=== PATIENT | male | born 1955 | race Caucasian/White ===

== ENCOUNTER 2018-11-07 10:08 | Inpatient (IN) ==
[2018-11-07 10:35] LABS: BLOOD TYPE ARTERIAL; SAMPLE BLOOD
[2018-11-07 10:36] LABS: ALLEN TEST YES; BE 4.4 mmoll (-3.0-3.0); HCO3-(ACT) 28.1 mmoll (20.0-26.0); MODALITY ROOM AIR; O2(CT) 18.8 mL/dL (15.0-23.0); PCO2(98.6) 43 mmHg (35-45); PO2(98.6) 62 mmHg (60-100); SAO2 94.6 % (95.0-100.0); pH(98.6) 7.44 (7.35-7.45)
[2018-11-07] MEDS ORDERED: ALBUTEROL NEB INH ONE (11:02)
--- NOTE | 2018-11-07 11:02 | Diag Imaging Result Doc PS360 ---
EXAM: CHEST-2 VIEWS HISTORY: sob TECHNIQUE: Chest two views COMPARISON: 09/17/2018 FINDINGS: The lungs are well expanded. The heart is not enlarged. The vessels are not distended. There are no infiltrates. No pleural effusions. IMPRESSION: No acute abnormality. Electronically signed by Braydon Pierre 11/07/2018 10:59 AM
[2018-11-07] MEDS ORDERED: SOLU-MEDROL IV ONE (11:03)
--- NOTE | 2018-11-07 11:06 | EKG Report ---
Test Performed on : 11/07/2018 10:23:47 AM Test Reason : SOB Blood Pressure : / mmHG Vent. Rate : 103 BPM Atrial Rate : 103 BPM P-R Int : 132 ms QRS Dur : 124 ms QT Int : 380 ms P-R-T Axes : 072 -05 032 degrees QTc Int : 497 ms Sinus tachycardia. Right bundle branch block Abnormal ECG When compared with ECG of 17-SEP-2018 09:21, No significant change was found Unconfirmed Result
[2018-11-07 11:32] LABS: BASO# 0.04 X1000 (0.0-0.2); BASO% 0.6 % (0.0-0.8); EOS% 4.6 % (0.0-10.0); HEMATOCRIT 43.5 % (42.0-52.0); HEMOGLOBIN 14.6 g/dL (14.0-18.0); LYMPH# 0.79 X1000 (1.2-3.4); MCHC 33.6 g/dL (33-37); MCV 95.4 FL (81-99); MONO# 0.55 X1000 (0.11-0.59); MONO% 8.4 % (1.7-9.3); NEUT# 4.88 X1000 (1.4-6.5); NEUT% 74.4 % (42.2-75.2); PLT 226 X1000 (130-400); RBC 4.56 XMIL (4.7-6.1); RDW 13.5 % (11.5-14.5); WBC 6.56 X1000 (4.8-10.8)
[2018-11-07 11:38] LABS: INR 0.89; PROTIME 12.8 Seconds (11.0-16.0); PTT 23.7 Seconds (22.3-41.8)
[2018-11-07 11:52] LABS: AGAP 10; CHLORIDE 96 mmol/L (98-107); GLUCOSE 116 mg/dL (70-104); SODIUM 137 mmol/L (136-145); TCO2 31 mmol/L (25-35)
[2018-11-07 11:53] LABS: ALB/GLOB RATIO 0.9; ALBUMIN 3.3 g/dL (3.5-5.0); ALKALINE PHOSPHATASE 90 U/L (32-122); BUN 4 mg/dL (8-22); CALCIUM 9.5 mg/dL (8.8-10.2); CK PROFILE 46 U/L (24-204); COSMO 272; CREATININE 0.6 mg/dL (0.7-1.2); ESTIMATED GFR > 60; GOT 48 U/L (10-34); GPT 33 U/L (10-44); TOTAL BILIRUBIN 0.68 mg/dL (0.20-1.00); TOTAL PROTEIN 6.8 g/dL (6.3-8.3)
[2018-11-07] MEDS ORDERED: DUONEB (A & A) INH ONE (12:50)
--- NOTE | 2018-11-07 12:51 | PROVIDER DOCUMENTATION ---
This chart was entered by Alexia Sahu Scribe, acting as scribe for Vivi Arrington MD. HPI-Respiratory General - General Chief Complaint: SEPSIS ALERT - D Stated Complaint: SOB Time Seen by Provider: 11/07/18 10:36 Source: patient Allergies/Adverse Reactions: Patient Allergies Allergy/AdvReac Type Severity Reaction Status Date / Time No Known Allergies Allergy Verified 09/17/18 09:36 Home Medications: Home Medication List Medication Instructions Recorded Confirmed Last Taken Type Albuterol Sulfate [Proair Hfa] 2 puff INHALATION Q4-6H PRN PRN #1 09/17/18 Unknown Rx hfa.aer.ad Cyclobenzaprine [Flexeril] 10 mg PO TID PRN #15 tab 09/17/18 Unknown Rx Lisinopril 10 mg PO DAILY #30 tab 09/17/18 Unknown Rx Naproxen [EC-Naprosyn] 500 mg PO BID PRN #30 tablet.dr 09/17/18 Unknown Rx Prednisone 20 mg PO BID #10 tab 09/17/18 Unknown Rx Albuterol Sulfate 2.5 mg INHALATION Q4H PRN PRN #30 11/07/18 Unknown Rx vial.neb Albuterol Sulfate [Albuterol 8.5 gm INHALATION Q4-6H PRN PRN #1 11/07/18 Unknown Rx Sulfate Hfa] hfa.aer.ad Azithromycin [Zithromax Z-Glenn] 250 mg PO DIRECTED #1 pkg 11/07/18 Unknown Rx Oxycodone HCl/Acetaminophen 1 ea PO Q4-6H PRN PRN 5 Days #20 11/07/18 Unknown Rx [Percocet 10-325 mg Tablet] tab Prednisone 20 mg PO DAILY 7 Days #7 tab 11/07/18 Unknown Rx - History of Present Illness-Resp Nature of Presenting Problem: Patient is a 63 year old male who presents to the ED via EMS with shortness of breath. States history of COPD. Reports he can not afford his medications. Denies recently taking steroids. He also states he has chronic low back pain which is worse today. Quality of Pain: reports: tightness Severity in ED: reports: mild Onset/Duration: reports: gradual Timing: reports: still present, getting worse Modifying Factors: worse with: exertion Associated Symptoms: reports: shortness of breath Similar Symptoms Previously?: Yes Recently seen or treated by another doctor?: No Review of Systems - Adult - REVIEW OF SYSTEMS - ADULT Constitutional: reports: no symptoms reported. denies: chills, fever, fatique Eyes: reports: no symptoms reported Ears, Nose, Mouth & Throat: reports: no symptoms reported Cardiovascular: reports: no symptoms reported Respiratory: reports: see HPI, shortness of breath. denies: cough, wheezing Gastrointestinal: reports: no symptoms reported Genitourinary: reports: no symptoms reported Musculoskeletal: reports: back pain. denies: muscle aches, neck pain Integumentary: reports: no symptoms reported Neurological: reports: no symptoms reported Psychiatric: reports: no symptoms reported Endocrine: reports: no symptoms reported Hematologic/Lymphatic: reports: no symptoms reported Allergic/Immunologic: reports: no symptoms reported All Other Systems: Reviewed and Negative Past History - Adult - PAST MEDICAL HISTORY-ADULT Review of Records: reports: Old Records Reviewed, Nursing Assessment Review, Medications Reviewed, Social history reviewed & non-contributory. Major Childhood Illnesses: reports: denies history Cardiovascular: reports: HTN Respiratory: reports: COPD Gastrointestinal: reports: GERD Obstetrical/Gynecological: reports: denies history Genitourinary: reports: denies history Musculoskeletal: reports: arthritis, chronic pain Neurological: reports: other (chronic lower back pain and neuropathy of LE's) Psychiatric: reports: denies history Endocrine/Immune: reports: Diabetes Other Conditions: reports: denies history - PRIOR SURGERIES/PROCEDURES Surgical/Procedure History: reports: reviewed, not pertinent, orthopedic (extremity) (fasciotomy to the right arm after a snake bite) - PRIOR HOSPITALIZATIONS Prior Hospitalizations: reports: none - IMMUNIZATION STATUS Childhood Immunizations: See Nurse Assessment Flu Vaccine: See Nurse Assessment - FAMILY HISTORY Family History: reviewed, not pertinent - SOCIAL HISTORY Smoking: cigarettes, chew, less than 1 pack/day Provider spent 3-5 mins advising pt. on dangers of tobacco.: Discussed manners to quit use, and f/u contacts for add'l counseling. Substance Use: alcohol Alcohol Use Frequency: every day Number of drinks per typical drinking period:: 5-10 drinks Physical Exam-General - PHYSICAL EXAM-ADULT Initial Vital Signs Reviewed: Yes - CONSTITUTIONAL General Appearance: alert, no apparent distress, obese. negative: lethargic, slow to respond - HEAD, EARS, NOSE, MOUTH & THROAT HENMT: normocephalic/atraumatic, moist mucous membranes. negative: angioedema, hearing deficit - RESPIRATORY Respiratory: chest non-tender, wheezing (expiratory bilaterally.). negative: crackles, stridor - CARDIOVASCULAR Cardiovascular: normal peripheral pulses, regular rate, rhythm. negative: tachycardia, systolic murmur - GASTROINTESTINAL (ABDOMEN) Abdominal Exam: normal bowel sounds, non tender, soft. negative: guarding, rebound - SKIN Integumentary: normal color, normal turgor, warm/dry. negative: cyanosis, ecchymosis, jaundice, rash - NEUROLOGIC Neurologic: grossly normal. negative: aphasia, facial droop - PSYCHIATRIC Psych/Mental Status: normal mood/affect, oriented x 3. negative: anxious Progress - PLAN OF CARE/RESULTS Progress/Plan/Lab Results: Vital Signs - 8 hr 11/07/18 10:14 11/07/18 10:32 11/07/18 10:50 Temperature 97.6 F Pulse Rate 112 H 106 H 105 H Respiratory Rate 25 H 20 17 Blood Pressure 127/81 149/85 163/83 O2 Sat by Pulse Oximetry 89 L 97 91 L 11/07/18 11:00 11/07/18 11:13 11/07/18 11:59 Temperature Pulse Rate 101 H 108 H 95 H Respiratory Rate 22 64 H Blood Pressure 140/70 O2 Sat by Pulse Oximetry 95 94 L 11/07/18 12:00 11/07/18 12:02 11/07/18 12:32 Temperature Pulse Rate 97 H 98 H 103 H Respiratory Rate 11 L 18 15 Blood Pressure 126/67 150/97 O2 Sat by Pulse Oximetry 93 L 95 93 L 11/07/18 13:00 11/07/18 13:02 11/07/18 13:32 Temperature Pulse Rate 102 H 103 H 94 H Respiratory Rate 17 18 17 Blood Pressure 158/86 151/102 O2 Sat by Pulse Oximetry 94 L 94 L 93 L 11/07/18 14:00 11/07/18 14:02 11/07/18 14:33 Temperature Pulse Rate 103 H 98 H 99 H Respiratory Rate 28 H Blood Pressure 138/78 141/92 O2 Sat by Pulse Oximetry 92 L 91 L 93 L 11/07/18 15:00 11/07/18 15:03 11/07/18 15:05 Temperature Pulse Rate 101 H 92 H Respiratory Rate 14 15 Blood Pressure 138/57 O2 Sat by Pulse Oximetry 83 L 90 L 92 L 11/07/18 15:39 Temperature Pulse Rate Respiratory Rate Blood Pressure O2 Sat by Pulse Oximetry 83 L Laboratory Results - last 24 hr 11/07/18 11/07/18 11/07/18 10:26 11:07 11:07 WBC 6.56 RBC 4.56 L Hgb 14.6 Hct 43.5 MCV 95.4 MCH 32.0 H MCHC 33.6 RDW Std Deviation 13.5 Plt Count 226 MPV 9.0 Immature Gran % (Auto) 0.0 Neut % (Auto) 74.4 Lymph % (Auto) 12.0 L Hinds % (Auto) 8.4 Eos % (Auto) 4.6 Baso % (Auto) 0.6 Immature Gran # (Auto) 0.00 Neut # (Auto) 4.88 Lymph # (Auto) 0.79 L Hinds # (Auto) 0.55 Eos # (Auto) 0.30 Baso # (Auto) 0.04 PT INR PTT (Actin FS) Specimen Type ARTERIAL Sample Site R RADIAL pH 7.44 pCO2 43 pO2 62 HCO3 28.1 H Base Excess 4.4 H Oxyhemoglobin 89.0 L* ABG O2 Sat (Calculated) 18.8 ABG O2 Saturation 94.6 L ABG Carboxyhemoglobin 4.80 H ABG Methemoglobin 1.0 Ervin Test YES A-a O2 Difference 34.0 Total Hemoglobin 15.0 Lactate 2.60 H Blood Gas Modality ROOM AIR FiO2 % 21.0 Sodium 137 Potassium 4.0 Chloride 96 L Carbon Dioxide 31 Anion Gap 10 BUN 4 L Creatinine 0.6 L Estimated GFR/1.73 m2 > 60 BUN/Creatinine Ratio 7 Glucose 116 H Calculated Osmolality 272 Calcium 9.5 Total Bilirubin 0.68 AST 48 H ALT 33 Alkaline Phosphatase 90 Creatine Kinase 46 Troponin T Fvo-Y-Mmlknleweww Pept Total Protein 6.8 Albumin 3.3 L Globulin 3.5 Albumin/Globulin Ratio 0.9 Plasma Lactate Urine Source Urine Color Urine Turbidity Urine pH Ur Specific [place] Urine Protein Ur Glucose (Stick) Ur Ketones (Stick) Urine Blood Urine Nitrite Urine Bilirubin Urobilinogen Dipstick Urine Leukocytes Urine WBC (Auto) Urine RBC (Auto) U Epithel Cells (Auto) Urine Bacteria (Auto) 11/07/18 11/07/18 11/07/18 11:07 11:07 11:07 WBC RBC Hgb Hct MCV MCH MCHC RDW Std Deviation Plt Count MPV Immature Gran % (Auto) Neut % (Auto) Lymph % (Auto) Hind[place] % (Auto) Eos % (Auto) Baso % (Auto) Immature Gran # (Auto) Neut # (Auto) Lymph # (Auto) Hinds # (Auto) Eos # (Auto) Baso # (Auto) PT 12.8 INR 0.89 PTT (Actin FS) 23.7 Specimen Type Sample Site pH pCO2 pO2 HCO3 Base Excess Oxyhemoglobin ABG O2 Sat (Calculated) ABG O2 Saturation ABG Carboxyhemoglobin ABG Methemoglobin Ervin Test A-a O2 Difference Total Hemoglobin Lactate Blood Gas Modality FiO2 % Sodium Potassium Chloride Carbon Dioxide Anion Gap BUN Creatinine Estimated GFR/1.73 m2 BUN/Creatinine Ratio Glucose Calculated Osmolality Calcium Total Bilirubin AST ALT Alkaline Phosphatase Creatine Kinase Troponin T < 0.010 Hhn-N-Pykglvbihny Pept 226 H Total Protein Albumin Globulin Albumin/Globulin Ratio Plasma Lactate Urine Source Urine Color Urine Turbidity Urine pH Ur Specific [place] Urine Protein Ur Glucose (Stick) Ur Ketones (Stick) Urine Blood Urine Nitrite Urine Bilirubin Urobilinogen Dipstick Urine Leukocytes Urine WBC (Auto) Urine RBC (Auto) U Epithel Cells (Auto) Urine Bacteria (Auto) 11/07/18 11/07/18 11/07/18 11:07 12:52 14:06 WBC RBC Hgb Hct MCV MCH MCHC RDW Std Deviation Plt Count MPV Immature Gran % (Auto) Neut % (Auto) Lymph % (Auto) Hind[place] % (Auto) Eos % (Auto) Baso % (Auto) Immature Gran # (Auto) Neut # (Auto) Lymph # (Auto) [place] # (Auto) Eos # (Auto) Baso # (Auto) PT INR PTT (Actin FS) Specimen Type Sample Site pH pCO2 pO2 HCO3 Base Excess Oxyhemoglobin ABG O2 Sat (Calculated) ABG O2 Saturation ABG Carboxyhemoglobin ABG Methemoglobin Ervin Test A-a O2 Difference Total Hemoglobin Lactate Blood Gas Modality FiO2 % Sodium Potassium Chloride Carbon Dioxide Anion Gap BUN Creatinine Estimated GFR/1.73 m2 BUN/Creatinine Ratio Glucose Calculated Osmolality Calcium Total Bilirubin AST ALT Alkaline Phosphatase Creatine Kinase Troponin T Xft-S-Cswmrzodzea Pept Total Protein Albumin Globulin Albumin/Globulin Ratio Plasma Lactate 2.1 1.4 Urine Source CLEAN CATCH Urine Color YELLOW Urine Turbidity CLEAR Urine pH 6.0 Ur Specific [place] 1.013 Urine Protein TRACE A Ur Glucose (Stick) NEGATIVE Ur Ketones (Stick) NEGATIVE Urine Blood NEGATIVE Urine Nitrite NEGATIVE Urine Bilirubin NEGATIVE Urobilinogen Dipstick NORMAL Urine Leukocytes NEGATIVE Urine WBC (Auto) <10 Urine RBC (Auto) <10 U Epithel Cells (Auto) <10 Urine Bacteria (Auto) NEGATIVE Orders Category Date Time Status Cardiac Monitoring DIRECTED Care 11/07/18 10:23 Active IV Insertion ORDERED Care 11/07/18 10:45 Completed Notify MD of + Sepsis Screen NOW Care 11/07/18 10:45 Active Notify Physician As Ordered Care 11/07/18 10:45 Active Oxygen Therapy- ED Nursing DIRECTED Care 11/07/18 10:23 Active Saline Loc NOW Care 11/07/18 10:23 Active CHEST-2 VIEWS [RAD] Stat Exams 11/07/18 10:23 Completed ABG [RESP] Routine Lab 11/07/18 10:26 Completed ABG [RESP] Routine Lab 11/07/18 15:18 Ordered BLOOD CULTURE [BLDCUL] Stat Lab 11/07/18 11:36 Results CBC WITH ELECTRONIC DIFF [HEME] Stat Lab 11/07/18 11:07 Completed CK PROFILE [SP CHEM] Stat Lab 11/07/18 11:07 Completed COMPREHENSIVE METABOLIC PANEL [CHEM] Stat Lab 11/07/18 11:07 Completed LACTATE, PLASMA [CHEM] Lab 11/07/18 14:06 Completed LACTATE, PLASMA [CHEM] Lab 11/07/18 16:45 Uncollected LACTATE, PLASMA [CHEM] Q3H Lab 11/07/18 11:07 Completed PRO B-NATRIURETIC PEPTIDE Stat Lab 11/07/18 11:07 Completed PROTIME WITH INR [COAG] Stat Lab 11/07/18 11:07 Completed PTT [COAG] Stat Lab 11/07/18 11:07 Completed TROPONIN T Stat Lab 11/07/18 11:07 Completed URINALYSIS W/POSS RFLX CULT [URINALYSIS] Stat Lab 11/07/18 12:52 Completed Albuterol 2.5MG/Ipratrop 0.5MG [Duoneb (A & A)] Med 11/07/18 12:50 Discontinued 3 ml INH NOW ONE Albuterol Sulfate Inhaler [Ventolin Hfa] Med 11/07/18 14:23 Discontinued 2 puff INH NOW ONE Albuterol [Albuterol Neb] Med 11/07/18 11:02 Discontinued 2.5 mg INH NOW ONE Azithromycin [Zithromax] Med 11/07/18 14:29 Discontinued 500 mg PO NOW ONE Hydromorphone [Dilaudid] Med 11/07/18 14:25 Discontinued 1 mg IV NOW ONE Methylprednisolone Sod Succ [Solu-Medrol] Med 11/07/18 11:03 Discontinued 125 mg IV NOW ONE Ondansetron [Zofran] Med 11/07/18 14:25 Discontinued 4 mg IV NOW ONE Aerosol Treatments Routine Oth 11/07/18 11:03 Completed Aerosol Treatments Routine Oth 11/07/18 12:51 Completed Aerosol Treatments Stat Oth 11/07/18 11:03 Completed Aerosol Treatments Stat Oth 11/07/18 12:51 Completed CP/SOB/Palp >45 yrs of Age Stat Oth 11/07/18 10:22 Ordered MDI Treatments Stat Oth 11/07/18 14:24 Active Oxygen Device Stat Oth 11/07/18 10:45 Completed EKG [EKG] Stat Ther 11/07/18 10:14 Draft Result Diagrams: 11/07/18 11:07 11/07/18 11:07 - EKG 1 Time of EKG reading by physician:: 10:23 EKG Read and Signed by:: Vivi Arrington EKG Interpretation (*Must complete 3 of following elements*): Abnormal Rate: 103 Rhythm: sinus tachycardia [place]: normal QRS: RBB OR Interval: normal Comments: abnormal ECG - XRAY 1 XRAY Study: Chest Impression: See EMR Report ( EXAM: CHEST-2 VIEWS HISTORY: sob TECHNIQUE: Chest two views COMPARISON: 09/17/2018 FINDINGS: The lungs are well expanded. The heart is not enlarged. The vessels are not distended. There are no infiltrates. No pleural effusions. IMPRESSION: No acute abnormality. Electronically signed by Braydon Pierre 11/07/2018 10:59 AM 11/07/18 1059 Interpreting Physician: Braydon Pierre MD Dictated Date/Time: 11/07/18 1059 cc: Vivi Arrington MD; None,PCP) - CONSULTS/PCP/HOSPITALIST Notification #1 *Consult/PCP/Hospitalist*: MARYANN Graves for Hospitalist Time Discussed: 15:38 Reason/Comments: Dr. Arrington consulted with [place] about patient. Consult Disposition: Will see in ED, Admit Departure - Departure Date of Disposition Decision: 11/07/18 Time of Disposition Decision: 14:27 DIAGNOSIS: Hypoxemia, Bronchospasm, Bronchitis Disposition: ADMITTED INPATIENT 09 Certified Medical Emergency: Emergent Condition: Serious Prescriptions: Albuterol Sulfate 2.5 mg INHALATION Q4H PRN PRN #30 vial.neb PRN Reason: wheezing, short of breath Albuterol Sulfate [Albuterol Sulfate Hfa] 8.5 gm INHALATION Q4-6H PRN PRN #1 hfa.aer.ad PRN Reason: wheezing, short of breath Oxycodone HCl/Acetaminophen [Percocet 10-325 mg Tablet] 1 ea PO Q4-6H PRN PRN 5 Days #20 tab PRN Reason: Pain Prednisone 20 mg PO DAILY 7 Days #7 tab Azithromycin [Zithromax Z-Glenn] 250 mg PO DIRECTED #1 pkg Referrals and Follow-Ups: None,PCP [Primary Care Provider] - - Critical Care Note This patient required my direct & personal management of CC.: Yes Total Time (mins): 60 Critical Care Statement: This patient required my direct personal management to treat or rule out processes, the absence of which, could potentiallly result in sudden, clinically significant life or limb threatening deterioration. Attestation - Physician/ LAURI Attestation The physician spent face to face time with patient:: Yes Advanced Practice Provider documentation review:: Supervising physician onsite and consulted in the evaluation and care of this patient. The physician did have a face to face encounter with the patient. This chart was documented by the indicated scribe, (Alexia Sahu Scribe) and accurately reflects the services I performed and decisions made by me, Vivi Arrington MD, as attested by the provider's signature.
[2018-11-07 13:01] LABS: URINE SOURCE CLEAN CATCH
[2018-11-07 13:07] LABS: BILIRUBIN URINE NEGATIVE (NEGATIVE); BLOOD URINE NEGATIVE (NEGATIVE); COLOR YELLOW; GLUCOSE URINE NEGATIVE (NEGATIVE); KETONE URINE NEGATIVE (NEGATIVE); LEUKOCYTES URINE NEGATIVE (NEGATIVE); NITRITE URINE NEGATIVE (NEGATIVE); PROTEIN URINE TRACE mg/dL (NEGATIVE); SP GRAVITY URINE 1.013; TURBIDITY URINE CLEAR (CLEAR); UROBILINOGEN URINE NORMAL (NORMAL)
[2018-11-07 13:08] LABS: UR EPITHELIAL CELLS <10 /HPF (<10); URINE BACTERIA NEGATIVE /HPF; URINE RBC <10 /HPF (<10); URINE WBC <10 /HPF (<10)
[2018-11-07] MEDS ORDERED: VENTOLIN HFA INH ONE (14:23)
[2018-11-07] MEDS ORDERED: ZOFRAN IV ONE (14:25)
[2018-11-07] MEDS ORDERED: DILAUDID IV ONE (14:25)
[2018-11-07] MEDS ORDERED: ZITHROMAX PO ONE (14:29)
[2018-11-07 15:45] LABS: ALLEN TEST YES; BE 5.8 mmoll (-3.0-3.0); BLOOD TYPE ARTERIAL; HCO3-(ACT) 28.8 mmoll (20.0-26.0); METHB 0.9 % (0.0-1.5); O2(CT) 17.1 mL/dL (15.0-23.0); SAMPLE BLOOD; SAO2 82.2 % (95.0-100.0); THB 15.6 g/dL (11.5-17.4); pH(98.6) 7.34 (7.35-7.45)
[2018-11-07 15:54] LABS: O2HB 78.2 % (95.0-99.0); PCO2(98.6) 63 mmHg (35-45); PO2(98.6) 47 mmHg (60-100)
[2018-11-07 15:55] LABS: MODALITY ROOM AIR
--- NOTE | 2018-11-07 17:00 | HISTORY AND PHYSICAL ---
HISTORY OF PRESENT ILLNESS: Mr. Bland noticed increased trouble breathing. It has been coming on for several days. He has known history of COPD. He also drinks about 8 beers a day. He has chronic low back pain. History of hypertension, diabetes mellitus type 2, osteoarthritis, gastroesophageal reflux disease. He has no primary care physician. Surgical history he had a fasciotomy on the right arm after snake bite. He has been bit by snakes total 5 times. 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 He does not report fever, chills, just increased work of breathing and difficulty with dyspnea at rest and with any exertion. Cannot really get around very well. He came to the emergency room at [facility] and was put on some supplemental O2, feels better. He also reports that he has some apnea or obstructive sleep apnea, so we will try and set up the CPAP for him at night. We are going to admit him for COPD exacerbation. ALLERGIES: Unknown. No known drug allergies. FAMILY HISTORY: Did not elicit a family history. Looking back at the records, I do not see any record of significant family history. REVIEW OF SYSTEMS: Constitutional: He does not report any fever or chills, or change in weight. GI: And. : Does not report any change in his bowels or urination. No gross hematuria or dysuria. Respiratory: As above. Increased dyspnea, increased wheezing, increased orthopnea as well. Cardiovascular: No chest pain or tachy palpitations complained of. Endocrine/hematologic: No significant history. Musculoskeletal/Neurologic: No focal changes or complaints. PHYSICAL EXAMINATION: VITAL SIGNS: Temperature 98 degrees, pulse 90, respirations 16, blood pressure 176/105, O2 saturation was 93% on 5 L nasal cannula. Weight is 240 pounds, height 5 feet and 8 inches. HEENT: Pupils are equal and round. NECK: Difficult to look at his neck veins. He has a very thick neck, but appears he has elevated CVP. He has chris complexion. I did not appreciate any cervical or supraclavicular adenopathy. Neck was supple. No sign of thyromegaly. LUNGS: Have expiratory wheezing throughout all of his lung shin. I do hear air flow in all shin anterolateral. He has expiratory phase which is about 1.5 to his inspiratory phase, 1.5 to 1 ratio. CARDIOVASCULAR: Regular rhythm and rate without murmur or S3. PMI is nondisplaced. Carotid, radial, femoral pulses 2+ and symmetrical. ABDOMEN: Nontender. Positive bowel sounds. EXTREMITIES: He has 1+ edema from ankles to mid bedoya. He also has chronic venous stasis dermatosis and discoloration. LABORATORY DATA: White count 6560, hematocrit 43 with an MCV of 95, platelet count 226,000. Sodium 137, potassium 4.0, chloride 96, BUN 4, creatinine 0.6, blood sugar 116, AST is 48, ALT is 33, alkaline phosphatase is 90. Troponin is less than 0.01. ProBNP is 226. Albumin 3.3. ProTime is 12.8, INR 0.89, PTT is 23. Urinalysis unremarkable. Blood gases on arrival revealed pH is 7.34, pCO2 63, pO2 is 47, and O2 saturation is 82%. This is on room air. Chest x-ray: No acute abnormality. Lungs well expanded. Heart was not enlarged. Vessels not distended. ASSESSMENT AND PLAN: 1. Chronic obstructive pulmonary disease exacerbation with component of bronchospasm. We will put him on some Solu-Medrol 80 mg IV q.8 h. We will give him a steroid inhaler, use Symbicort 80 mg 2 puffs twice a day. We will put him on DuoNeb q.4 h. while awake and every 2 hours p.r.n. Supplementary O2 nasal cannula and respiratory follow-up per protocol. We will see if we can get CPAP at nighttime for him. I am going to go ahead and put him on some Rocephin or ceftriaxone 1 g now and then q.24 h. to cover for bronchitic organisms and treat him for acute bronchitis as well. I do not see any evidence of pneumonia. 2. Chronic low back pain. Aware. 3. Hypertension. Watch blood pressure. 4. Diabetes mellitus, type 2. Put on sliding scale and put on I think low sliding scale and do pattern sugars. 5. He does drink significant amount of alcohol. I am going to go ahead and try and order an alcoholic beverage with every meal in attempts to avoid withdrawal. He has no plans on stopping alcohol any time soon and we will have him on Ativan p.r.n. for withdrawal symptoms. 6. History of gastroesophageal reflux disease. We will make sure he is on a proton pump inhibitor for GI prophylaxis. He can take that p.o. 7. Osteoarthritis. 8. Peripheral neuropathy, probably related to diabetes. 9. Obesity. Not sure what the status of his hepatic function is. We have no reason to investigate that at this time. His albumin looks good and his pro time is 12.8, so those are normal, so his hepatic function looks good. We will check a chest x-ray in the morning, portable. We will check again his electrolytes, basic metabolic profile and a magnesium level. We will check his T4, TSH, B12, folate, and I think we will get an a.m. cortisol on him as well. cc: Ervin Doyle MD
[2018-11-07] MEDS ORDERED: ZOFRAN IV PRN (17:58)
[2018-11-07] MEDS ORDERED: TYLENOL PO PRN (17:58)
[2018-11-07 18:40] LABS: FREE T4 1.31 ng/dL (0.93-1.70); TSH 3.61 uIUmL (0.27-4.20)
[2018-11-07] MEDS: ROCEPHIN 1 GM in NS 50 ML IV SCH (19:19)
[2018-11-07] MEDS: LOVENOX SUBQ SCH (19:19)
[2018-11-07] MEDS: DUONEB (A & A) INH PRN (19:20)
[2018-11-07] MEDS: BEER PO SCH (19:30)
[2018-11-07] MEDS: SOLU-MEDROL IV SCH (20:33)
[2018-11-08] MEDS: SYMBICORT 80/4.5 MICROGM INHALER INH SCH ×3 (01:51→19:20)
[2018-11-08] MEDS: SOLU-MEDROL IV SCH ×3 (04:15→21:11)
[2018-11-08 06:27] LABS: HEMATOCRIT 42.9 % (42.0-52.0); LYMPH% 5.7 % (20.5-51.1); MCH 31.5 PG (27-31); MCHC 32.6 g/dL (33-37); MCV 96.6 FL (81-99); MONO% 3.1 % (1.7-9.3); MPV 9.2 FL (7.4-10.4); NEUT% 90.9 % (42.2-75.2); PLT 237 X1000 (130-400); RBC 4.44 XMIL (4.7-6.1); RDW 13.3 % (11.5-14.5); WBC 9.77 X1000 (4.8-10.8)
[2018-11-08 06:28] LABS: BASO# 0.01 X1000 (0.0-0.2); BASO% 0.1 % (0.0-0.8); IMM GRAN# 0.02 X1000 (0.0-0.04); IMM GRAN% 0.2 % (0.0-0.5); LYMPH# 0.56 X1000 (1.2-3.4); NEUT# 8.88 X1000 (1.4-6.5)
--- NOTE | 2018-11-08 06:29 | Diag Imaging Result Doc PS360 ---
CHEST-PORTABLE - 11/08/2018 INDICATION: Acute COPD exac. COMPARISON: 11/07/2018 FINDINGS: There is cardiomegaly and pulmonary vascular congestion. No infiltrates or edema. IMPRESSION: Cardiomegaly and pulmonary vascular congestion. Electronically signed by Marc Dodson 11/08/2018 6:27 AM
[2018-11-08 06:55] LABS: AGAP 13; BUN 7 mg/dL (8-22); CALCIUM 9.2 mg/dL (8.8-10.2); CHLORIDE 95 mmol/L (98-107); COSMO 277; CREATININE 0.5 mg/dL (0.7-1.2); ESTIMATED GFR > 60; GLUCOSE 157 mg/dL (70-104); POTASSIUM 3.9 mmol/L (3.5-5.1); SODIUM 138 mmol/L (136-145); TCO2 30 mmol/L (25-35)
[2018-11-08] MEDS: DUONEB (A & A) INH PRN ×3 (08:03→19:20)
[2018-11-08] MEDS: BEER PO SCH ×3 (08:25→17:05)
[2018-11-08] MEDS ORDERED: SOLU-MEDROL IV SCH (11:43)
[2018-11-08] MEDS ORDERED: MILK OF MAGNESIA PO PRN (11:44)
[2018-11-08] MEDS ORDERED: DULCOLAX PR PRN (11:44)
[2018-11-08] MEDS: ULTRAM PO PRN ×2 (11:59→17:35)
--- NOTE | 2018-11-08 12:02 | PROGRESS NOTE ---
DATE: 11/08/2018 SUBJECTIVE: Mr. Bland is still having wheezing, but he is breathing better, feels a little better than yesterday. OBJECTIVE: Vital Signs: Temperature 98.5 degrees, pulse 100, respirations 20, blood pressure 133/72. HEENT: Pupils are equal and round. Lungs: Clear anterior lateral. He does have end expiratory wheezing still but not as prolonged expiratory phase. Abdomen: Soft. Skin: Warm and dry. Extremities: He has 1+ pitting edema but less edema than yesterday in his ankles and lower extremities. LABORATORY DATA: Blood sugar 172, 196. Chest x-ray from this morning: Cardiomegaly, pulmonary vascular congestion. ASSESSMENT AND PLAN: 1. Chronic obstructive pulmonary disease exacerbation, component of bronchospasm. We have him on Solu-Medrol 80 mg IV q.8 and steroid inhaler, Symbicort, as well as duo nebs. I am going to diurese him some as he has some pulmonary venous hypertension. 2. Chronic back pain. Aware. Give him something a little stronger for pain, use tramadol. 3. Hypertension. Blood pressures appear to be well controlled. 4. History of significant alcohol. He is getting some alcohol with every meal. No sign of withdrawals. 5. History of gastroesophageal reflux. He is on a proton pump inhibitor. 6. Osteoarthritis, lower back pain, chronic. 7. Peripheral neuropathy, aware, probably secondary to diabetes. 8. Obesity. Encourage weight reduction. See if we can make sure he has got something for his bowels and I will decrease the methylprednisone down to 40 mg q.8. I am going to give him a dose of Lasix today and try him on some tramadol p.r.n. pain. cc: Ervin Doyle MD
[2018-11-08] MEDS: LOVENOX SUBQ SCH (17:31)
[2018-11-08] MEDS: ROCEPHIN 1 GM in NS 50 ML IV SCH (21:11)
[2018-11-08] MEDS: ATIVAN IV PRN (21:14)
[2018-11-09] MEDS: DUONEB (A & A) INH PRN ×6 (01:48→23:25)
[2018-11-09] MEDS: SOLU-MEDROL IV SCH (03:32)
[2018-11-09] MEDS: ATIVAN IV PRN ×3 (03:38→20:05)
[2018-11-09] MEDS: SYMBICORT 80/4.5 MICROGM INHALER INH SCH ×2 (07:45→19:25)
[2018-11-09] MEDS ORDERED: LASIX IV ONE (10:39)
[2018-11-09] MEDS ORDERED: SOLU-MEDROL IV PRN (10:41)
--- NOTE | 2018-11-09 11:14 | PROGRESS NOTE ---
DATE: 11/09/2018 SUBJECTIVE: He is breathing better. Still does not feel like he can get a deep breath, but no wheezing. He remains afebrile. He is not coughing up any thick sputum. OBJECTIVE: Vital signs: Temperature 97.7 degrees, pulse 93, respirations 16, blood pressure 123/80. HEENT: Pupils are equal. Neck: No distended neck veins. CVP less than 6 cm estimated from right atrium. Lungs: Clear anterior, lateral and posterior and inspiratory to expiratory phase equal. Cardiovascular: Regular rhythm and rate without murmur or S3. Abdomen: Soft. Skin: Warm and dry. IMAGING: Chest x-ray from yesterday, cardiomegaly, pulmonary vascular congestion. ASSESSMENT AND PLAN: 1. Chronic obstructive pulmonary disease with exacerbation, element of bronchospasm and some pulmonary venous hypertension, so on Solu-Medrol which I tapered down yesterday. I will taper down a little more on the Symbicort steroid inhaler and DuoNeb. 2. Chronic back pain. Aware. 3. Hypertension. 4. History of significant alcohol intake. He has a drink of alcohol with every meal. 5. History of gastroesophageal reflux disease, on proton pump inhibitor. 6. Osteoarthritis. 7. Peripheral neuropathy, probably secondary to diabetes. 8. Obesity aware. 9. I will am going to cut down his methylprednisone to 40 mg IV q.12. We will give him 1 dose of Lasix today and check his electrolytes and another chest x-ray in the morning. cc: Ervin Doyle MD
[2018-11-09] MEDS: BEER PO SCH ×3 (11:30→16:37)
[2018-11-09] MEDS: LOVENOX SUBQ SCH ×2 (16:37→19:23)
[2018-11-09] MEDS: ROCEPHIN 1 GM in NS 50 ML IV SCH (20:05)
[2018-11-10] MEDS: ULTRAM PO PRN ×2 (03:00→15:32)
[2018-11-10] MEDS: DUONEB (A & A) INH PRN ×4 (07:46→23:10)
[2018-11-10] MEDS: SYMBICORT 80/4.5 MICROGM INHALER INH SCH ×2 (07:46→19:15)
[2018-11-10] MEDS: BEER PO SCH ×3 (07:58→17:15)
[2018-11-10] MEDS ORDERED: LASIX IV ONE (15:03)
[2018-11-10] MEDS ORDERED: SOLU-MEDROL IV PRN (15:05)
--- NOTE | 2018-11-10 15:18 | PROGRESS NOTE ---
DATE: 11/10/2018 SUBJECTIVE: He is breathing better, doing better. He is eating. His bowels have moved. He feels like he is getting deeper breath. OBJECTIVE: Vital Signs: Temp 98.6 degrees, pulse 107, respirations 20, blood pressure 154/82. HEENT: Pupils are equal and round. Lungs: Clear in all lung shin. Cardiovascular: Regular rhythm and rate without murmur or S3. Urine output 3200 mL. ASSESSMENT AND PLAN: 1. Chronic obstructive pulmonary disease with exacerbation and bronchospasm. He had some pulmonary venous hypertension. He has improved. Giving him Solu-Medrol. We have diuresed him some. 2. Chronic lower back pain. I am going to get some films of his back and his neck at his request. 3. Hypertension. 4. Significant alcohol intake, and so he is getting alcohol with meals. 5. History of gastroesophageal reflux disease, on proton pump inhibitor. 6. Osteoarthritis. 7. Peripheral vascular disease, probably secondary to diabetes. 8. Obesity. 9. He is on methylprednisone 40 mg intravenously every 12 hours, and I will reduce that down to 20 mg every 12 hours, give him another dose of Lasix today. We will check and see if we can wean him off oxygen, and whether he needs home oxygen. Possibility of going home tomorrow. cc: Ervin Doyle MD
[2018-11-10] MEDS: LOVENOX SUBQ SCH (17:15)
[2018-11-10] MEDS: ATIVAN IV PRN (22:10)
[2018-11-10] MEDS: ROCEPHIN 1 GM in NS 50 ML IV SCH (22:15)
[2018-11-11] MEDS: DUONEB (A & A) INH PRN ×2 (07:38→15:15)
[2018-11-11] MEDS: SYMBICORT 80/4.5 MICROGM INHALER INH SCH (07:38)
[2018-11-11] MEDS: BEER PO SCH ×3 (08:54→17:21)
--- NOTE | 2018-11-11 14:05 | Diag Imaging Result Doc PS360 ---
EXAM: CERVICAL SPINE 2-VIEWS 11/11/2018 HISTORY: neck pain TECHNIQUE: AP and lateral cervical spine COMMENT: There is disc space narrowing and anterior osteophyte formation at C5-6 and C6-7. There is no evidence of fracture subluxation or prevertebral soft tissue swelling. IMPRESSION: Degenerative disc disease. Electronically signed by Wolfgang Carlisle 11/11/2018 2:03 PM
--- NOTE | 2018-11-11 14:06 | Diag Imaging Result Doc PS360 ---
EXAM: LUMBAR SPINE 2-VIEWS 11/11/2018 HISTORY: lower back pain TECHNIQUE: Lumbosacral spine AP and lateral COMMENT: The pedicles are intact. There is degenerative disc disease with osteophyte formation at L1-2, L2-3, L3-4, and posterior osteophyte formation at the L4-5 and L5-S1 levels. There is no evidence of fracture or subluxation. Compared to 03/09/2016 the appearance of the lumbar spine has not changed significantly. IMPRESSION: Degenerative disc disease. Electronically signed by Wolfgang Carlisle 11/11/2018 2:04 PM
--- NOTE | 2018-11-11 14:10 | PROGRESS NOTE ---
DATE: 11/11/2018 SUBJECTIVE: He does feel better and is breathing better. He is eligible for oxygen. We will set him up for 4 L per nasal cannula. I do want to get x-rays of his neck and back since he still has neck and back pain. OBJECTIVE: Vital Signs: Temperature 98.5 degrees, pulse 110, respirations 24, and blood pressure 137/85. HEENT: Pupils are equal and round. Lungs: Clear in all lung shin. Cardiovascular: Regular rhythm and rate without murmur or S3. Urine output good. Hope to get him home this afternoon. ASSESSMENT AND PLAN: 1. Chronic obstructive pulmonary disease with exacerbation. It looks like he has chronic hypoxemia. Will require O2. We have tapered down his Solu-Medrol. We will continue steroid inhaler and probably will benefit from Spiriva too. 2. Chronic lower back pain and neck pain. We will get some radiograph x-rays on his neck and lower back. 3. Hypertension. 4. Alcohol intake. He is getting alcohol with meals. 5. History of gastroesophageal reflux. Continue proton pump inhibitor. 6. Osteoarthritis. 7. Peripheral vascular disease, probably secondary to diabetes. 8. Obesity. cc: Ervin Doyle MD
[2018-11-11 16:08] VITALS: BP 158/78
--- NOTE | 2018-11-11 17:14 | DISCHARGE SUMMARY ---
ADMISSION DATE: 11/07/2018 DISCHARGE DATE: 11/11/2018 He has no primary care physician. He showed up with increased trouble breathing that had been coming on for several days. Has a history of COPD. He drinks about 8 beers a day. Had chronic lower back pain, history of hypertension, diabetes mellitus type 2, osteoarthritis, gastroesophageal reflux. Had no primary care physician. Surgical history, had a fasciotomy in his right arm from a snake bite several years ago. He has had a total of 5 different snake bites. 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 His main concern was increased work of breathing and dyspnea and was not getting around very well. Came to [facility] ER. No known drug allergies. ASSESSMENT AND PLAN: 1. On evaluation, appeared to have chronic obstructive pulmonary disease exacerbation and component of bronchospasm and hypoxemia. He was put on Solu-Medrol, a steroid inhaler, and Symbicort, and he did show steady improvement. He did wear a CPAP at night in the hospital. We had him empirically on ceftriaxone, although never saw any true pneumonia. 2. Chronic lower back pain. 3. Hypertension. 4. Diabetes mellitus, type 2. Sugars were patterned. 5. Significant alcohol consumption every day, so we ordered some alcohol with meals to keep him from going through withdrawals. He had no desire to quit alcohol, but we did have discussions about the importance of cessation. 6. History of gastroesophageal reflux disease. 7. Osteoarthritis. 8. Peripheral neuropathy, probably related to diabetes. 9. Obesity. I did get some x-rays cervical spine and lower back. He has degenerative disk disease in the cervical spine as well as the lower lumbar spine. He has posterior osteophyte formation at L4-5 and L5-S1, and he had degenerative disk disease with osteophyte formation in L1-2, L2-3, and L3-4. The patient felt better. He was eligible for oxygen. We set this up for 4 L at home. We discussed the importance of losing weight and quitting alcohol. Encouraged him to find a primary care physician. DISCHARGE MEDICATIONS: Symbicort 80 mcg/4.5 mcg 2 puffs b.i.d. Put him on a Medrol Dosepak. I gave him some tramadol for pain 50 mg q.6 h., and I gave him #40 of those. Then, he will be on his oxygen. cc: Ervin Doyle MD
== END 2018-11-11 18:04 | disposition home or self-care (01) | DRG 191 ==
LOC: ED 10:08 → 4N 17:23
PROVIDERS: ATTEND Emergency Medicine
CPT/HCPCS: 71010; 71020; 71045; 71046; 72040; 72100; 80048; 80053; 81001; 82533; 82550; 82607; 82746; 82805; 82948; 83605; 83880; 84439; 84443; 84484; 85025; 85610; 85730; 87040; 93005; 94640; 94660; 94761; 94799; 96374; 96375; 97162; 97530; 99285; 99291; A9270; J0696; J1170; J1650; J1940; J2060; J2405; J2920; J2930; XXXXX

== ENCOUNTER 2019-06-03 08:58 | Inpatient (IN) ==
--- NOTE | 2019-06-03 09:25 | EKG Report ---
Test Performed on : 06/03/2019 09:09:38 AM Test Reason : sob Blood Pressure : / mmHG Vent. Rate : 095 BPM Atrial Rate : 095 BPM P-R Int : 138 ms QRS Dur : 138 ms QT Int : 396 ms P-R-T Axes : 071 006 009 degrees QTc Int : 497 ms Normal sinus rhythm. Possible Left atrial enlargement Right bundle branch block Abnormal ECG When compared with ECG of 07-NOV-2018 10:23, No significant change was found Unconfirmed Result
--- NOTE | 2019-06-03 09:34 | Diag Imaging Result Doc PS360 ---
EXAM: CHEST-1 VIEW HISTORY: positive sepsis screen TECHNIQUE: Single view COMPARISON: 11/08/2018 FINDINGS: The lungs are well expanded. The heart is not enlarged. The vessels are not distended. There is a small right pleural effusion versus pleural thickening. Mild increased interstitial markings in the right base. IMPRESSION: Small right pleural effusion with basilar atelectasis and possibly a small underlying infiltrate. Electronically signed by Braydon Pierre 06/03/2019 9:32 AM
[2019-06-03 09:48] LABS: BASO# 0.05 X1000 (0.0-0.2); BASO% 0.6 % (0.0-0.8); EOS# 0.14 X1000 (0.0-0.7); EOS% 1.6 % (0.0-10.0); HEMOGLOBIN 13.1 g/dL (14.0-18.0); IMM GRAN# 0.07 X1000 (0.0-0.04); IMM GRAN% 0.8 % (0.0-0.5); LYMPH# 0.86 X1000 (1.2-3.4); MCH 32.5 PG (27-31); MCHC 35.4 g/dL (33-37); MCV 91.8 FL (81-99); MONO# 0.77 X1000 (0.11-0.59); MPV 9.7 FL (7.4-10.4); NEUT# 6.71 X1000 (1.4-6.5); PLT 337 X1000 (130-400); RBC 4.03 XMIL (4.7-6.1); RDW 18.1 % (11.5-14.5)
[2019-06-03 10:09] LABS: INR 1.24; PROTIME 15.8 Seconds (11.0-16.0)
[2019-06-03 10:10] LABS: PTT 43.7 Seconds (22.3-41.8)
[2019-06-03 10:20] LABS: AGAP 14; ALB/GLOB RATIO 0.8; ALBUMIN 2.7 g/dL (3.5-5.0); ALKALINE PHOSPHATASE 283 U/L (32-122); BUN 6 mg/dL (8-22); CALCIUM 9.2 mg/dL (8.8-10.2); CHLORIDE 95 mmol/L (98-107); CK PROFILE 33 U/L (24-204); COSMO 261; CREATININE 0.6 mg/dL (0.7-1.2); ESTIMATED GFR > 60; GLUCOSE 106 mg/dL (70-104); GOT 133 U/L (10-34); GPT 43 U/L (10-44); POTASSIUM 3.9 mmol/L (3.5-5.1); SODIUM 131 mmol/L (136-145); TCO2 22 mmol/L (25-35); TOTAL PROTEIN 6.3 g/dL (6.3-8.3)
[2019-06-03] MEDS ORDERED: DILAUDID IV ONE (11:13)
[2019-06-03] MEDS ORDERED: ZOFRAN IV ONE (11:13)
--- NOTE | 2019-06-03 11:54 | Diag Imaging Result Doc PS360 ---
EXAM: CT ABD/PELVIS W/IV CONT ONLY 06/03/2019 HISTORY: abdo pain, distension TECHNIQUE: This exam was performed using automated exposure control, adjustment of mA or kV according to patient size, and/or use of iterative reconstruction technique. COMMENT: There are no previous studies available for comparison. There is atelectasis or fibrosis in the inferior right anterior middle lobe. There is ascites. The spleen is enlarged measuring almost 14.7 cm in AP dimension. The liver is also enlarged. The gallbladder is slightly distended but there are no apparent stones. The kidneys are without evidence of hydronephrosis masses or stones. The pancreas is unremarkable. There is some enlargement of the medial lobe of the left adrenal gland. This measures 15 mm in short axis. The aorta is partially calcified but not distended. The portal vein appears to be patent. There is no evidence of bowel obstruction. The appendix is normal in appearance. There is no evidence of significant adenopathy. Pelvis: There are scattered diverticula present in the sigmoid colon without evidence of diverticulitis. The urinary bladder is not distended. There are calcifications in the prostate gland. There is a fat-containing right inguinal hernia. There is some gas phenomenon in the sacroiliac joints and the L5-S1 disc space. There are osteophytes at multiple lower thoracic and lumbar levels. No acute bony abnormalities are present. IMPRESSION: Cirrhosis with splenomegaly, and ascites. Left adrenal enlargement possibly due to an adenoma. Electronically signed by Wolfgang Carlisle 06/03/2019 11:51 AM
[2019-06-03 12:00] LABS: URINE SOURCE CLEAN CATCH
[2019-06-03 12:08] LABS: BLOOD URINE NEGATIVE (NEGATIVE); COLOR YELLOW; GLUCOSE URINE NEGATIVE (NEGATIVE); KETONE URINE NEGATIVE (NEGATIVE); LEUKOCYTES URINE NEGATIVE (NEGATIVE); NITRITE URINE NEGATIVE (NEGATIVE); PROTEIN URINE TRACE mg/dL (NEGATIVE); SP GRAVITY URINE 1.031; TURBIDITY URINE HAZY (CLEAR); UROBILINOGEN URINE 2 mg/dL (NORMAL)
[2019-06-03 12:17] LABS: UR EPITHELIAL CELLS <10 /HPF (<10); URINE BACTERIA NEGATIVE /HPF; URINE RBC <10 /HPF (<10); URINE WBC <10 /HPF (<10)
--- NOTE | 2019-06-03 13:02 | PROVIDER DOCUMENTATION ---
This chart was entered by Sandhya Saucedo Scribe, acting as scribe for Jose Box MD. HPI-Abdominal Pain/GI Problem - General Chief Complaint: Abdominal Pain Stated Complaint: SOB,ABD PAIN,VOMITING Time Seen by Provider: 06/03/19 09:59 Source: patient Allergies/Adverse Reactions: Patient Allergies Allergy/AdvReac Type Severity Reaction Status Date / Time No Known Allergies Allergy Verified 06/03/19 11:58 Home Medications: Home Medication List Medication Instructions Recorded Confirmed Last Taken Type NK [No Home Medications] 06/03/19 06/03/19 Unknown History - History of Present Illness-ABD Nature of Presenting Problems: 64 yowm presents to the ed with c/o abd pain, nausea, vomiting and diarrhea. pt is jaundice in color and abdomen is distended. pt sts is a daily berr drinker for the last 20 years but has not had a drink in 5 days. pt does not appear to be going through detox. pt sx have been present for 4 days and have worsened Abdominal Pain Onset Location: reports: generalized abdomen Quality of Pain: reports: fullness, pressure Severity in ED: reports: moderate Onset/Duration: reports: 4 days ago Timing: reports: still present, constant, getting worse Activities at Onset: reports: light activity (with ETOH abuse) Exposure to sick contacts?: No Modifying Factors: worse with: eating, palpation Associated Symptoms: reports: diarrhea (x8), nausea, shortness of breath, vomiting (x8). denies: back/neck pain, chest pain, cough, syncope Last BM: this morning Dark Stools Present?: reports: none noticed Rectal Bleeding: reports: none # of Diarrhea Episodes: 8 (last 24 hrs) Rectal Pain: reports: none # of Vomiting Episodes: 8 (last 24 hrs) Emesis Description: reports: other (anything taken PO) Bruising or Bleeding Gums?: No Similar Symptoms Previously?: No Recently seen or treated by another doctor?: No Review of Systems - Adult - REVIEW OF SYSTEMS - ADULT Constitutional: denies: chills, fever Eyes: reports: no symptoms reported Ears, Nose, Mouth & Throat: reports: no symptoms reported Cardiovascular: denies: chest pain, palpitations Respiratory: reports: see HPI, shortness of breath, wheezing. denies: cough Gastrointestinal: reports: see HPI, abdominal pain, diarrhea, nausea, vomiting Genitourinary: reports: no symptoms reported Musculoskeletal: denies: back pain, neck pain Integumentary: reports: no symptoms reported Neurological: reports: no symptoms reported Psychiatric: reports: no symptoms reported Endocrine: reports: no symptoms reported Hematologic/Lymphatic: reports: no symptoms reported Allergic/Immunologic: reports: no symptoms reported All Other Systems: Reviewed and Negative Past History - Adult - PAST MEDICAL HISTORY-ADULT Review of Records: reports: Old Records Reviewed, Nursing Assessment Review, Medications Reviewed, Social history reviewed & non-contributory. Major Childhood Illnesses: reports: denies history Cardiovascular: reports: HTN Respiratory: reports: COPD Gastrointestinal: reports: GERD Genitourinary: reports: denies history Musculoskeletal: reports: arthritis, chronic pain Neurological: reports: other (chronic lower back pain and neuropathy of LE's) Psychiatric: reports: denies history Diabetes Type: Type 2 Diabetes controlled by:: Diet Other Conditions: reports: denies history - PRIOR SURGERIES/PROCEDURES Surgical/Procedure History: reports: reviewed, not pertinent, orthopedic (extremity) (fasciotomy to the right arm after a snake bite) - PRIOR HOSPITALIZATIONS Prior Hospitalizations: reports: none - IMMUNIZATION STATUS Childhood Immunizations: See Nurse Assessment Flu Vaccine: See Nurse Assessment - FAMILY HISTORY Family History: reviewed, not pertinent - SOCIAL HISTORY Smoking: cigarettes, less than 1 pack/day Provider spent 3-5 mins advising pt. on dangers of tobacco.: Discussed manners to quit use, and f/u contacts for add'l counseling. Substance Use: alcohol Alcohol Use Frequency: every day Number of drinks per typical drinking period:: 5-10 drinks Living Situation: family Physical Exam-General - PHYSICAL EXAM-ADULT Initial Vital Signs Reviewed: Yes - CONSTITUTIONAL General Appearance: alert, mild distress, obese - EYES Eyes: PERRL/EOMI, scleral icterus - HEAD, EARS, NOSE, MOUTH & THROAT HENMT: negative: moist mucous membranes (dry oral) - NECK Neck: non-tender, full range of motion, supple - RESPIRATORY Respiratory: chest non-tender, wheezing (bilateral), increased rate (25) - CARDIOVASCULAR Cardiovascular: normal peripheral pulses, regular rate, rhythm - CHEST (BREASTS) Chest/Breast: deferred - GASTROINTESTINAL (ABDOMEN) Abdominal Exam: distended, guarding, tenderness (generalized), hepatomegaly, other (c/o nausea) - GENITOURINARY Male Genitalia: deferred Rectal Exam: deferred Hemoccult Exam: deferred - MUSCULOSKELETAL Back Exam: no CVA tenderness, no vertebral tenderness Extremity: normal range of motion, normal capillary refill, pelvis stable - SKIN Integumentary: warm/dry, jaundice - NEUROLOGIC Neurologic: grossly normal - PSYCHIATRIC Psych/Mental Status: normal mood/affect, normal thought content, normal thought process, oriented x 3 Progress - PLAN OF CARE/RESULTS Progress/Plan/Lab Results: Vital Signs - 8 hr 06/03/19 09:05 Temperature 98.3 F Pulse Rate 96 H Respiratory Rate 25 H Blood Pressure 134/59 O2 Sat by Pulse Oximetry 95 Laboratory Results - last 24 hr 06/03/19 06/03/19 06/03/19 09:23 09:23 09:23 WBC 8.60 RBC 4.03 L Hgb 13.1 L Hct 37.0 L MCV 91.8 MCH 32.5 H MCHC 35.4 RDW Std Deviation 18.1 H Plt Count 337 MPV 9.7 Immature Gran % (Auto) 0.8 H Neut % (Auto) 78.0 H Lymph % (Auto) 10.0 L [place] % (Auto) 9.0 Eos % (Auto) 1.6 Baso % (Auto) 0.6 Immature Gran # (Auto) 0.07 H Neut # (Auto) 6.71 H Lymph # (Auto) 0.86 L [place] # (Auto) 0.77 H Eos # (Auto) 0.14 Baso # (Auto) 0.05 PT 15.8 INR 1.24 PTT (Actin FS) 43.7 H Sodium 131 L Potassium 3.9 Chloride 95 L Carbon Dioxide 22 L Anion Gap 14 BUN 6 L Creatinine 0.6 L Estimated GFR/1.73 m2 > 60 BUN/Creatinine Ratio 10 Glucose 106 H Calculated Osmolality 261 Calcium 9.2 Total Bilirubin 26.80 H AST 133 H ALT 43 Alkaline Phosphatase 283 H Creatine Kinase 33 Troponin T High Sens Total Protein 6.3 Albumin 2.7 L Globulin 3.6 Albumin/Globulin Ratio 0.8 Plasma Lactate 06/03/19 06/03/19 09:23 09:23 WBC RBC Hgb Hct MCV MCH MCHC RDW Std Deviation Plt Count MPV Immature Gran % (Auto) Neut % (Auto) Lymph % (Auto) [place] % (Auto) Eos % (Auto) Baso % (Auto) Immature Gran # (Auto) Neut # (Auto) Lymph # (Auto) [place] # (Auto) Eos # (Auto) Baso # (Auto) PT INR PTT (Actin FS) Sodium Potassium Chloride Carbon Dioxide Anion Gap BUN Creatinine Estimated GFR/1.73 m2 BUN/Creatinine Ratio Glucose Calculated Osmolality Calcium Total Bilirubin AST ALT Alkaline Phosphatase Creatine Kinase Troponin T High Sens 26 H Total Protein Albumin Globulin Albumin/Globulin Ratio Plasma Lactate 1.8 Orders Category Date Time Status Cardiac Monitoring DIRECTED Care 06/03/19 09:10 Active IV Insertion ORDERED Care 06/03/19 09:10 Active Notify MD of + Sepsis Screen NOW Care 06/03/19 09:10 Active Notify Physician As Ordered Care 06/03/19 09:10 Active CHEST-1 VIEW [RAD] Stat Exams 06/03/19 09:[address] ABD/PELVIS W/IV CONT ONLY [CT] Stat Exams 06/03/19 10:34 Ordered AMMONIA [CHEM] Stat Lab 06/03/19 10:34 Uncollected BLOOD CULTURE [BLDCUL] Stat Lab 06/03/19 09:10 Uncollected CBC WITH DIFF [HEME] Stat Lab 06/03/19 09:23 Completed CK PROFILE [SP CHEM] Stat Lab 06/03/19 09:23 Completed COMPREHENSIVE METABOLIC PANEL [CHEM] Stat Lab 06/03/19 09:23 Completed LACTATE, PLASMA [CHEM] Q3H Lab 06/03/19 09:23 Completed LACTATE, PLASMA [CHEM] Q3H Lab 06/03/19 12:15 Uncollected LACTATE, PLASMA [CHEM] Q3H Lab 06/03/19 15:15 Uncollected PROTIME WITH INR [COAG] Stat Lab 06/03/19 09:23 Completed PTT [COAG] Stat Lab 06/03/19 09:23 Completed TROPONIN T HIGH SENSITIVITY Stat Lab 06/03/19 09:23 Completed URINALYSIS W/POSS RFLX CULT [URINALYSIS] Stat Lab 06/03/19 09:10 Uncollected Oxygen Device Stat Oth 06/03/19 09:10 Active EKG [EKG] Stat Ther 06/03/19 09:11 Draft Result Diagrams: 06/03/19 09:23 06/03/19 09:23 - EKG 1 Time of EKG reading by physician:: 09:09 EKG Read and Signed by:: Jose Box EKG Interpretation (*Must complete 3 of following elements*): Abnormal Rate: 95 Rhythm: nsr [place]: normal QRS: RBB AL Interval: normal ST Wave: normal Comments: possible left atrial enlargment - XRAY 1 XRAY: Bilateral XRAY Study: Chest Impression: See EMR Report (EXAM: CHEST-1 VIEW HISTORY: positive sepsis screen TECHNIQUE: Single view COMPARISON: 11/08/2018 FINDINGS: The lungs are well expanded. The heart is not enlarged. The vessels are not distended. There is a small right pleural effusion versus pleural thickening. Mild increased interstitial markings in the right base. IMPRESSION: Small right pleural effusion with basilar atelectasis and possibly a small underlying infiltrate. Electronically signed by Braydon Pierre 06/03/2019 9:32 AM 06/03/19 09 Interpreting Physician: Braydon Pierre MD Dictated Date/Time: 06/03/19930 cc: Jose Box MD; None,PCP) - CT/MRI 1 CT Study: Abdomen, Pelvis Impression: See EMR Report (XAM: CT ABD/PELVIS W/IV CONT ONLY 06/03/2019 HISTORY: abdo pain, distension TECHNIQUE: This exam was performed using automated exposure control, adjustment of mA or kV according to patient size, and/or use of iterative reconstruction technique. COMMENT: There are no previous studies available for comparison. There is atelectasis or fibrosis in the inferior right anterior middle lobe. There is ascites. The spleen is enlarged measuring almost 14.7 cm in AP dimension. The liver is also enlarged. The gallbladder is slightly distended but there are no apparent stones. The kidneys are without evidence of hydronephrosis masses or stones. The pancreas is unremarkable. There is some enlargement of the medial lobe of the left adrenal gland. This measures 15 mm in short axis. The aorta is partially calcified but not distended. The portal vein appears to be patent. There is no evidence of bowel obstruction. The appendix is normal in appearance. There is no evidence of significant adenopathy. Pelvis: There are scattered diverticula present in th e sigmoid colon without evidence of diverticulitis. The urinary bladder is not distended. There are calcifications in the prostate gland. There is a fat- containing right inguinal hernia. There is some gas phenomenon in the sacroiliac joints and the L5-S1 disc space. There are osteophytes at multiple lower thoracic and lumbar levels. No acute bony abnormalities are present. IMPRESSION: Cirrhosis with splenomegaly, and ascites. Left adrenal enlargement possibly due to an adenoma. Electronically signed by Wolfgang Carlisle 06/03/2019 11:51 AM 06/03/19 1151 Interpreting Physician: Wolfgang Carlisle MD Dictated Date/Time: 06/03/19 1146 cc: Jose Box MD; None,PCP) - CONSULTS/PCP/HOSPITALIST Notification #1 *Consult/PCP/Hospitalist*: hospitalist Time Discussed: 13:05 (spoke with E[place]) Consult Disposition: Will see in ED, Admit #2 Consult: GI Time Discussed: 13:24 Reason/Comments: phone consult Departure - Departure Date of Disposition Decision: 06/03/19 Time of Disposition Decision: 13:06 DIAGNOSIS: Jaundice, Cirrhosis of liver with ascites, Splenomegaly, Hyponatremia Disposition: ADMITTED INPATIENT 09 Certified Medical Emergency: Emergent Condition: Fair - Critical Care Note This patient required my direct & personal management of CC.: Yes Total Time (mins): 36 Critical Care Statement: This patient required my direct personal management to treat or rule out processes, the absence of which, could potentiallly result in sudden, clinically significant life or limb threatening deterioration. Attestation - Physician/ LAURI Attestation Patient care was provided by Advanced Practice Provider:: No The physician spent face to face time with patient:: Yes Advanced Practice Provider documentation review:: Supervising physician onsite and consulted in the evaluation and care of this patient. The physician did have a face to face encounter with the patient. This chart was documented by the indicated scribe, (Sandhya Saucedo Scribe) and accurately reflects the services I performed and decisions made by me, Jose Box MD, as attested by the provider's signature.
[2019-06-03 13:07] LABS: URINE CASTS GRANULAR PRESENT; URINE CRYSTALS NONE SEEN
[2019-06-03 13:36] LABS: BILIRUBIN URINE LARGE (NEGATIVE)
[2019-06-03] MEDS ORDERED: TYLENOL PO ONE (13:48)
[2019-06-03] MEDS ORDERED: ZOFRAN IV PRN (14:31)
--- NOTE | 2019-06-03 16:17 | HISTORY AND PHYSICAL ---
PRIMARY CARE PHYSICIAN: None. CHIEF COMPLAINT: Of abdominal pain, nausea, vomiting, diarrhea and abdominal distention over the past couple of days that has progressively worsened. He does state that he drinks a 12-pack of beer daily, has not drank that in about 3 days, but did drink a beer last night. HISTORY OF PRESENTING ILLNESS: This is a 64-year-old male who presents to [facility] with complaints of abdominal pain, abdominal distention, nausea, vomiting, and diarrhea. States he has had this for the last several days. That he drinks a 12-pack of beer daily up until about 3 to 4 days ago when he stopped, but then last night did drink 1 beer and I suspect was to help with withdrawals. Workup in the emergency room showed a total bilirubin of 26.80. His ammonia level unable to obtain an accurate result due to specimen being severely icteric and would not register. He is noted to be jaundiced to his entire body. Sodium was 131. He has abdominal distention. Bowel sounds are present. His abdomen and pelvic CT showed cirrhosis with splenomegaly and ascites and a left adrenal enlargement, possibly due to an adenoma. So, he will be admitted for further evaluation and treatment. PAST MEDICAL HISTORY: Hypertension, COPD, GERD, chronic pain, diabetes type 2. PAST SURGICAL HISTORY: Of a fasciotomy to the right arm after a snake bite and a right shoulder surgery. FAMILY HISTORY: Reviewed and noncontributory. SOCIAL HISTORY: He currently lives alone. Smokes a pack of cigarettes a day and has done so for 30+ years. Drinks a 12-pack of beer daily; none in the last 3 to 4 days, except for 1 beer last night and uses marijuana daily. ALLERGIES: He has no known drug allergies. HOME MEDICATIONS: He does not take any medications on a routine basis. LABORATORY DATA: Showed a white blood cell count of 8.60, hemoglobin 13.1, hematocrit 37, platelets 337,000. PT and INR of 15.8 and 1.24. Sodium 131, potassium 3.9, chloride 95, CO2 of 22, BUN of 6, creatinine 0.6, glucose 106, total bilirubin of 26.80, AST 133, ALT 43, alkaline phosphatase 283. Plasma lactate of 1.8. Urinalysis was negative. CT of the abdomen and pelvis showed cirrhosis with splenomegaly and ascites and a left adrenal enlargement, possibly due to an adenoma. Chest x-ray showed small right pleural effusion with basilar atelectasis and possibly a small underlying infiltrate. EKG showed normal sinus rhythm at 95. REVIEW OF SYSTEMS: He denied any fever, chills, blurred vision, dizziness, chest pain, coughing, shortness of breath. He does have abdominal pain, nausea, vomiting, diarrhea, abdominal distention, jaundice. Denies any burning or hurting with urination. PHYSICAL EXAMINATION: VITAL SIGNS: On arrival he had a temperature of 98.3 degrees, pulse 96, respirations 25, blood pressure 134/59, saturating 95% on room air. GENERAL: This is a 64-year-old male who is lying in the bed, jaundice in color, does answer questions appropriately. HEENT: Normocephalic, atraumatic. Normal ENT inspection. Oropharynx and nares are clear. Eyes with icterus of sclerae. Extraocular movements are intact. NECK: Normal inspection, normal range of motion. LUNGS: With some expiratory wheezes throughout lung shin. Equal lung expansion and chest wall movement. HEART: Regular rate and rhythm. No murmurs, rubs, or gallops. ABDOMEN: Mildly firm, distended. Bowel sounds are present x4 quadrants. MUSCULOSKELETAL: He had 5/5 strength. NEUROLOGICAL: The cranial nerves 2-12 appear grossly intact. ASSESSMENT: 1. Rule out spontaneous bacterial peritonitis. 2. Cirrhosis with hyperbilirubinemia. 3. Hyponatremia. 4. Tobacco abuse. 5. ETOH use and abuse. 6. Marijuana abuse. PLAN: He will be admitted to the medical unit and placed on telemetry. Clear liquid diet. We are going to consult GI. Lactulose 30 mL p.o. b.i.d. Normal saline at 50 mL an hour. We will give him Ativan 1 mg IV q.2 hours p.r.n. for alcohol withdrawal. We are going to do a ultrasound of the abdomen paracentesis. Place on SCDs for DVT prophylaxis. We will recheck a CBC, BMP, and an ammonia level. We will give him Rocephin 2 g IV q.24, first dose now. Further orders after seen by attending and by bi consultant. Dictated by MARYANN Palmer for Celso Peña MD cc: MARYANN Palmer Patient with left sided abdominal pain, nausea, and vomiting. on imaging he appears to have cirrhosis and ascities which has probably been present for awhile but has not been previously diagnosed. patient pretty stable but will treat for possible SBP until proven otherwise. will try to get a tap primarily for diagnostic purposes. patient strongly advised on alcohol cessation. he endorses drink 6 high gravity tall boys per day(roughly 24 regular beers). last drink 4-5 days ago so low risk for withdrawal at this point. [facility]
[2019-06-03] MEDS: LACTULOSE PO SCH ×2 (16:29→22:12)
[2019-06-03] MEDS: NS 1,000 ML IV SCH (16:30)
[2019-06-03] MEDS: ROCEPHIN 2 GM in NS 50 ML IV SCH (16:30)
[2019-06-03] MEDS: ATIVAN IV PRN (22:12)
[2019-06-04 05:25] LABS: BASO# 0.05 X1000 (0.0-0.2); BASO% 0.5 % (0.0-0.8); EOS# 0.13 X1000 (0.0-0.7); EOS% 1.3 % (0.0-10.0); HEMATOCRIT 35.2 % (42.0-52.0); HEMOGLOBIN 12.1 g/dL (14.0-18.0); IMM GRAN# 0.13 X1000 (0.0-0.04); IMM GRAN% 1.3 % (0.0-0.5); LYMPH# 0.84 X1000 (1.2-3.4); LYMPH% 8.1 % (20.5-51.1); MCH 32.4 PG (27-31); MCHC 34.4 g/dL (33-37); MCV 94.4 FL (81-99); MONO% 10.6 % (1.7-9.3); MPV 9.4 FL (7.4-10.4); NEUT# 8.08 X1000 (1.4-6.5); NEUT% 78.2 % (42.2-75.2); PLT 312 X1000 (130-400); RBC 3.73 XMIL (4.7-6.1); RDW 18.5 % (11.5-14.5); WBC 10.33 X1000 (4.8-10.8)
[2019-06-04 05:42] LABS: AGAP 10; BUN 7 mg/dL (8-22); CALCIUM 8.6 mg/dL (8.8-10.2); CHLORIDE 96 mmol/L (98-107); COSMO 262; CREATININE 0.7 mg/dL (0.7-1.2); ESTIMATED GFR > 60; GLUCOSE 94 mg/dL (70-104); POTASSIUM 3.2 mmol/L (3.5-5.1); SODIUM 132 mmol/L (136-145); TCO2 26 mmol/L (25-35)
[2019-06-04] MEDS: ATIVAN IV PRN ×2 (05:46→14:20)
[2019-06-04 09:06] LABS: ALB/GLOB RATIO 0.7; ALBUMIN 2.5 g/dL (3.5-5.0); ALKALINE PHOSPHATASE 275 U/L (32-122); DIRECT BILIRUBIN > 10.00 mg/dL (0.00-0.20); GOT 119 U/L (10-34); GPT 40 U/L (10-44); TOTAL BILIRUBIN 24.75 mg/dL (0.20-1.00); TOTAL PROTEIN 5.9 g/dL (6.3-8.3)
[2019-06-04] MEDS: LACTULOSE PO SCH (09:32)
[2019-06-04] MEDS: POTASSIUM CHLORIDE 20 MEQ/SWI 20 MEQ/100 ML IVPB IV SCH ×2 (09:34→15:45)
[2019-06-04] MEDS: NICODERM PATCH TD SCH (10:25)
[2019-06-04] MEDS: ROCEPHIN 2 GM in NS 50 ML IV SCH (14:12)
--- NOTE | 2019-06-04 14:25 | GASTROENTEROLOGY CONSULTATION ---
DATE: 06/04/2019 REASON FOR CONSULTATION: Cirrhosis and alcohol abuse. HISTORY OF PRESENT ILLNESS: Mr. Bland is a 64-year-old male. He presented to the hospital yesterday with abdominal pain, nausea, vomiting, diarrhea, feeling lightheaded, and dizzy. He mentions that this has been going on for the last several days. He drinks almost 12 pack of beer daily, and for the last 3 to 4 days onwards he has not had any. He had gained about 26 pounds over the last 2 months. +jaundice. The patient has a history of COPD, hypertension, diabetes type 2, osteoarthritis, and GERD. The patient complained of abdominal pain. He rated it as 7/10 and felt sore all over the abdomen. The patient's hemoglobin on admission was 13.1, and hematocrit was 37.0. Today it was 12.1 and 35.2. The patient's chest x-ray on admission showed small right pleural effusion with bibasilar atelectasis and possibly a small underlying infiltrate. His abdomen and pelvis CT has shown he has cirrhosis with splenomegaly and ascites, left adrenal enlargement possibly due to an adenoma. The patient's liver enzymes today are total bilirubin 24.75, AST is 119, ALT is 40, alkaline phosphatase is 275, and albumin is 2.5. The patient's ammonia is 33. PAST MEDICAL HISTORY: Hypertension, COPD, GERD, chronic pain, and type 2 diabetes. PAST SURGICAL HISTORY: The patient had a fasciotomy to the right arm after a snake bite and right shoulder surgery. FAMILY HISTORY: No significant GI malignancies. ALLERGIES: No known drug allergies. HOME MEDICATIONS: Patient has denied taking medications. SOCIAL HISTORY: The patient lives alone. He smokes half to 1 pack of cigarettes a day, and drinks at least 12 pack of beer almost every day. The patient also mentioned that he has marijuana almost every day. REVIEW OF SYSTEMS: As per HPI. Otherwise, 12 point review of system is negative. PHYSICAL EXAMINATION: Vital Signs: Temperature 98 degrees, pulse 88, respirations 15, blood 112/55, and oxygen saturation 98%. He is on 2 L nasal cannula. The patient's weight is 299 pounds. BMI is 45.6 kg/m2. General: Patient is morbidly obese, alert, and oriented x3. Answering questions appropriately and in no acute distress. HEENT: Pale conjunctivae. Sclerae icterus. PERRL. Neck: Supple. Wheezing heard in the anterior lobes. Cardiovascular: Patient has regular rate and rhythm. Abdomen: Distended. Firm and tender all over. Hypoactive bowel sounds heard in all 4 quadrants. Extremities: No clubbing. No cyanosis. Generalized edema in the lower extremities bilaterally. Neurologic: Alert and oriented x3. Nonfocal. Cranial nerves 2-12 grossly intact. LABORATORY DATA: WBCs are 10.33, RBCs 3.73, hemoglobin is 12.1, hematocrit is 35.2, and platelet count is 312,000. PT 15.8, INR is 1.24. Sodium 132, potassium 3.2, chloride 96, carbon dioxide 26. Anion gap 10, BUN 7, creatinine is 0.7, and glucose 94, calcium 8.6. Total bilirubin 24.75, AST 119, ALT is 40, alkaline phosphatase is 275, and albumin is 2.5. Urinalysis showed trace of protein and large amount of bilirubin. Abdomen and pelvis CT has shown cirrhosis with splenomegaly and ascites. Left adrenal enlargement, possibly due to an adenoma. IMPRESSION AND PLAN: - Decompensated ETOH cirrhosis - Ascites - Melena - Blood loss anemia - Tobacco abuse - Alcohol abuse - Hyponatremia - N/V - Marijuana abuse PLAN: Mr. Bland is a 64-year-old male with a history of alcohol abuse, tobacco abuse, and marijuana abuse. GI has been consulted for cirrhosis and alcohol abuse. Patient had an u/s guided paracentesis done, there was trace fluid tracking around the liver. Awaiting the results of the fluid study. We plan to do an EGD tomorrow. We have discussed the risks, benefits, and alternatives of the procedure to the patient. The patient acknowledges understanding of the plan of care. Further plan of care will be based on the EGD findings. This plan was discussed with Dr. Lakhani. Thank you for your kind consult. Please call us for any further questions or concerns. Dictated by MARYANN Edmondson for Ervin Lakhani MD Physician Attestation I have seen and examined the patient. I have discussed and reviewed the note by Angelqiue WOLF and agree with findings and plan as documented. In brief, Mr. Anibal Bland is a 64M with history of COPD, obesity, tobacco abuse, alcohol abuse who presents with newly decompensated ETOH cirrhosis with ascites and jaundice. He reports having some black stools recently but none in the last several days. Will plan diagnostic/therapeutic paracentesis to rule out SBP, then EGD . Counseled patient on substance abuse cessation. hepatitis panel pending. MTDD
--- NOTE | 2019-06-04 15:02 | Diag Imaging Result Doc PS360 ---
US ABD PARACENTESIS W S/I - 06/04/2019 INDICATION: not a huge amount of ascites but concern for SBP COMPARISON: None FINDINGS: Prior to the planned paracentesis, sonographic images of the abdomen or obtained. Only a trace amount of fluid can be identified tracking around the liver. It was felt that the volume of fluid is too small to safely access at this time. As such, the procedure was deferred. IMPRESSION: Trace fluid tracking around the liver. Please see above discussion. Electronically signed by Raffi Fletcher 06/04/2019 3:00 PM
[2019-06-04] MEDS: NS 1,000 ML IV SCH (16:21)
--- NOTE | 2019-06-04 16:46 | PROGRESS NOTE ---
DATE: 06/04/2019 INTERVAL HISTORY: Patient's abdominal pain is largely resolved. No further vomiting. Still has some mild nausea. No tremulousness, hallucinations, or other sign of alcohol withdrawal. REVIEW OF SYSTEMS: Twelve point review of systems negative except as per interval history. LABORATORY DATA: WBC 10.3. Hemoglobin 12.1, hematocrit 35.2, platelets 312,000. Sodium 132, potassium 3.2, bicarb 26, BUN 7, creatinine 0.7, total bilirubin 24.75, AST 19, ALT 40, alkaline phosphatase 275, ammonia 33, total protein 5.9. VITALS: Temperature maximum 98.7 degrees, pulse 88, respirations 15, blood pressure 112/55, O2 saturation 98% on room air via nasal cannula. PHYSICAL EXAMINATION: General: No acute distress. Vitals: As above. HEENT: Normocephalic, atraumatic. Marked scleral icterus noted. Cardiovascular: Regular rate and rhythm. No murmurs noted. Pulmonary: Clear to auscultation bilaterally. No wheezing, rales, or rhonchi. Abdomen: Mildly distended. Minimal left-sided tenderness much improved from previous. Bowel sounds positive. Extremities: Peripheral pulses intact. No clubbing or cyanosis. Trace to 1+ pitting edema bilaterally. Neurologic: Cranial nerves grossly intact. No focal deficits identified. Psychiatric: Normal mood and affect. Awake, alert, oriented x3. Skin: Significantly jaundiced. ASSESSMENT AND PLAN: 1. Possible spontaneous bacterial peritonitis. The patient with nausea, vomiting and abdominal pain. Tender on admission, but much improved now after antibiotics overnight. Trying to arrange a paracentesis to send down for studies to confirm or deny spontaneous bacterial peritonitis. 2. New diagnosis of cirrhosis, jaundice. The patient with markedly elevated bilirubin on admission, slightly improved today. Likely alcoholic cirrhosis given patient's history of significant alcohol use. Gastroenterology on board and planning on esophagogastroduodenoscopy likely later today. 3. Tobacco, marijuana, and alcohol abuse. The patient has been counseled on cessation. Patient was found using smokeless tobacco this morning. The patient counseled that we could not allow tobacco. He was offered nicotine patch, which he accepted. The patient does state that he is planning on quitting alcohol. Last drink approximately six days ago, so unlikely to have trouble with withdrawal at this point. 4. Hypokalemia. Will replete and monitor. 5. Hyponatremia, likely related to cirrhosis, pretty mild at this point. Will monitor but no need for acute intervention.
[2019-06-04] MEDS ORDERED: SODIUM CHLORIDE 0.9% INJ SCH (19:30)
[2019-06-04] MEDS: PROTONIX IV SCH (20:24)
[2019-06-05 05:49] LABS: BASO# 0.02 X1000 (0.0-0.2); BASO% 0.2 % (0.0-0.8); EOS% 1.1 % (0.0-10.0); HEMATOCRIT 33.9 % (42.0-52.0); HEMOGLOBIN 11.6 g/dL (14.0-18.0); IMM GRAN# 0.09 X1000 (0.0-0.04); LYMPH# 0.71 X1000 (1.2-3.4); LYMPH% 7.9 % (20.5-51.1); MCH 32.4 PG (27-31); MCHC 34.2 g/dL (33-37); MCV 94.7 FL (81-99); MONO# 0.77 X1000 (0.11-0.59); MONO% 8.5 % (1.7-9.3); MPV 9.4 FL (7.4-10.4); NEUT# 7.34 X1000 (1.4-6.5); NEUT% 81.3 % (42.2-75.2); PLT 298 X1000 (130-400); RBC 3.58 XMIL (4.7-6.1); RDW 18.1 % (11.5-14.5); WBC 9.03 X1000 (4.8-10.8)
[2019-06-05 06:35] LABS: AGAP 12; ALB/GLOB RATIO 0.5; ALBUMIN 2.1 g/dL (3.5-5.0); ALKALINE PHOSPHATASE 219 U/L (32-122); BUN 9 mg/dL (8-22); CALCIUM 8.6 mg/dL (8.8-10.2); CHLORIDE 94 mmol/L (98-107); COSMO 259; CREATININE 0.7 mg/dL (0.7-1.2); ESTIMATED GFR > 60; GLUCOSE 88 mg/dL (70-104); GOT 97 U/L (10-34); GPT 37 U/L (10-44); SODIUM 130 mmol/L (136-145); TCO2 24 mmol/L (25-35); TOTAL BILIRUBIN 22.24 mg/dL (0.20-1.00)
[2019-06-05] MEDS ORDERED: DIPRIVAN 1% ONE ×2 (09:48→10:25)
[2019-06-05] MEDS ORDERED: XYLOCAINE-MPF 2% ONE ×2 (09:49→10:25)
[2019-06-05] MEDS: DUONEB (A & A) INH SCH ×4 (11:38→23:26)
[2019-06-05] MEDS: ALDACTONE PO SCH (12:20)
[2019-06-05] MEDS: POTASSIUM CHLORIDE 20 MEQ/SWI 20 MEQ/100 ML IVPB IV SCH ×2 (12:20→15:33)
[2019-06-05] MEDS: PROTONIX IV SCH ×2 (12:23→20:38)
[2019-06-05] MEDS: NICODERM PATCH TD SCH (12:23)
--- NOTE | 2019-06-05 14:21 | PROGRESS NOTE ---
DATE: 06/05/2019 INTERVAL HISTORY: Patient went for EGD this morning but anesthesia did not want to give him conscious sedation. Patient with no shortness of breath, but is wheezing minimally this morning. They attempted paracentesis yesterday, but were unable to find enough to tap. The patient's abdomen appears to be primarily just marked central obesity rather than significant ascites. The patient's abdominal pain essentially resolved at this point. No acute events overnight. REVIEW OF SYSTEMS: Twelve point review of systems negative except as per interval history. LABS: WBC 9.0, hemoglobin 11.6, hematocrit 33.9, platelets 298,000. Sodium 130, potassium 3, bicarb 24, BUN 9, creatinine 0.7, bilirubin 22.24. VITAL SIGNS: T-max 98.5 degrees, pulse 82, respirations 20, blood pressure 125/65, O2 saturation 98% on 2 L by nasal cannula. PHYSICAL EXAMINATION: General: No acute distress. Vital signs: As above. HEENT: Normocephalic, atraumatic. Scleral icterus unchanged. Cardiovascular: Regular rate and rhythm. No murmurs noted. Pulmonary: Faint expiratory wheeze noted but good air entry. No accessory muscle use or increased work of breathing. Abdomen: Obese, soft, nontender. Bowel sounds positive. Extremities: Peripheral pulses intact. No clubbing or cyanosis. Neurologic: Cranial nerves grossly intact. No focal deficits identified. Psychiatric: Normal mood and affect. Awake, alert, oriented x3. Skin: Still significantly jaundiced. Well-healed surgical scar on right anterior forearm. ASSESSMENT AND PLAN: 1. Possible spontaneous bacterial peritonitis. Attempted to get paracentesis for diagnostic purposes yesterday but they were unable to find a pocket big enough to tap. The patient's symptoms are resolved but will likely have to finish a course of treatment for presumed SBP. 2. New diagnosis of cirrhosis, likely alcoholic. Patient an equivalent of 24 beers a day drinker. Markedly elevated bilirubin, but that appears to be trending down. GI was planning for EGD today but canceled by anesthesia because of wheezing and obesity. We will place him on some nebs and we will go ahead and start some spironolactone to see if some gentle diuresis and nebulizer treatments will resolve the wheezing. Hopefully, they can do his EGD tomorrow. At this point, anticipate discharge when GI finished with their workup and satisfied with the improvement in his bilirubin. Exact timing uncertain. 3. Tobacco, marijuana, and alcohol abuse. Patient counseled on cessation. Approximately 7 days out from his last drink, so low chance for withdrawal symptoms at this point. 4. Hypokalemia. Will replete and monitor. 5. Anemia. Likely related to cirrhosis. Mild. Monitor. 6. Hyponatremia. Also likely related to cirrhosis. Monitor.
[2019-06-05] MEDS: ROCEPHIN 2 GM in NS 50 ML IV SCH (18:28)
[2019-06-05] MEDS ORDERED: TYLENOL PO PRN (18:33)
[2019-06-05] MEDS ORDERED: NORCO-5 PO PRN (18:33)
[2019-06-05] MEDS: ATIVAN IV PRN (20:39)
[2019-06-06] MEDS: DUONEB (A & A) INH SCH ×6 (02:59→23:16)
[2019-06-06 05:39] LABS: BASO# 0.03 X1000 (0.0-0.2); BASO% 0.4 % (0.0-0.8); EOS# 0.16 X1000 (0.0-0.7); HEMATOCRIT 32.3 % (42.0-52.0); HEMOGLOBIN 10.9 g/dL (14.0-18.0); IMM GRAN# 0.08 X1000 (0.0-0.04); LYMPH# 0.78 X1000 (1.2-3.4); LYMPH% 9.9 % (20.5-51.1); MCH 32.1 PG (27-31); MCHC 33.7 g/dL (33-37); MONO# 0.68 X1000 (0.11-0.59); MONO% 8.6 % (1.7-9.3); MPV 9.4 FL (7.4-10.4); NEUT# 6.15 X1000 (1.4-6.5); NEUT% 78.1 % (42.2-75.2); PLT 304 X1000 (130-400); RDW 18.1 % (11.5-14.5); WBC 7.88 X1000 (4.8-10.8)
[2019-06-06 06:30] LABS: AGAP 10; ALB/GLOB RATIO 0.5; ALBUMIN 2.2 g/dL (3.5-5.0); ALKALINE PHOSPHATASE 214 U/L (32-122); BUN 12 mg/dL (8-22); CALCIUM 8.5 mg/dL (8.8-10.2); CHLORIDE 94 mmol/L (98-107); COSMO 261; CREATININE 0.7 mg/dL (0.7-1.2); ESTIMATED GFR > 60; GLUCOSE 108 mg/dL (70-104); GOT 90 U/L (10-34); GPT 35 U/L (10-44); SODIUM 130 mmol/L (136-145); TCO2 26 mmol/L (25-35); TOTAL PROTEIN 6.3 g/dL (6.3-8.3)
[2019-06-06] MEDS ORDERED: DIPRIVAN 1% ONE (07:21)
[2019-06-06] MEDS ORDERED: FENTANYL ONE (08:24)
--- NOTE | 2019-06-06 08:40 | ENDOSCOPY OPERATIVE NOTE ---
[facility] ENDOSCOPY OPERATIVE NOTE , EGD PROCEDURE REPORT EXAM DATE: 06/06/2019 PATIENT NAME: Anibal Bland MR#: [id number] BIRTHDATE: 1955 ATTENDING: Ervin Lakhani MD STATUS: inpatient PLATE CUTTER: INDICATIONS: The patient is a 64 yr old male here for an EGD due to melena and decompensated cirrhos is r/o UGIB. PROCEDURE PERFORMED: EGD w/ biopsy MEDICATIONS: Per Anesthesia ESTIMATED BLOOD LOSS: None CONSENT: The patient understands the risks and benefits of the procedure and understands that these r isks include, but are not limited to: sedation, allergic reaction, infection, perforation and/or bleeding. Alternative means of evaluation and treatment include, among others: physical exam, x-rays, and/or surgical intervention. The patient elects to proceed with this endoscopic procedure. DESCRIPTION OF PROCEDURE: During pre-op preparation period all mechanical and medical equipment was c hecked for proper function. Hand hygiene and appropriate measures for infection prevention was taken. After the risks, benefits and alternatives of the procedure were thoroughly explained, Informed consent was verified, confirmed and timeout was successfully executed by the treatment team. The patient was anesthetized with topical anesthesia and the [id number] ([id number]) endoscope was introduced through the mouth and advanced to the second portion of the duoden um. Retroflexion was performed in the stomach and revealed a hiatal hernia. The gastroscope was then slowly withdrawn and removed. The patient's toleration of the procedure was good. ESOPHAGUS: The mucosa of the esophagus appeared normal. No esophageal varices. The z-line was noted at 45cm from the incisors. The z-line appeared normal. STOMACH: Mild gastritis (inflammation) was found in the gastric antrum. A biopsy was performed using cold forceps. Sample sent for histology. Mild portal hypertensive gastropathy was found. No gastric varices DUODENUM: The duodenum was normal. ADVERSE EVENTS: There were no complications. IMPRESSIONS: 1. The mucosa of the esophagus appeared normal 2. The z-line was noted at 45cm from the incisors 3. Gastritis (inflammation) was found in the gastric antrum; biopsy was performed 4. Portal hypertensive gastropathy was found 5. The duodenum was normal RECOMMENDATIONS: 1. Await biopsy results 2. Transition pantoprazole to PO once daily 3. Avoid NSAIDs 4. Recommend outpatient colonoscopy 5. Diabetic diet REPEAT EXAM: Return in 3 years for EGD. Ervin Lakhani MD eSigned: Ervin Lakhani MD 06/06/2019 8:40 AM CC: CPT CODES: [id number] Upper gastrointestinal endoscopy including esophagus, stomach, and either the du odenum and/or jejunum as appropriate; with biopsy, single or multiple ICD CODES: 578.1 Blood in stool 553.3 Diaphragmatic hernia without mention of obstruction or gangrene 535.50 Unspecified gastritis and gastroduodenitis (without hemorrhage) 537.89 Other specified disorders of stomach and duodenum 572.3 Portal hypertension The ICD and CPT codes recommended by this software are interpretations from the data that the [facility] staff has captured with the software. The verification of the translation of this report to the ICD and CPT co angi and modifiers is the sole responsibility of the health care institution and practicing physician where this report was generated. [employer] will not be held responsible for the validity of the ICD and CPT codes i ncluded on this report. A assumes no liability for data contained or not contained herein. CPT is a registered tra demark of the [employer]. PATIENT NAME: Anibal Bland MR#: [id number]
[2019-06-06] MEDS ORDERED: ALDACTONE PO SCH (09:00)
[2019-06-06] MEDS ORDERED: KLOR-CON POWDER PACKET PO ONE (09:48)
[2019-06-06] MEDS: NICODERM PATCH TD SCH (10:41)
[2019-06-06] MEDS: ALDACTONE PO SCH (10:41)
[2019-06-06] MEDS: PROTONIX PO SCH (10:41)
[2019-06-06] MEDS: ROCEPHIN 2 GM in NS 50 ML IV SCH (13:48)
--- NOTE | 2019-06-06 19:58 | PROGRESS NOTE ---
DATE: 06/06/2019 INTERVAL HISTORY: Patient with some chronic back pain, but abdominal pain resolved. No further nausea, vomiting or diarrhea. Status post EGD this morning showing gastritis and portal hypertensive gastropathy but no esophageal or gastric varices. There was no bleeding. Bilirubin remains markedly elevated but trending down slowly. No acute events. No new complaints. Previously noted wheezing improved. REVIEW OF SYSTEMS: Twelve-point review of systems negative except as per interval history. LABORATORY DATA: WBC 7.8, hemoglobin 10.9, hematocrit 32.3, platelets 304,000. Sodium 130, potassium 3, BUN 12, creatinine 0.7, bilirubin 19.3. VITALS: T-max 98.1 degrees, pulse 85, respirations 16, blood pressure 121/58, O2 saturation 94% on room air. PHYSICAL EXAMINATION: General: No acute distress. Vitals: As above. HEENT: Normocephalic, atraumatic. Moist mucous membranes. No cervical adenopathy. Scleral icterus stable. Cardiovascular: Regular rate and rhythm. No murmurs noted. Pulmonary: Still with mild to moderately decreased breath sounds throughout but no further wheezing. Abdomen: Obese, soft, nontender. Bowel sounds positive. Extremities: Peripheral pulses intact. No clubbing or cyanosis. Trace lower extremity edema bilaterally. Neurologic: Cranial nerves grossly intact. No focal deficits identified. Psychiatric: Normal mood and affect. Awake, alert and oriented x3. Skin: Significant jaundice stable. Well-healed surgical scar on right anterior forearm stable. ASSESSMENT AND PLAN: 1. Possible spontaneous bacterial peritonitis. The patient admitted with abdominal pain, nausea, vomiting, tachycardia in the setting of previous undiagnosed cirrhosis and some ascites. Attempted to get paracentesis for diagnostic purposes, but radiologist unable find a pocket of fluid big enough to tap. The patient's symptoms have now resolved so likely we will have to finish course of empiric antibiotics on Rocephin currently. Once cleared by GI may be able to go home on oral Omnicef. 2. Cirrhosis, likely alcoholic. This is a new diagnosis for the patient. Patient with an equivalent of 24 beers a day drinking habit. Markedly elevated bilirubin, but does appear to be trending down slowly. Has not had any hepatic encephalopathy. Status post EGD this morning showing gastritis but no esophageal varices. Awaiting final GI recommendations. 3. Tobacco, marijuana, and alcohol abuse. Patient counseled on cessation especially for alcohol. Approximately 8 days since his last drink, so likely outside the window for withdrawal at this point. 4. Hypokalemia, still low. Will further replete and monitor. 5. Anemia, likely related to cirrhosis, mild and stable. Monitor. 6. Hyponatremia also likely related to cirrhosis and stable. Monitor. 7. Likely chronic obstructive pulmonary disease. Patient with no previous formal diagnosis of chronic obstructive pulmonary disease but long smoking history and some wheezing yesterday. Seems to have improved with nebulizers and spironolactone. Possible that he has a previous diagnosis that he does not recall as he does have an albuterol inhaler at home. We will need new prescriptions for nebulizer solution and inhaler on discharge.
[2019-06-06] MEDS: ATIVAN IV PRN (20:31)
[2019-06-07] MEDS: DUONEB (A & A) INH SCH (02:38)
[2019-06-07 07:21] LABS: BASO# 0.03 X1000 (0.0-0.2); BASO% 0.4 % (0.0-0.8); EOS# 0.15 X1000 (0.0-0.7); EOS% 1.9 % (0.0-10.0); HEMATOCRIT 31.8 % (42.0-52.0); HEMOGLOBIN 10.5 g/dL (14.0-18.0); IMM GRAN# 0.08 X1000 (0.0-0.04); LYMPH# 0.84 X1000 (1.2-3.4); LYMPH% 10.6 % (20.5-51.1); MCH 31.8 PG (27-31); MCV 96.4 FL (81-99); MONO# 0.87 X1000 (0.11-0.59); MPV 9.6 FL (7.4-10.4); NEUT# 5.96 X1000 (1.4-6.5); NEUT% 75.1 % (42.2-75.2); PLT 282 X1000 (130-400); RDW 18.2 % (11.5-14.5); WBC 7.93 X1000 (4.8-10.8)
[2019-06-07 07:45] LABS: AGAP 11; ALB/GLOB RATIO 0.6; ALBUMIN 2.4 g/dL (3.5-5.0); ALKALINE PHOSPHATASE 212 U/L (32-122); BUN 10 mg/dL (8-22); CALCIUM 8.3 mg/dL (8.8-10.2); CHLORIDE 95 mmol/L (98-107); COSMO 267; CREATININE 0.7 mg/dL (0.7-1.2); ESTIMATED GFR > 60; GLUCOSE 126 mg/dL (70-104); GOT 113 U/L (10-34); GPT 37 U/L (10-44); POTASSIUM 3.4 mmol/L (3.5-5.1); SODIUM 133 mmol/L (136-145); TCO2 27 mmol/L (25-35); TOTAL BILIRUBIN 16.13 mg/dL (0.20-1.00); TOTAL PROTEIN 6.5 g/dL (6.3-8.3)
[2019-06-07 08:11] VITALS: BP 108/59
[2019-06-07] MEDS ORDERED: KLOR-CON PO SCH (08:30)
[2019-06-07] MEDS ORDERED: LASIX PO SCH (09:00)
[2019-06-07] MEDS ORDERED: DULCOLAX PR ONE (09:51)
[2019-06-07] MEDS ORDERED: MIRALAX PO SCH (10:00)
[2019-06-07] MEDS: NICODERM PATCH TD SCH (10:15)
[2019-06-07] MEDS: ALDACTONE PO SCH (10:15)
[2019-06-07] MEDS: PROTONIX PO SCH (10:15)
--- NOTE | 2019-06-07 21:20 | DISCHARGE SUMMARY ---
ADMISSION DATE: 06/03/2019 DISCHARGE DATE: 06/07/2019 DISCHARGE DISPOSITION: Home. DISCHARGE CONDITION: Hemodynamically stable. He is alert and oriented x3. He is tolerating diet well. He denies any nausea, vomiting. His abdominal pain has improved. He is getting stool softeners to help him have a bowel movement. He was advised about alcoholic liver cirrhosis, quitting tobacco, as well as alcohol, following up with GI doctor within 1 week, getting a repeat blood test done within 5 to 7 days. DISCHARGE DIAGNOSES: 1. Decompensated alcoholic cirrhosis, new diagnosis. 2. Suspected spontaneous bacterial peritonitis. 3. Hyponatremia, likely due to liver cirrhosis. 4. Hypokalemia. 5. Normocytic anemia. 6. Constipation. 7. Portal hypertensive gastropathy. 8. Hyperbilirubinemia due to cirrhosis. OTHER DIAGNOSES: 1. Active tobacco abuse. 2. Active alcohol abuse. 3. Chronic obstructive pulmonary disease (COPD). 4. Chronic gastroesophageal reflux disease (GERD). 5. Chronic back pain. 6. Essential hypertension. Comprehensive metabolic panel to be done within 5 days after discharge. DISCHARGE MEDICATIONS: 1. Spironolactone 25 mg daily. 2. Cefuroxime 500 mg every 12 hours for 12 doses. 3. Albuterol ipratropium nebulization every 4 hours as needed for shortness of breath. 4. Lasix 40 mg daily. 5. MiraLAX 17 g b.i.d. 6. Nicotine patch 21 mg daily for 14 patches. 7. Pantoprazole 40 mg daily. VITALS: At the time of discharge: Temperature 98.2 degrees, pulse 72, respiratory rate 20, blood pressure 108/59, saturating 95% on room air. PHYSICAL EXAMINATION: Not in any acute distress. Oral cavity is moist. Marked scleral icterus. Air entry bilaterally equal. No wheeze or rhonchi. Mild crackles in infrascapular region. S1, S2 normal, regular. No murmur or gallop. The abdomen is soft, distended, tympanic to percussion in the center of the abdomen and dullness over the flank region. Mild generalized tenderness. Active bowel sounds. Bilateral lower extremity edema extending up to knee. No asterixis. He is alert and oriented x3. LABORATORIES AT THE TIME OF DISCHARGE: Hemoglobin 10.5, WBC 7.9, platelets 282,000. INR 1.2, potassium 3.4, sodium 133, BUN 10, creatinine 0.7, bilirubin 16, iron phosphatase 212, AST 113, ALT 37. MICROBIOLOGY: Blood culture did not have any growth. SIGNIFICANT IMAGING DURING HOSPITAL ADMISSION: Chest x-ray on presentation had small right pleural effusion and basilar infiltrate. Abdomen and pelvis CT had cirrhosis with splenomegaly, ascites, left adrenal enlargement due to likely adenoma, however paracentesis attempted on June 04 could not be performed as there was only trace fluid tracking around the liver without any drainable pocket. PROCEDURES DURING HOSPITAL ADMISSION: The patient underwent endoscopy, upper EGD on 06/06/2019 which detected gastritis in the gastric antrum. The biopsy was performed, portal hypertensive gastropathy and he was recommended to be on pantoprazole daily. HOSPITAL COURSE SUMMARY: Mr. Bland is a 64-year-old man who initially presented on 06/03/2018 with chief complaints of nausea, vomiting, abdominal pain, abdominal distention, since 2 to 3 days of presentation which was progressively getting worse. He was an active alcohol drinker with about 12 pack of beer daily and daily smoking. In the emergency room, he was found to have elevated bilirubin with total bilirubin of 26 and direct bilirubin of more than 10. He also had marked icterus and CT scan of the abdomen and pelvis had detected cirrhosis with splenomegaly and ascites, so he was admitted for further management and treatment. There was a suspicion of spontaneous bacterial peritonitis considering his nausea, vomiting, abdominal pain, and ascites on finding, and he was started on intravenous antibiotics. Blood culture did not show any growth and he improved with intravenous antibiotics so it was deemed appropriate to discharge him on oral antibiotics. Paracentesis could not be performed as the ascitic fluid was less in amount. Regarding his new diagnosis of cirrhosis, it was thought to be related to his alcohol abuse and alcoholic cirrhosis leading to decompensation. He did undergo EGD which had portal hypertensive gastropathy without any esophageal varices or active bleeding. He was discharged on oral pantoprazole to have outpatient follow up with GI. At the time of discharge, he was provided a prescription of stool softeners and diuretics for his decompensated liver cirrhosis and advised to have a GI followup. More than 30 minutes of time was spent in discharging this patient. Plan of care was extensively discussed with him. He was counseled about smoking and alcohol cessation, his diagnosis of cirrhosis, need for outpatient blood tests, and all of his questions were satisfactorily answered. cc: Gato Garcia MD
== END 2019-06-07 12:59 | disposition home or self-care (01) | DRG 432 ==
LOC: ED 08:58 → SUATTDRO 13:58 → EDIPHOLD 13:58 → 1N 18:03
PROVIDERS: ATTEND Internal Medicine
PROC: MS.CXOR (2019-06-05 12:15)

== ENCOUNTER 2019-06-10 15:44 | Inpatient (IN) ==
[2019-06-10] MEDS ORDERED: TORADOL IV ONE (17:00)
[2019-06-10] MEDS ORDERED: NS 500 ML IV ONE (17:00)
--- NOTE | 2019-06-10 17:23 | PROVIDER DOCUMENTATION ---
HPI-Abdominal Pain/GI Problem - General Chief Complaint: Abdominal Pain Stated Complaint: NAUSEA/ STOMACH PAIN Time Seen by Provider: 06/10/19 16:06 Source: patient Allergies/Adverse Reactions: Patient Allergies Allergy/AdvReac Type Severity Reaction Status Date / Time No Known Allergies Allergy Verified 06/10/19 20:13 Home Medications: Home Medication List Medication Instructions Recorded Confirmed Last Taken Type Albuterol 2.5MG/Ipratrop 0.5MG 3 ml INH RTQ4H #30 neb 06/07/19 06/10/19 06/09/19 Rx [Duoneb (A & A)] Cefuroxime Axetil [Cefuroxime] 500 mg PO Q12H #12 tab 06/07/19 06/10/19 06/10/19 08:00 Rx Furosemide [Lasix] 40 mg PO DAILY #30 tab 06/07/19 06/10/19 06/10/19 08:00 Rx Pantoprazole [Protonix] 40 mg PO DAILY #30 tab 06/07/19 06/10/19 06/10/19 08:00 Rx Polyethylene Glycol 3350 [Miralax] 17 gm PO BID #10 powd.pack 06/07/19 06/10/19 06/10/19 08:00 Rx Spironolactone [Aldactone] 25 mg PO DAILY #30 tab 06/07/19 06/10/19 06/10/19 08:00 Rx - History of Present Illness-ABD Nature of Presenting Problems: 64 yr old M, with new hx of alcoholic cirrhosis, presents with about 48 hrs of nausea, abdominal soreness, decreased bowel movements; pt was recently admitted last week , and discharged, with dx of cirrhosis, concern for SBP. No tap done while he was inpatient; due to minimal amount of ascites; pt did receive IV antibiotics; pt was d/c'ed with medication, and for the past few days has had abdominal pain and swelling, nausea, and noted return of his jaundice. Abdominal Pain Onset Location: reports: RUQ, [facility] Quality of Pain: reports: aching Severity in ED: reports: moderate Onset/Duration: reports: 2 days ago Timing: reports: still present Activities at Onset: reports: none Exposure to sick contacts?: No Modifying Factors: improves with: nothing Associated Symptoms: reports: nausea Last BM: this morning Bruising or Bleeding Gums?: No Similar Symptoms Previously?: No Recently seen or treated by another doctor?: No Review of Systems - Adult - REVIEW OF SYSTEMS - ADULT Constitutional: reports: no symptoms reported Eyes: reports: no symptoms reported Ears, Nose, Mouth & Throat: reports: no symptoms reported Cardiovascular: reports: no symptoms reported Respiratory: reports: no symptoms reported Gastrointestinal: reports: see HPI Genitourinary: reports: no symptoms reported Musculoskeletal: reports: no symptoms reported Integumentary: reports: see HPI Neurological: reports: no symptoms reported Past History - Adult - PAST MEDICAL HISTORY-ADULT Review of Records: reports: Old Records Reviewed, Nursing Assessment Review Major Childhood Illnesses: reports: denies history Cardiovascular: reports: HTN Respiratory: reports: COPD Gastrointestinal: reports: GERD Obstetrical/Gynecological: reports: denies history Genitourinary: reports: denies history Musculoskeletal: reports: arthritis, chronic pain Neurological: reports: other (chronic lower back pain and neuropathy of LE's) Psychiatric: reports: denies history Endocrine/Immune: reports: Diabetes Other Conditions: reports: denies history - PRIOR SURGERIES/PROCEDURES Surgical/Procedure History: reports: reviewed, not pertinent, orthopedic (extremity) (fasciotomy to the right arm after a snake bite) - PRIOR HOSPITALIZATIONS Prior Hospitalizations: reports: none - IMMUNIZATION STATUS Childhood Immunizations: See Nurse Assessment Flu Vaccine: See Nurse Assessment - FAMILY HISTORY Family History: reviewed, not pertinent - SOCIAL HISTORY Substance Use: none presently/history of abuse Physical Exam-General - PHYSICAL EXAM-ADULT Initial Vital Signs Reviewed: Yes - CONSTITUTIONAL General Appearance: alert, no apparent distress - EYES Eyes: scleral icterus - HEAD, EARS, NOSE, MOUTH & THROAT HENMT: normocephalic/atraumatic, moist mucous membranes - RESPIRATORY Respiratory: chest non-tender, lungs clear, normal breath sounds - CARDIOVASCULAR Cardiovascular: regular rate, rhythm - GASTROINTESTINAL (ABDOMEN) Abdominal Exam: tenderness (bowel sounds hypoactive, generalized tenderness) - MUSCULOSKELETAL Extremity: no calf tenderness - SKIN Integumentary: jaundice (significant jaundice) - NEUROLOGIC Neurologic: no motor/sensory deficits - PSYCHIATRIC Psych/Mental Status: normal mood/affect, oriented x 3 Progress - PLAN OF CARE/RESULTS Progress/Plan/Lab Results: Vital Signs - 8 hr 06/10/19 16:30 Temperature 100 F H Pulse Rate 87 Respiratory Rate 23 Blood Pressure 151/70 O2 Sat by Pulse Oximetry 99 Orders Category Date Time Status CT ABDOMEN/PELVIS W/O CONTRAST [CT] Stat Exams 06/10/19 17:00 Ordered US ABDOMEN-COMPLETE [US] Stat Exams 06/10/19 17:01 Ordered AMMONIA [CHEM] Stat Lab 06/10/19 17:02 Uncollected CBC WITH ELECTRONIC DIFF [HEME] Stat Lab 06/10/19 17:00 Uncollected COMPREHENSIVE METABOLIC PANEL [CHEM] Stat Lab 06/10/19 17:00 Uncollected 0.9% Sodium Chloride Inj [Ns] 500 ml Med 06/10/19 17:00 Active IV 999 mls/hr Ketorolac [Toradol] Med 06/10/19 17:00 Discontinued 30 mg IV NOW ONE Pt presented with a mild temp - labs show elevated bilirubin, only trace ascites, but given the mild temp, I am concerned about SBP; I believe there was a suspicion for it during his most recent admission, and he received treatment, but given the level of jaundice and still abnormal LFTs, coupled with initial vitals, I feel the pt may need inaptient evaluation; spoke with the hospitalist who agrees to admit for management. Result Diagrams: 06/10/19 18:54 06/10/19 18:54 - CONSULTS/PCP/HOSPITALIST Notification #1 *Consult/PCP/Hospitalist*: Dr. Oconnor Time Discussed: 19:00 Consult Disposition: Admit Departure - Departure Date of Disposition Decision: 06/10/19 Time of Disposition Decision: 21:07 DIAGNOSIS: Jaundice Cirrhosis of liver with ascites Qualifiers: Hepatic cirrhosis type: alcoholic cirrhosis Qualified Code(s): K70.31 - Alcoholic cirrhosis of liver with ascites Disposition: ADMITTED INPATIENT 09 Certified Medical Emergency: Emergent Condition: Stable - Critical Care Note This patient required my direct & personal management of CC.: Yes Attestation - Physician/ LAURI Attestation Patient care was provided by Advanced Practice Provider:: No The physician spent face to face time with patient:: Yes Advanced Practice Provider documentation review:: Supervising physician onsite and consulted in the evaluation and care of this patient. The physician did have a face to face encounter with the patient.
--- NOTE | 2019-06-10 18:16 | Diag Imaging Result Doc PS360 ---
US ABDOMEN-COMPLETE - 06/10/2019 INDICATION: abdominal pain and swelling, concern for ascites COMPARISON: CT from earlier today FINDINGS: There is no significant ascites. The patient is very obese. The pancreas is obscured. There is splenomegaly. The spleen measures 16.7 x 16 x 8.7 cm. There is mild diffuse fatty change of the liver. No liver masses. No biliary dilation. Common bile duct measures 11 mm. The gallbladder and both kidneys are normal. Aorta, IVC, and main portal vein are patent. IMPRESSION: No ascites. Mild fatty liver. Splenomegaly. Electronically signed by Marc Dodson 06/10/2019 6:13 PM
--- NOTE | 2019-06-10 18:40 | Diag Imaging Result Doc PS360 ---
CT ABDOMEN/PELVIS W/O CONTRAST - 06/10/2019 INDICATION: abd pain, acute swelling COMPARISON: 06/03/2019 FINDINGS: The lung bases are clear and the heart size is normal. There is trace ascites. The patient is very obese. There is no change in the abdominal swelling. IMPRESSION: No change from prior. This exam was performed using automated exposure control, adjustment of mA or kV according to patient size, and/or use of iterative reconstruction technique Electronically signed by Marc Dodson 06/10/2019 6:38 PM
[2019-06-10 18:48] LABS: URINE SOURCE CLEAN CATCH
[2019-06-10 19:04] LABS: BILIRUBIN URINE LARGE (NEGATIVE); BLOOD URINE NEGATIVE (NEGATIVE); COLOR YELLOW; GLUCOSE URINE NEGATIVE (NEGATIVE); KETONE URINE NEGATIVE (NEGATIVE); LEUKOCYTES URINE NEGATIVE (NEGATIVE); NITRITE URINE NEGATIVE (NEGATIVE); PH URINE 6.5; PROTEIN URINE TRACE mg/dL (NEGATIVE); SP GRAVITY URINE 1.016; TURBIDITY URINE CLEAR (CLEAR); UROBILINOGEN URINE 8 mg/dL (NORMAL)
[2019-06-10 19:07] LABS: UR EPITHELIAL CELLS <10 /HPF (<10); URINE BACTERIA NEGATIVE /HPF; URINE RBC TNTC /HPF (<10); URINE WBC <10 /HPF (<10)
[2019-06-10 19:10] LABS: BASO# 0.03 X1000 (0.0-0.2); BASO% 0.3 % (0.0-0.8); EOS# 0.06 X1000 (0.0-0.7); EOS% 0.6 % (0.0-10.0); HEMATOCRIT 30.9 % (42.0-52.0); HEMOGLOBIN 10.4 g/dL (14.0-18.0); IMM GRAN# 0.12 X1000 (0.0-0.04); IMM GRAN% 1.2 % (0.0-0.5); LYMPH# 0.81 X1000 (1.2-3.4); LYMPH% 7.8 % (20.5-51.1); MCH 32.3 PG (27-31); MCHC 33.7 g/dL (33-37); MONO# 0.92 X1000 (0.11-0.59); MONO% 8.8 % (1.7-9.3); MPV 9.4 FL (7.4-10.4); NEUT# 8.47 X1000 (1.4-6.5); NEUT% 81.3 % (42.2-75.2); PLT 296 X1000 (130-400); RBC 3.22 XMIL (4.7-6.1); RDW 17.5 % (11.5-14.5); WBC 10.41 X1000 (4.8-10.8)
[2019-06-10 19:21] LABS: UR AMPHETAMINES QUAL NONE DETECTED (NONE DETECT); UR BARBITUATES QUAL NONE DETECTED (NONE DETECT); UR BENZODIAZEPIN QUAL NONE DETECTED (NONE DETECT); UR CANNABINOIDS QUAL PRESUMPTIVE POSITIVE (NONE DETECT); UR COCAINE QUAL NONE DETECTED (NONE DETECT); UR METHADONE QUAL NONE DETECTED (NONE DETECT); UR OPIATES QUAL NONE DETECTED (NONE DETECT); UR OXYCODONE QUAL NONE DETECTED (NONE DETECT); UR PCP QUAL NONE DETECTED (NONE DETECT)
[2019-06-10 19:33] LABS: AGAP 12; ALB/GLOB RATIO 0.6; ALBUMIN 2.5 g/dL (3.5-5.0); ALKALINE PHOSPHATASE 262 U/L (32-122); BUN 13 mg/dL (8-22); CALCIUM 8.6 mg/dL (8.8-10.2); CHLORIDE 90 mmol/L (98-107); COSMO 263; CREATININE 0.6 mg/dL (0.7-1.2); ESTIMATED GFR > 60; GLUCOSE 110 mg/dL (70-104); GOT 149 U/L (10-34); GPT 55 U/L (10-44); POTASSIUM 3.5 mmol/L (3.5-5.1); SODIUM 131 mmol/L (136-145); TCO2 29 mmol/L (25-35); TOTAL BILIRUBIN 14.48 mg/dL (0.20-1.00); TOTAL PROTEIN 6.5 g/dL (6.3-8.3)
[2019-06-10] MEDS ORDERED: FLOMAX PO ONE (22:28)
[2019-06-10] MEDS ORDERED: SALINE LOCK IV FLUID XX ONE (22:56)
[2019-06-10 23:18] LABS: INR 1.24; PROTIME 15.8 Seconds (11.0-16.0); PTT 41.9 Seconds (22.3-41.8)
[2019-06-10] MEDS: DUONEB (A & A) INH SCH (23:49)
[2019-06-11] MEDS: DUONEB (A & A) INH SCH ×6 (03:30→23:50)
[2019-06-11] MEDS ORDERED: NICODERM PATCH TD PRN (06:12)
[2019-06-11] MEDS ORDERED: ROCEPHIN 2 GM in NS 50 ML IV SCH (06:15)
[2019-06-11] MEDS: PRILOSEC PO SCH (06:24)
[2019-06-11] MEDS: ROCEPHIN 2 GM in NS 50 ML IV SCH (06:56)
[2019-06-11] MEDS: OXY IR PO PRN (06:56)
[2019-06-11] MEDS: HUMALOG SUBQ SCH ×4 (07:29→20:50)
--- NOTE | 2019-06-11 08:40 | HISTORY AND PHYSICAL ---
HISTORY OF PRESENT ILLNESS: Mr. Anibal Bland is a 64-year-old male who has alcoholic cirrhosis, COPD, borderline diabetes, obesity. The patient was recently discharged from the hospital on 06/07/2019. During his previous admission, he was managed for decompensated alcoholic cirrhosis, suspected spontaneous bacterial peritonitis, hyponatremia, hypokalemia, portal hypertensive gastropathy, as well as hyperbilirubinemia. The patient now presents to the hospital because of abdominal pain localized to the left side of the abdomen with abdominal distention. He describes nausea as well as constipation. No hematemesis or rectal bleed. The patient also describes worsening jaundice. No pruritus. The patient was seen and evaluated in the ER. Abdominal ultrasound showed no evidence of ascites. His liver function test showed AST of 149, ALT of 55, alkaline phosphatase of 262, with a total bilirubin of 14.48. The patient has now been admitted to the floor now for further management. PAST MEDICAL HISTORY: Hypertension, COPD, gastroesophageal reflux disease, chronic pain, type 2 diabetes mellitus, and also liver cirrhosis. SOCIAL HISTORY: The patient quit drinking alcohol about 2 weeks ago. Also quit smoking about 2 weeks ago and uses marijuana. ALLERGIES: No known drug allergies. FAMILY HISTORY: Positive for cancer. PAST SURGICAL HISTORY: He has had surgery on his right forearm following a snake bite. MEDICATIONS: Discharge medications from last hospital stay, spironolactone 25 mg p.o. daily, cephalexin 500 mg p.o. every 12 hours, albuterol ipratropium nebulizer every 4 hours, Lasix 40 mg daily, MiraLAX 17 g p.o. twice a day, a nicotine patch, as well as pantoprazole 40 mg p.o. daily. REVIEW OF SYSTEMS: Constitutional: No fever. REAMER HAND: No headaches. Eyes: No blurred vision. ENT: No sinus problems. Cardiovascular: No chest pain. Respiratory: No cough. : Has dysuria. Dermatology: No skin lesions. Musculoskeletal: No joint pains. Hematology: No bleeding problems. Endocrinology: Has diabetes. No thyroid disease. Psychiatric: No anxiety or depression. Allergy/Immunology: No symptoms suggestive of allergic rhinitis. PHYSICAL EXAMINATION: VITAL SIGNS: Temperature is 97.8 degrees, pulse is 78, respirations 20, blood pressure is 110/76, oxygen saturation is 99%. HEENT: Head atraumatic, normocephalic. The patient is icteric. Pupils are equal and poorly reactive to light. No oral lesions. NECK: No lymphadenopathy or thyromegaly. CARDIOVASCULAR SYSTEM: S1, S2. RESPIRATORY SYSTEM: Has evidence of good air entry bilaterally. ABDOMEN: Distended. Soft. No significant tenderness. May have some slight tenderness in the left side of the abdomen. EXTREMITIES: Has edema in both lower extremities. CENTRAL NERVOUS SYSTEM: No obvious focal deficits noted. LABORATORY DATA: WBC is 10.41, hematocrit is 30.9, platelet count is 296,000. Sodium is 131, potassium 3.5, chloride is 90, bicarb is 29, BUN is 13, creatinine 0.6. Total bilirubin is 14.48, AST is 149, ALT is 55, alkaline phosphatase 262, ammonia level is 52. Abdominal ultrasound shows no evidence of ascites. There is fatty liver and splenomegaly. CT of the abdomen and pelvis shows no change from prior. It showed trace ascites. ASSESSMENT AND PLAN: 1. Abdominal pains, query etiology. Suspect probable spontaneous bacterial peritonitis. We will optimize pain control and place the patient on empiric antibiotics. 2. Alcoholic liver cirrhosis. This is stable at this time. The patient is not encephalopathic and does not have any significant fluid retention. His coagulation profile is not grossly abnormal. Ammonia level is not elevated. We will continue the patient on spironolactone as well as Lasix. 3. Chronic obstructive pulmonary disease. Nebulized bronchodilators as needed. 4. Diabetes mellitus. Monitor blood sugar levels. Maintain patient on sliding scale insulin. Check hemoglobin A1c level. 5. Gastroesophageal reflux disease. Maintain patient on proton pump inhibitor. 6. Hypertension. Optimize blood pressure control. 7. Tobacco use history. Recommend nicotine patch. 8. History of alcoholism. The patient indicated that he quit drinking alcohol about 2 weeks ago. We will watch for delirium tremens. We will maintain patient on thiamine, folic acid, as well as a multivitamin. Check magnesium and phosphorus levels, and replace those if needed. 9. Deep vein thrombosis prophylaxis. Sequential compression devices. 10. Gastrointestinal prophylaxis. Proton pump inhibitor. cc: Tien Oconnor MD
[2019-06-11] MEDS: CENTRUM SILVER PO SCH (09:52)
[2019-06-11] MEDS: VITAMIN B-1 PO SCH (09:52)
[2019-06-11] MEDS: LASIX PO SCH (09:52)
[2019-06-11] MEDS: FOLIC ACID PO SCH (09:52)
[2019-06-11] MEDS: ALDACTONE PO SCH (09:52)
--- NOTE | 2019-06-11 11:49 | PROGRESS NOTE ---
DATE: 06/11/2019 SUBJECTIVE: Patient reports he does have mild abdominal pain. No nausea or vomiting. OBJECTIVE: Vital Signs: Temperature 97.7 degrees, heart rate 80, respiratory 16, blood pressure 116/56, O2 saturation 98% on 2 L nasal cannula General: This is a very obese 64-year-old male, lying in bed, in no acute distress. Cardiovascular: S1, S2 heard. No murmurs, gallops, or rubs. Regular rate and rhythm. Respiratory: Clear bilaterally to auscultation. No work of breathing or using accessory muscles. Abdomen: Distended, soft. No significant tenderness. Abdomen looks obese but does not look to have any ascites. Extremities: Mild edema in both lower extremities. 1+ peripheral pulses present. No organomegaly. Neurological: Patient is alert and oriented x3. Moves 4 extremities. LABORATORY DATA: Reviewed. ASSESSMENT AND PLAN: 1. Abdominal pain. This patient was admitted to the hospital for this condition. We were suspecting on admission spontaneous bacterial peritonitis but with the abdominal ultrasound did not show enough ascitic fluid, I do not think that is the reason why he is having this problem. He has been placed on empiric antibiotic. We will continue with those now. The AST and ALT are mildly elevated but total bilirubin is very high with 14.48. At this point, even though the alkaline phosphatase is not very elevated and the abdominal ultrasound does not show any signs of biliary dictation, will proceed with MRCP and we will see what it shows. We will consult GI and we will go from there. 2. Alcoholic liver cirrhosis, stable at this time. Patient is not encephalopathic. He does not seem to be in any significant stool retention. The ammonia level is normal. We will continue to monitor. 3. COPD not in exacerbation. We will provide breathing treatments as needed only. 4. Diabetes mellitus type 2. We will continue with Accu-Chek before meals and also at bedtime and sliding scale insulin as well. 5. Gastroesophageal disease. We will continue with PPI. 6. Hypertension. Blood pressure is under control. We will continue with same management. 7. History of alcoholism. He reported that he quit drinking alcohol 2 weeks ago. He is not showing any signs of alcohol withdrawal. We will continue to monitor. cc: Tristan Smith MD
[2019-06-11] MEDS: MIRALAX PO SCH ×2 (11:56→23:05)
--- NOTE | 2019-06-11 14:30 | Diag Imaging Result Doc PS360 ---
EXAM: MRI MRCP (ABD W/O CONTRAST) 06/11/2019 HISTORY: elevated bilirrubin TECHNIQUE: Axial T2, in and out of phase T1, 3-D and MIPS MRCP, radial T2 coronal T2, water 3-D and axial water 3-D. COMMENT: There is no evidence of dilatation the pancreatic duct. The gallbladder is somewhat distended. There is ascites. The common bile duct is distended measuring 13 mm in transverse dimension. There is some intrahepatic biliary dilatation. There is a cystic lesion in the head of the pancreas measuring almost 15 mm in superior-inferior dimension. This was also in retrospect visible on the CT of 06/10/2019. There is located near the uncinate process. There is fairly abrupt narrowing of the distal common bile duct. IMPRESSION: 1. Stricture of the distal common bile duct. The possibility of a neoplasm in the duct or ampulla cannot be excluded. 2. Small cystic lesion in the head of the pancreas uncinate process. Electronically signed by Wolfgang Carlisle 06/11/2019 2:28 PM
--- NOTE | 2019-06-11 17:43 | GASTROENTEROLOGY CONSULTATION ---
DATE: 06/11/2019 REASON FOR CONSULT: Abdominal pain. HISTORY OF PRESENT ILLNESS: Mr. Bland is a 64-year-old male who presented to the hospital yesterday for abdominal pain on the left side and in the lower quadrant. The patient has complained of having nausea, but has denied any vomiting. The patient also mentioned that he has noticed blood in his stools. He rated his abdominal pain as 5/10 and described it as shooting pain. The patient is an alcoholic and drinks almost a 12 pack of beer daily and he also does marijuana 3 joints every day. The patient was recently admitted to the hospital on 06/03 for a decompensated alcoholic cirrhosis and suspected spontaneous bacterial peritonitis, hyponatremia, hyperkalemia, portal hypertension, hypertensive gastropathy as well as hyperbilirubinemia. The patient also has a history of COPD, hypertension, diabetes type 2, osteoarthritis, and GERD. Patient's liver function tests are all elevated. His total bilirubin 14.48, AST 149, ALT is 55, alkaline phosphatase is 252. Patient had an EGD done on 06/06, he had gastritis and portal hypertensive gastropathy. Random stomach biopsy revealed chronic inactive gastritis, patchy fresh bleeding, edema, congestion and negative H-pylori. PAST MEDICAL HISTORY: Hypertension, COPD, GERD, chronic pain, type 2 diabetes, liver cirrhosis. ALLERGIES: No known drug allergies. PAST SURGICAL HISTORY: Fasciotomy on right arm after a snake bite and right shoulder surgery. FAMILY HISTORY: No significant GI malignancies. Positive for cancer. SOCIAL HISTORY: The patient is single. He drinks alcohol almost everyday. He has quit smoking 2 months back but smokes marijuana almost every day. HOME MEDICATIONS: Aldactone 25 mg p.o. daily, DuoNeb 3 mL inhaler every 4 hours, Lasix 40 mg p.o. daily, Protonix 40 mg p.o. daily. Cefuroxime 500 mg p.o. every 12 hours and MiraLAX 17 grams p.o. twice a day. REVIEW OF SYSTEMS: As per HPI. Otherwise, 12 point review of system is negative. PHYSICAL EXAMINATION: Vital Signs: Temperature 97.7 degrees, pulse 85, respirations 20, blood pressure 129/65, oxygen saturation 96% on room air. The patient's weight is 205 pounds. BMI is 31.3 kg/m2. General: The patient is morbidly obese, alert, oriented x3, and in no acute distress. HEENT: Pale conjunctivitis, sclera icterus. PERRL. Neck: Neck is supple. Lungs: Clear to auscultation. Cardiovascular: Regular. S1. S2. Abdomen: Obese, distended, firm, tender on the left and the lower quadrant. Hypoactive bowel sounds heard in all 4 quadrants. Extremities: No clubbing, cyanosis. Generalized edema in the lower extremities. Neurologic: Alert and oriented x3. Nonfocal. Cranial nerves 2 to 12 grossly intact. LABS: WBC 10.41, RBC 3.22. Hemoglobin 10.4, hematocrit 30.9. Platelet count 290,000. Sodium 131, potassium 3.5, chloride 90, carbon dioxide 29, anion gap 12, BUN 13, creatinine 0.6, glucose 110, calcium 8.6, total bilirubin 14.4, AST 149, ALT 55, alkaline phosphatase 262. Ammonia 52. Urinalysis showed trace of protein, large amount of bilirubin. Toxicology report has shown presumptive positive cannabinoids IMAGING: MRCP showed stricture of the distal common bile duct. Possibility of neoplasm in the duct or ampulla cannot be excluded. Small cystic lesions in the head of the pancreas. Abdominal ultrasound showed no ascites, mild fatty liver with splenomegaly. IMPRESSION AND PLAN: 1. Abdominal pain. 2. Nausea 3. Mild fatty liver. 4. Splenomegaly. 5. Stricture of distal common bile duct 6. Marijuana abuse. 7. Alcohol abuse. PLAN: Mr. Bland is a 64-year-old male with a history of cirrhosis and alcohol abuse. GI has been consulted for his abdominal pain. The patient has been complaining of abdominal pain on the left quadrant and his lower quadrant. MRCP has shown that he has got stricture of the distal common bile duct and small cystic lesions of the head of the pancreas. We plan to do an ERCP tomorrow with Dr. Wheatley. Further plan of care will be based on the ERCP findings. We will continue to monitor the patient and follow the plan of care per PCP. This plan was discussed with Dr. Lakhani. Thank you for your consult. Please call us for any further questions or concerns. Dictated by MARYANN Edmondson for Ervin Lakhani MD Physician Attestation I have seen and examined the patient. I have discussed and reviewed the note by Angelique WOLF and agree with findings and plan as documented. In brief, Mr. Anibal Bland is a 64M with history of COPD, obesity, tobacco abuse, alcohol abuse who presented recently with presumed newly decompensated ETOH cirrhosis with jaundice. He underwent EGD that showed portal hypertensive gastropathy and non-H pylori gastritis. There was no ascites on imaging. He was discharged with plans for outpatient colonoscopy. He returned with worsening obstructive jaundice with MRCP showing distal CBD stricture and small 15mm cystic lesion in the uncinate process. Findings discussed with Dr. Galicai. Will plan for diagnostic ERCP on with Dr. Galicia. Coags and platelets WNL. NPO after MN. MTDD
[2019-06-11] MEDS: COLACE PO SCH (23:05)
[2019-06-11] MEDS ORDERED: DUONEB (A & A) ONE (23:33)
[2019-06-12] MEDS: DUONEB (A & A) INH SCH ×7 (03:45→23:34)
[2019-06-12] MEDS: ROCEPHIN 2 GM in NS 50 ML IV SCH (05:50)
[2019-06-12] MEDS: PRILOSEC PO SCH (06:17)
[2019-06-12] MEDS: HUMALOG SUBQ SCH ×4 (06:37→21:42)
[2019-06-12 07:03] LABS: BASO# 0.03 X1000 (0.0-0.2); BASO% 0.4 % (0.0-0.8); EOS# 0.13 X1000 (0.0-0.7); EOS% 1.6 % (0.0-10.0); HEMATOCRIT 31.4 % (42.0-52.0); HEMOGLOBIN 10.4 g/dL (14.0-18.0); IMM GRAN# 0.09 X1000 (0.0-0.04); IMM GRAN% 1.1 % (0.0-0.5); LYMPH# 0.75 X1000 (1.2-3.4); MCH 32.7 PG (27-31); MCHC 33.1 g/dL (33-37); MCV 98.7 FL (81-99); MONO# 0.84 X1000 (0.11-0.59); MONO% 10.1 % (1.7-9.3); MPV 9.6 FL (7.4-10.4); NEUT# 6.45 X1000 (1.4-6.5); NEUT% 77.8 % (42.2-75.2); PLT 284 X1000 (130-400); RBC 3.18 XMIL (4.7-6.1); RDW 17.6 % (11.5-14.5); WBC 8.29 X1000 (4.8-10.8)
[2019-06-12 07:10] LABS: INR 1.26
[2019-06-12 08:01] LABS: ESTIMATED GFR > 60
[2019-06-12 08:07] LABS: HEMOGLOBIN A1C 4.2 % (4.8-6.0)
[2019-06-12 08:17] LABS: AGAP 6; ALB/GLOB RATIO 0.6; ALBUMIN 2.5 g/dL (3.5-5.0); ALKALINE PHOSPHATASE 302 U/L (32-122); BUN 11 mg/dL (8-22); CALCIUM 8.5 mg/dL (8.8-10.2); CHLORIDE 89 mmol/L (98-107); COSMO 262; CREATININE 0.6 mg/dL (0.7-1.2); GLUCOSE 89 mg/dL (70-104); GOT 168 U/L (10-34); GPT 54 U/L (10-44); POTASSIUM 3.3 mmol/L (3.5-5.1); SODIUM 131 mmol/L (136-145); TCO2 36 mmol/L (25-35); TOTAL BILIRUBIN 14.44 mg/dL (0.20-1.00); TOTAL PROTEIN 6.5 g/dL (6.3-8.3)
[2019-06-12 08:21] LABS: MAGNESIUM 2.1 mg/dL (1.5-2.7); PHOSPHORUS 3.3 mg/dL (2.7-4.5)
[2019-06-12] MEDS ORDERED: ZOFRAN IV PRN (08:52)
[2019-06-12] MEDS ORDERED: KLOR-CON PO ONE (09:18)
--- NOTE | 2019-06-12 10:39 | PROGRESS NOTE ---
DATE: 06/12/2019 SUBJECTIVE: The patient reports mild abdominal pain. He is definitely getting better. No nausea and vomiting reported. OBJECTIVE: Vital Signs: Temperature 98.3 degrees, heart rate 88, respiratory rate 18, blood pressure 112/59, O2 saturation 98% on room air. General: This is a 64-year-old, chronically ill- appearing, male lying in bed in no acute distress. Cardiovascular: S1, S2 heard. No murmurs, gallops, or rubs. Regular rate and rhythm. Respiratory: Clear bilaterally to auscultation. No work of breathing or using accessory muscles. Abdomen: Distended, soft. Nontender to palpation. Abdomen looks obese but does not look to have ascites. Extremities: Mild edema in both lower extremities. Peripheral pulses present in both legs. Neurological: Patient is alert and oriented x3. Moves 4 extremities. LABORATORY DATA: Showed CBC with hemoglobin of 10.4. Sodium 131, potassium 3.3, normal creatinine, total bilirubin 14.44 with AST 160 ALT 54, alkaline phosphatase 302. ASSESSMENT AND PLAN: 1. Abdominal pain. That is the reason why this patient was admitted to the hospital. Considering his very elevated bilirubin, we decided to do an magnetic resonance cholangiopancreatography, which basically show stricture of the distal common bile duct. That is highly suspicious for cholangiocarcinoma. Gastroenterology has been consulted. The patient is going to have endoscopic retrograde cholangiopancreatography done today by Dr. Wheatley. We will see what it shows. 2. Alcoholic liver cirrhosis. That condition is stable at this time. The patient does not have any ascites. He is not encephalopathic. Ammonia level was normal at admission. Will continue to monitor the patient closely. 3. Chronic obstructive pulmonary disease. The patient is not in any exacerbation. We will provide breathing treatments as needed only. 4. Diabetes mellitus type 2. We will continue with Accu-Cheks before meals and also at bedtime. 5. Gastroesophageal reflux disease. We will continue with Protonix. 6. Hypertension. Blood pressure is under control. We will continue with the same management. 7. History of alcoholism. The patient reported drinking alcohol 2 weeks ago. He is not having any withdrawal symptoms. We will continue to monitor. cc: Tristan Smith MD
[2019-06-12] MEDS ORDERED: DIPRIVAN 1% ONE ×2 (12:33→13:14)
[2019-06-12] MEDS ORDERED: XYLOCAINE-MPF 2% ONE (12:34)
[2019-06-12] MEDS ORDERED: VERSED ONE (13:00)
--- NOTE | 2019-06-12 13:37 | ENDOSCOPY OPERATIVE NOTE ---
[facility] ENDOSCOPY OPERATIVE NOTE , ERCP PROCEDURE REPORT EXAM DATE: 06/12/2019 PATIENT NAME: Anibal Bland MR #: [id number] BIRTHDATE: 1955 ATTENDING: Joe Wheatley MD STATUS: inpatient HEALTH AND SAFETY TECHNICIAN: Mary Reynoso, Keke Dye, and Azul Kwon INDICATIONS: The patient is a 64 yr old male here for an ERCP due to jaundice and Dilated CBD and ab normal MRCP. PROCEDURE PERFORMED: ERCP with sphincterotomy/papillotomy ERCP with stent placement ERCP with foreign body removal MEDICATIONS: Per Anesthesia CONSENT: The patient understands the risks and benefits of the procedure and understands that these r isks include, but are not limited to: sedation, allergic reaction, infection, perforation and/or bleeding. Alternative means of evaluation and treatment include, among others: physical exam, x-rays, and/or surgical intervention. The patient elects to proceed with this endoscopic procedure. HISTORY AND PHYSICAL: 06/12/2019 DESCRIPTION OF PROCEDURE: During intra-op preparation period all mechanical and medical equipment was checked for proper function. Hand hygiene and appropriate measures for infection prevention was taken. After the risks, benefits and alternatives of the procedure were thoroughly explained, Informed was verified, confirmed and timeout was successfully executed by the treatment team. With the patient in left semi-prone position, medications were admini stered intravenously.The [id number] ([id number]) was passed from the mouth into the esophagus and further advanc ed from the esophagus into the stomach. From stomach scope was directed to the second portion of the duodenum. M ajor papilla was aligned with the duodenoscope. The scope position was confirmed fluoroscopically. Rest of the finding s/therapeutics are given below. The scope was then completely withdrawn from the patient and the procedure completed. Th e pulse, BP, and O2 saturation were monitored and documented by the physician and the nursing staff throughout the ent mahsa procedure. The patient was cared for as planned according to standard protocol. The patient was then discharged to [facility] in stable condition and with appropriate post procedure care. ERCP: A tree scout film prior to endoscope insertion appeared normal. The Major Papilla was located in t he second portion of the duodenum. The major papilla appeared normal. Bile duct cannulation was attempted using the sphincterotome with guidewire. Cannulation of the bile duct was performed with ease. Deep cannulation was successf ully achieved. A cholangiogram revealed a single short smooth stricture was seen in the distal common bile duct. Slu dge and pus came out of the papilla. A stone extraction was attempted using a stone extraction balloon. The bile du ct was swept three times. Sludge was removed from the bile duct. Multiple stone fragments were removed from the bile d uct. Under endoscopic and fluoroscopic guidance, a 10Fr X 5cm plastic stent was placed in the bile duct. ADVERSE EVENT: There were no complications. IMPRESSIONS: 1. Common bile duct stricture 2. Common bile duct stone(s) 3. S/p sphincterotomy and extract. 4. Plastic stent placement RECOMMENDATIONS: 1. Consult Surgery for evaluation 2. Resume regular diet 3. Disposition 4. Return to floor when standard parameters are met REPEAT EXAM: Return in 6 weeks for ERCP. Joe Wheatley MD eSigned: Joe Wheatley MD 06/12/2019 1:36 PM cc: Ervin Lakhani MD PATIENT NAME: Anibal Bland MR#: [id number]
--- NOTE | 2019-06-12 13:44 | Diag Imaging Result Doc PS360 ---
EXAM: ERCP-BILIARY AND PANCREATIC HISTORY: DILATED BILE DUCT, JAUNDICE TECHNIQUE: Three views COMPARISON: None FINDINGS: Contrast fills a dilated common bile duct. The distal common bile duct does not fill with contrast. The last image shows a biliary stent. Electronically signed by Braydon Pierre 06/12/2019 1:42 PM
[2019-06-12] MEDS: COLACE PO SCH ×2 (15:01→21:41)
[2019-06-12] MEDS: MIRALAX PO SCH ×2 (15:01→21:41)
[2019-06-12] MEDS: ALDACTONE PO SCH (15:03)
[2019-06-12] MEDS: VITAMIN B-1 PO SCH (15:03)
[2019-06-12] MEDS: FOLIC ACID PO SCH (15:03)
[2019-06-12] MEDS: LASIX PO SCH (15:03)
[2019-06-12] MEDS: CENTRUM SILVER PO SCH (15:03)
[2019-06-12] MEDS: PERIDEX MT SCH (21:41)
[2019-06-13] MEDS: ATIVAN IV PRN ×2 (03:54→20:46)
[2019-06-13] MEDS: DUONEB (A & A) INH SCH ×6 (04:07→23:30)
[2019-06-13 07:21] LABS: BASO# 0.02 X1000 (0.0-0.2); BASO% 0.2 % (0.0-0.8); EOS# 0.06 X1000 (0.0-0.7); EOS% 0.6 % (0.0-10.0); HEMATOCRIT 32.1 % (42.0-52.0); HEMOGLOBIN 10.4 g/dL (14.0-18.0); IMM GRAN# 0.03 X1000 (0.0-0.04); IMM GRAN% 0.3 % (0.0-0.5); LYMPH% 9.4 % (20.5-51.1); MCHC 32.4 g/dL (33-37); MCV 98.8 FL (81-99); MONO# 0.85 X1000 (0.11-0.59); MONO% 8.9 % (1.7-9.3); MPV 9.8 FL (7.4-10.4); NEUT# 7.69 X1000 (1.4-6.5); NEUT% 80.6 % (42.2-75.2); PLT 285 X1000 (130-400); RBC 3.25 XMIL (4.7-6.1); RDW 17.6 % (11.5-14.5); WBC 9.55 X1000 (4.8-10.8)
[2019-06-13 07:25] LABS: INR 1.37; PROTIME 17.1 Seconds (11.0-16.0)
[2019-06-13] MEDS: PRILOSEC PO SCH (07:43)
[2019-06-13] MEDS: HUMALOG SUBQ SCH ×4 (07:57→22:30)
[2019-06-13] MEDS: ROCEPHIN 2 GM in NS 50 ML IV SCH (08:02)
[2019-06-13 08:10] LABS: AGAP 10; ALB/GLOB RATIO 0.6; ALBUMIN 2.7 g/dL (3.5-5.0); ALKALINE PHOSPHATASE 282 U/L (32-122); BUN 14 mg/dL (8-22); CHLORIDE 95 mmol/L (98-107); COSMO 271; CREATININE 0.6 mg/dL (0.7-1.2); ESTIMATED GFR > 60; GLUCOSE 105 mg/dL (70-104); GOT 136 U/L (10-34); GPT 61 U/L (10-44); POTASSIUM 3.7 mmol/L (3.5-5.1); SODIUM 135 mmol/L (136-145); TCO2 30 mmol/L (25-35); TOTAL BILIRUBIN 13.64 mg/dL (0.20-1.00)
[2019-06-13] MEDS: ZOSYN 3.375 GM in NS 50 ML IV SCH ×3 (10:41→21:49)
[2019-06-13] MEDS: MIRALAX PO SCH ×2 (11:34→20:45)
[2019-06-13] MEDS: ALDACTONE PO SCH (11:35)
[2019-06-13] MEDS: FOLIC ACID PO SCH (11:35)
[2019-06-13] MEDS: PERIDEX MT SCH ×2 (11:35→20:45)
[2019-06-13] MEDS: COLACE PO SCH ×2 (11:35→20:45)
[2019-06-13] MEDS: VITAMIN B-1 PO SCH (11:35)
[2019-06-13] MEDS: CENTRUM SILVER PO SCH (11:35)
[2019-06-13] MEDS: LASIX PO SCH (11:35)
--- NOTE | 2019-06-13 12:14 | PROGRESS NOTE ---
DATE: 06/13/2019 SUBJECTIVE: Patient reports no abdominal pain. He reports feeling better. No fever, nausea, vomiting. OBJECTIVE: Vital Signs: Temperature 98.0 degrees, heart rate 80, respiratory rate 18, blood pressure 152/50, O2 saturation 98% on room air. General: This is a 64-year-old male lying in bed, in no acute distress. HEENT: Head is normocephalic, atraumatic. Mucous membranes dry with very icteric sclerae and pale conjunctivae. Cardiovascular: S1, S2 heard. No murmurs, gallops, or rubs. Regular rate and rhythm. Respiratory: Clear bilaterally to auscultation. No work of breathing or using accessory muscles. Abdomen: Distended, obese, nontender to palpation. No ascites noted. Extremities: Mild edema in both lower extremities. Peripheral pulses present in both legs. Neurological exam: Patient alert and oriented x3. Moves 4 extremities. LABORATORY DATA: White cell count 9.55, hemoglobin 10.4, hematocrit 32.1, platelets 285,000. BMP reveals normal creatinine with total bilirubin 13.64 with ALT 136, AST 61. ASSESSMENT AND PLAN: 1. Common bile duct stricture. The patient was admitted to the hospital for very elevated bilirubin. MRCP reveals stricture of the common bile duct. An ERCP was done yesterday and they were able to place a stent there. The report describes pus coming out from there, so we are going to start this patient on Zosyn. The stricture could also be secondary to cholangiocarcinoma in any case. The stricture described suspicious for cholangiocarcinoma. At this point, we will continue to monitor this patient closely. 2. Alcohol liver cirrhosis. Condition is stable at this time. He is not encephalopathic. Ammonia level was normal on admission. Will continue to monitor. 3. Chronic obstructive pulmonary disease. Patient is not in exacerbation. We will continue to provide breathing treatments as needed only. 4. Diabetes mellitus type 2. We will continue with Accu-Chek before meals and also at bedtime. 5. Gastroesophageal reflux disease. We will continue with Protonix. 6. Hypertension. Blood pressure is under control. We will continue with the same management. 7. History of alcoholism. The patient reported drinking alcohol 2 to 3 weeks ago. He is not showing any signs of alcohol withdrawal. We will continue to monitor. 8. Disposition. We will continue to monitor this patient. cc: Tristan Smith MD
[2019-06-13] MEDS: OXY IR PO PRN ×2 (15:27→20:45)
--- NOTE | 2019-06-13 15:30 | GASTROENTEROLOGY PROGRESS NOTE ---
DATE: 06/13/2019 SUBJECTIVE: Mr. Bland is a 64-year-old male resting in bed. He has denied any nausea, vomiting, or abdominal pain. The patient wanted to eat some real food. We have advanced his diet to a regular diet. The patient has denied having any bowel movements today but mentioned having one yesterday. OBJECTIVE: Vital Signs: Temperature 98.3 degrees, pulse 87, respirations 17, blood pressure 121/60, oxygen saturation 99% on room air. His weight is 205 pounds. BMI is 31.3 kg/m2. General: Morbidly obese. Alert, oriented x3, and in no acute distress. HEENT: Pale conjunctivae. No icterus. Neck: Supple. Lungs: Clear to auscultation. Cardiovascular: Regular rate and rhythm. Abdomen: Obese, firm, distended, nontender. Hypoactive bowel sounds heard in all 4 quadrants. Extremities: No clubbing, no cyanosis, generalized edema in the lower extremities. Neurologic: Alert, oriented x3. LABORATORY DATA: WBCs are 9.55, RBC 3.25, hemoglobin 10.4, hematocrit is 32.1, platelet count is 285,000. Sodium 135, potassium 3.7, chloride 95, carbon dioxide 30, anion gap 10, BUN 14, creatinine is 0.6, glucose 105, calcium 9.0, total bilirubin is 13.64, AST 136, ALT 61, alkaline phos 282, albumin 2.7. IMAGING: An ERCP x-ray showed that the contrast fills a dilated common bile duct. The distal common bile duct does not fill with contrast. The last image shows a biliary stent. ERCP: It showed common bile duct stricture, common bile duct stones, status post sphincterectomy and extract, plastic stent placed. IMPRESSION AND PLAN: Choledocholithiasis Biliary stricture Obstructive jaundice Alcohol abuse Marijuana abuse PLAN: Mr. Bland is a 64-year-old male with a history of cirrhosis and alcohol abuse. GI is following him for his abdominal pain. An ERCP was done yesterday and a stent was placed. The patient is currently on a regular diet. We will follow him up in 6 weeks for the removal of the stent. Will continue patient with PPI 40 mg daily. The patient is on a bowel regimen, MiraLAX 17 g p.o. twice a day and Colace 100 g twice a day. The patient is on antiemetic Zofran 4 mg for his nausea and vomiting. We will continue to monitor the patient and follow the plan of care per PCP. This plan was discussed with Dr. Lakhani. Please call us for any further questions or concerns. Dictated by MARYANN Edmondson for Ervin Lakhani MD Physician Attestation I have seen and examined the patient. I have discussed and reviewed the note by Angelique WOLF and agree with findings and plan as documented. In brief, Mr. Anibal Bland is a 64M with history of COPD, obesity, tobacco abuse, alcohol abuse who presented recently with presumed decompensated ETOH cirrhosis with jaundice. He underwent EGD that showed portal hypertensive gastropathy and non-H pylori gastritis. There was no ascites on imaging. He was discharged with plans for outpatient colonoscopy. He returned with worsening obstructive jaundice with MRCP showing distal CBD stricture and small 15mm cystic lesion in the uncinate process. ERCP with sphincterotomy on 06/12 showed choledocholithiasis, purulent material, sludge, and smooth stricture. A 10Fr x 5cm stent was placed. Patient is doing well without complaints. Patient can be discharged once LFTs start to downtrend. He is on zosyn; however, VSS without leukocytosis or significant abdominal pain. Recommend transitioning antibiotics to oral ciprofloxacin 500mg q12 hours and flagyl 500mg TID and continuing for 5 days of treatment. He will need follow-up with Dr. Galicia to arrange removal of stent in 6 weeks. Patient will also need outpatient surgery consultation for evaluation for elective cholecystectomy. I am not sure if he actually has cirrhosis at this time. Will sign off. Please call with questions. MTDD
[2019-06-14] MEDS: DUONEB (A & A) INH SCH ×6 (03:30→23:17)
[2019-06-14] MEDS: ZOSYN 3.375 GM in NS 50 ML IV SCH ×3 (05:10→16:55)
[2019-06-14 07:36] LABS: BASO# 0.05 X1000 (0.0-0.2); BASO% 0.6 % (0.0-0.8); EOS# 0.14 X1000 (0.0-0.7); EOS% 1.6 % (0.0-10.0); HEMATOCRIT 31.9 % (42.0-52.0); HEMOGLOBIN 10.4 g/dL (14.0-18.0); IMM GRAN# 0.05 X1000 (0.0-0.04); IMM GRAN% 0.6 % (0.0-0.5); LYMPH# 1.28 X1000 (1.2-3.4); LYMPH% 14.8 % (20.5-51.1); MCH 32.5 PG (27-31); MCHC 32.6 g/dL (33-37); MCV 99.7 FL (81-99); MONO# 0.77 X1000 (0.11-0.59); MONO% 8.9 % (1.7-9.3); MPV 9.7 FL (7.4-10.4); NEUT# 6.33 X1000 (1.4-6.5); NEUT% 73.5 % (42.2-75.2); PLT 302 X1000 (130-400); RDW 17.3 % (11.5-14.5); WBC 8.62 X1000 (4.8-10.8)
[2019-06-14] MEDS: PRILOSEC PO SCH (07:37)
[2019-06-14 07:43] LABS: INR 1.17
[2019-06-14 08:11] LABS: AGAP 11; ALB/GLOB RATIO 0.6; ALBUMIN 2.6 g/dL (3.5-5.0); ALKALINE PHOSPHATASE 247 U/L (32-122); BUN 12 mg/dL (8-22); CALCIUM 9.1 mg/dL (8.8-10.2); CHLORIDE 94 mmol/L (98-107); COSMO 267; CREATININE 0.7 mg/dL (0.7-1.2); ESTIMATED GFR > 60; GLUCOSE 108 mg/dL (70-104); GOT 107 U/L (10-34); GPT 54 U/L (10-44); POTASSIUM 3.9 mmol/L (3.5-5.1); SODIUM 133 mmol/L (136-145); TCO2 28 mmol/L (25-35); TOTAL BILIRUBIN 10.03 mg/dL (0.20-1.00); TOTAL PROTEIN 6.8 g/dL (6.3-8.3)
[2019-06-14] MEDS: HUMALOG SUBQ SCH ×5 (08:17→22:08)
[2019-06-14] MEDS: MIRALAX PO SCH ×2 (11:29→22:09)
[2019-06-14] MEDS: FOLIC ACID PO SCH (11:30)
[2019-06-14] MEDS: ALDACTONE PO SCH (11:30)
[2019-06-14] MEDS: LASIX PO SCH (11:30)
[2019-06-14] MEDS: PERIDEX MT SCH ×2 (11:30→22:03)
[2019-06-14] MEDS: COLACE PO SCH ×2 (11:30→22:03)
[2019-06-14] MEDS: VITAMIN B-1 PO SCH (11:30)
[2019-06-14] MEDS: CENTRUM SILVER PO SCH (11:30)
--- NOTE | 2019-06-14 15:35 | PROGRESS NOTE ---
DATE: 06/14/2019 INTERVAL HISTORY: The patient is status post ERCP with bile stent placement. Doing well today. Tolerating p.o. discomfort minimal. No acute events overnight. No new complaints. REVIEW OF SYSTEMS: Twelve point review of systems negative except as per interval history. LABS: WBC 8.6, hemoglobin 10.4, hematocrit 31.9, platelets 302,000. Sodium 133, potassium 3.9, BUN 12, creatinine 0.7, bilirubin 10.0. VITALS: T-max 98.7 degrees, pulse 90, respirations 18, blood pressure 117/76, O2 saturation is 99% on room air. PHYSICAL EXAMINATION: General: No acute distress. Vitals: As above. HEENT: Normocephalic, atraumatic. Moist mucous membranes. Scleral icterus still present. Cardiovascular: Regular rate and rhythm. No murmurs noted. Pulmonary: Clear to auscultation bilaterally. Abdomen: Obese, soft, nontender, nondistended. Bowel sounds positive. Extremities: Peripheral pulses intact. No clubbing or cyanosis. Neurologic: Cranial nerves grossly intact. No focal deficits. Psychiatric: Normal mood and affect. Awake, alert, oriented x3. ASSESSMENT AND PLAN: 1. Common bile duct stricture, status post ERCP with stent placement. At the time of the report, there is description of pus coming out of the duct concerning for cholangitis, so he was placed on Zosyn. Doing pretty well overall, bilirubin coming down. We will likely monitor one more day but if he continues to do well, then we will transition to p.o. antibiotics and likely discharge home tomorrow. 2. Likely cholangitis. Patient with obstructing stone in the duct or stone/sludge in the bile duct and pus that came out during ERCP. On Zosyn currently, but continues to do well. Will likely transition to p.o. antibiotics and discharge home tomorrow. 3. Alcoholic cirrhosis, stable. Bilirubin trending down. 4. Chronic obstructive pulmonary disease. No sign of exacerbation. Monitor. 5. Diabetes. Acceptable control of glucose on current regimen. Monitor. 6. Gastroesophageal reflux disease. Continue PPI. 7. Hypertension. Reasonable control on current therapy. Monitor alcohol abuse. Patient counseled on cessation.
[2019-06-14] MEDS: OXY IR PO PRN (22:03)
[2019-06-14] MEDS: ATIVAN IV PRN (22:03)
[2019-06-15] MEDS: ZOSYN 3.375 GM in NS 50 ML IV SCH ×3 (00:25→10:56)
[2019-06-15] MEDS: DUONEB (A & A) INH SCH ×3 (03:13→12:54)
[2019-06-15] MEDS: HUMALOG SUBQ SCH ×2 (07:13→11:04)
[2019-06-15] MEDS: CENTRUM SILVER PO SCH (10:56)
[2019-06-15] MEDS: PERIDEX MT SCH (10:56)
[2019-06-15] MEDS: MIRALAX PO SCH (10:56)
[2019-06-15] MEDS: FOLIC ACID PO SCH (10:57)
[2019-06-15] MEDS: VITAMIN B-1 PO SCH (10:57)
[2019-06-15] MEDS: COLACE PO SCH (10:57)
[2019-06-15] MEDS: LASIX PO SCH (10:57)
[2019-06-15] MEDS: ALDACTONE PO SCH (10:57)
[2019-06-15 11:34] VITALS: BP 132/55
[2019-06-15] MEDS: PRILOSEC PO SCH (12:39)
--- NOTE | 2019-06-17 06:50 | DISCHARGE SUMMARY ---
ADMISSION DATE: 06/10/2019 DISCHARGE DATE: 06/15/2019 CONSULTATIONS: Ervin Lakhani MD DISCHARGE DIAGNOSES: 1. Common bile duct stricture. 2. Likely cholangitis. 3. Alcoholic cirrhosis. 4. Chronic obstructive pulmonary disease. 5. Diabetes. 6. Gastroesophageal reflux disease. 7. Hypertension. HOSPITAL COURSE: The patient presented with a history of alcoholic cirrhosis and previous suspected SBP. He presents to the hospital with abdominal pain primarily in the left side and possibly some abdominal distention. He had nausea without vomiting and constipation. He had significantly worsened jaundice and pruritus. Initial evaluation suggested further decompensation of his alcoholic cirrhosis with bilirubin approximately 14.5, AST 158, ALT 54, alkaline phosphatase in the 300s. Initial imaging workup with ultrasound and CT did not really show any new pathology, but MRCP was obtained which suggested possible stricture of the distal common bile duct and with the possibility of neoplasm not excluded. It also showed small cystic lesion of the head of the pancreas. GI was consulted and did ERCP, which did show a short smooth stricture in the distal common bile duct. They dredged the bile duct and did get significant sludge as well as some purulent material suggesting cholangitis. Multiple stone fragments were removed, as well. Sphincterotomy was performed and stent was placed. He was placed on Zosyn for likely cholangitis. After that, his LC did trend down, although very slowly. On discharge, bilirubin was 10, AST 107, ALT 54, alkaline phosphatase 247. He was transitioned to oral antibiotics and discharged to follow up with GI in 6 weeks for stent removal as well as outpatient General Surgery to discuss possible elective cholecystectomy. The patient's pain was resolved after the ERCP. The patient was again instructed to avoid alcohol completely. DISCHARGE DIET: Diabetic low salt. DISCHARGE MEDICATIONS: 1. Spironolactone 25 mg p.o. daily. 2. Augmentin 875 p.o. b.i.d. for another 5 days. 3. Trazodone 50 mg p.o. at bedtime as needed. 4. Albuterol inhaler as needed. 5. Lasix 40 mg p.o. daily. 6. MiraLAX 17 mg p.o. b.i.d. as needed for constipation. 7. Nicotine patch daily as needed. 8. Protonix 40 mg p.o. daily. FOLLOWUP PLAN: Patient discharged home to follow up with GI in approximately 6 weeks for stent removal. Patient to follow up with general surgery as an outpatient to discuss possible elective cholecystectomy. The patient to follow up with PCP. Patient instructed to avoid alcohol use.
== END 2019-06-15 15:57 | disposition home or self-care (01) | DRG 445 ==
LOC: ED 15:44 → EDIPHOLD 22:44 → SUATTDRO 22:44 → 4N 06-11 00:20
PROVIDERS: ATTEND Internal Medicine
PROC: EN.ERCP (2019-06-12 12:55)

== ENCOUNTER 2019-06-17 19:49 | Inpatient (IN) ==
--- NOTE | 2019-06-18 01:09 | PROVIDER DOCUMENTATION ---
HPI-General Adult - General Chief Complaint: Flu Symptoms Stated Complaint: general sickness Time Seen by Provider: 06/18/19 00:02 Source: patient Allergies/Adverse Reactions: Patient Allergies Allergy/AdvReac Type Severity Reaction Status Date / Time No Known Allergies Allergy Verified 06/10/19 20:13 Home Medications: Home Medication List Medication Instructions Recorded Confirmed Last Taken Type Albuterol 2.5MG/Ipratrop 0.5MG 3 ml INH RTQ4H #30 neb 06/07/19 06/18/19 06/16/19 07:00 Rx [Duoneb (A & A)] Furosemide [Lasix] 40 mg PO DAILY #30 tab 06/07/19 06/18/19 06/17/19 07:00 Rx Polyethylene Glycol 3350 [Miralax] 17 gm PO BID #10 powd.pack 06/07/19 06/18/19 06/17/19 20:00 Rx Spironolactone [Aldactone] 25 mg PO DAILY #30 tab 06/07/19 06/18/19 06/17/19 08:00 Rx Trazodone [Desyrel] 50 mg PO HS PRN PRN #14 tab 06/15/19 06/18/19 06/17/19 21:00 Rx Vancomycin [Vancocin] 125 mg PO Q6HR #32 cap 06/21/19 Unknown Rx - History of Present Illness -Gen Adult Nature of Presenting Problems: 64 YO M presents with c/o malaise and not feeling well. He was recently seen and discharged on 06/16/19 for alcoholic liver cirrhosis and cholangitis. He states he feels like he is having flu symptoms. He has been unable to control his bowels and bladder and he has weakness and has been unable to ambulate. Location of Pain/Injury: reports: none Onset/Duration: reports: 24 hours ago Timing: reports: still present, getting worse Context/Activities at Onset: reports: none Modifying Factors: improves with: nothing Associated Symptoms: reports: nausea. denies: cough, diaphoresis, diarrhea, fatigue, shortness of breath Similar Symptoms Previously?: Yes Recently seen or treated by another doctor?: Yes (released from here) Review of Systems - Adult - REVIEW OF SYSTEMS - ADULT Constitutional: reports: chills, fatique. denies: fever Eyes: denies: blurred vision, double vision Ears, Nose, Mouth & Throat: reports: no symptoms reported Cardiovascular: reports: edema. denies: chest pain Respiratory: reports: shortness of breath. denies: cough Gastrointestinal: reports: diarrhea. denies: abdominal pain, nausea Genitourinary: denies: dysuria Musculoskeletal: reports: muscle weakness, other (malaise) Integumentary: reports: no symptoms reported Neurological: reports: no symptoms reported Endocrine: reports: no symptoms reported Allergic/Immunologic: reports: no symptoms reported Past History - Adult - PAST MEDICAL HISTORY-ADULT Review of Records: reports: Old Records Reviewed, Social history reviewed & non- contributory. Major Childhood Illnesses: reports: denies history Cardiovascular: reports: HTN Respiratory: reports: COPD Gastrointestinal: reports: GERD Obstetrical/Gynecological: reports: denies history Genitourinary: reports: denies history Musculoskeletal: reports: arthritis, chronic pain Neurological: reports: other (chronic lower back pain and neuropathy of LE's) Psychiatric: reports: denies history Endocrine/Immune: reports: Diabetes Other Conditions: reports: denies history - PRIOR SURGERIES/PROCEDURES Surgical/Procedure History: reports: reviewed, not pertinent, orthopedic (extremity) (fasciotomy to the right arm after a snake bite) - PRIOR HOSPITALIZATIONS Prior Hospitalizations: reports: none - IMMUNIZATION STATUS Childhood Immunizations: See Nurse Assessment Flu Vaccine: See Nurse Assessment - FAMILY HISTORY Family History: reviewed, not pertinent - SOCIAL HISTORY Substance Use: alcohol Living Situation: alone Physical Exam-General - PHYSICAL EXAM-ADULT Initial Vital Signs Reviewed: Yes - CONSTITUTIONAL General Appearance: alert, obese - EYES Eyes: scleral icterus - HEAD, EARS, NOSE, MOUTH & THROAT HENMT: other (dry membranes) - NECK Neck: supple - RESPIRATORY Respiratory: lungs clear, normal breath sounds - CARDIOVASCULAR Cardiovascular: tachycardia - GASTROINTESTINAL (ABDOMEN) Abdominal Exam: other (obese) - MUSCULOSKELETAL Extremity: pedal edema - SKIN Integumentary: jaundice - NEUROLOGIC Neurologic: grossly normal - PSYCHIATRIC Psych/Mental Status: normal mood/affect, normal thought content, normal thought process, oriented x 3 Progress - PLAN OF CARE/RESULTS Progress/Plan/Lab Results: Vital Signs - 8 hr 06/17/19 19:50 Temperature 101.2 F H Pulse Rate 111 H Respiratory Rate 20 Blood Pressure 100/65 O2 Sat by Pulse Oximetry 95 06/17/19 20:20 Influenza Screen - Final Nasopharyngeal Orders Category Date Time Status Cardiac Monitoring DIRECTED Care 06/18/19 00:53 Active Nursing- Obtain EKG ONCE Care 06/18/19 00:52 Active CHEST-2 VIEWS [RAD] Stat Exams 06/18/19 00:54 Ordered CBC WITH ELECTRONIC DIFF [HEME] Stat Lab 06/18/19 00:52 Uncollected CK PROFILE [SP CHEM] Stat Lab 06/18/19 00:52 Ordered COMPREHENSIVE METABOLIC PANEL [CHEM] Stat Lab 06/18/19 00:52 Uncollected Flu Swab [INFLUENZA SCREEN A/B] Stat Lab 06/17/19 20:20 Completed PRO B-NATRIURETIC PEPTIDE Stat Lab 06/18/19 00:52 Ordered PROTIME WITH INR [COAG] Stat Lab 06/18/19 00:52 Ordered PTT [COAG] Stat Lab 06/18/19 00:52 Ordered TROPONIN T HIGH SENSITIVITY Stat Lab 06/18/19 00:52 Uncollected TSH Stat Lab 06/18/19 00:52 Uncollected URINALYSIS W/POSS RFLX CULT [URINALYSIS] Stat Lab 06/18/19 00:52 Uncollected EKG [EKG] Stat Ther 06/18/19 00:52 Ordered Result Diagrams: 06/21/19 06:11 06/21/19 06:11 - CHANGE OF SHIFT REPORT (ED Provider) 1 Report Given and Care Transferred to:: Dr. Potts Time of Transfer: 02:09 Items Pending: Labs, Other (clinical course, imaging) Departure - Departure Date of Disposition Decision: 06/18/19 Time of Disposition Decision: 04:22 DIAGNOSIS: Jaundice due to hepatitis, Alcoholic cirrhosis of liver, Anemia, Pyrexia Disposition: ADMITTED INPATIENT 09 Certified Medical Emergency: Emergent Condition: Stable - Critical Care Note This patient required my direct & personal management of CC.: No Attestation - Physician/ LAURI Attestation Patient care was provided by Advanced Practice Provider:: No The physician spent face to face time with patient:: Yes Advanced Practice Provider documentation review:: Supervising physician onsite and consulted in the evaluation and care of this patient. The physician did have a face to face encounter with the patient.
[2019-06-18 02:16] LABS: URINE SOURCE CLEAN CATCH
[2019-06-18 02:29] LABS: BASO# 0.08 X1000 (0.0-0.2); BASO% 0.8 % (0.0-0.8); EOS# 0.08 X1000 (0.0-0.7); EOS% 0.8 % (0.0-10.0); HEMATOCRIT 32.7 % (42.0-52.0); HEMOGLOBIN 10.5 g/dL (14.0-18.0); IMM GRAN# 0.08 X1000 (0.0-0.04); IMM GRAN% 0.8 % (0.0-0.5); LYMPH# 0.89 X1000 (1.2-3.4); LYMPH% 8.9 % (20.5-51.1); MCHC 32.1 g/dL (33-37); MCV 99.7 FL (81-99); MONO# 1.39 X1000 (0.11-0.59); MONO% 13.9 % (1.7-9.3); MPV 9.4 FL (7.4-10.4); NEUT# 7.51 X1000 (1.4-6.5); NEUT% 74.8 % (42.2-75.2); PLT 296 X1000 (130-400); RBC 3.28 XMIL (4.7-6.1); RDW 14.9 % (11.5-14.5); WBC 10.03 X1000 (4.8-10.8)
[2019-06-18 02:32] LABS: BILIRUBIN URINE SMALL (NEGATIVE); BLOOD URINE NEGATIVE (NEGATIVE); COLOR YELLOW; GLUCOSE URINE NEGATIVE (NEGATIVE); INR 1.25; KETONE URINE NEGATIVE (NEGATIVE); LEUKOCYTES URINE NEGATIVE (NEGATIVE); NITRITE URINE NEGATIVE (NEGATIVE); PH URINE 6.5; PROTEIN URINE TRACE mg/dL (NEGATIVE); PROTIME 15.9 Seconds (11.0-16.0); SP GRAVITY URINE 1.017; TURBIDITY URINE HAZY (CLEAR); UROBILINOGEN URINE NORMAL (NORMAL)
[2019-06-18 02:33] LABS: PTT 40.4 Seconds (22.3-41.8)
[2019-06-18 02:40] LABS: UR EPITHELIAL CELLS <10 /HPF (<10); URINE BACTERIA NEGATIVE /HPF; URINE RBC <10 /HPF (<10); URINE WBC <10 /HPF (<10)
[2019-06-18 02:42] LABS: URINE CASTS NONE SEEN; URINE CRYSTALS NONE SEEN; URINE SMALL ROUND CELLS NONE SEEN; URINE YEAST NONE SEEN
[2019-06-18 02:43] LABS: ESTIMATED GFR > 60
[2019-06-18 02:45] LABS: AGAP 13; ALB/GLOB RATIO 0.7; ALKALINE PHOSPHATASE 189 U/L (32-122); BUN 9 mg/dL (8-22); CALCIUM 8.7 mg/dL (8.8-10.2); CHLORIDE 89 mmol/L (98-107); COSMO 258; CREATININE 0.8 mg/dL (0.7-1.2); GLUCOSE 106 mg/dL (70-104); GOT 135 U/L (10-34); GPT 59 U/L (10-44); POTASSIUM 3.7 mmol/L (3.5-5.1); SODIUM 129 mmol/L (136-145); TCO2 27 mmol/L (25-35); TOTAL BILIRUBIN 7.37 mg/dL (0.20-1.00); TOTAL PROTEIN 7.1 g/dL (6.3-8.3)
--- NOTE | 2019-06-18 04:08 | ED EKG INTERP ---
This chart was entered by Macrina Fletcher Scribe, acting as scribe for Richard Potts DO. EKG Interpretation - EKG Time of EKG reading by physician:: 03:04 EKG Read and Signed by:: Richard Potts EKG Interpretation (*Must complete 3 of following elements*): Abnormal Rate: 103 Rhythm: ST Prue: left QRS: RBB NV Interval: normal ST Wave: normal Attestation - Physician/ LAURI Attestation Patient care was provided by Advanced Practice Provider:: No The physician spent face to face time with patient:: Yes Advanced Practice Provider documentation review:: Supervising physician onsite and consulted in the evaluation and care of this patient. The physician did have a face to face encounter with the patient. This chart was documented by the indicated scribe, (Macrina Fletcher Scribe) and accurately reflects the services I performed and decisions made by , Richard Potts DO, as attested by the provider's signature.
[2019-06-18] MEDS ORDERED: ROCEPHIN 1 GM in NS 50 ML IV ONE (04:12)
[2019-06-18] MEDS ORDERED: TYLENOL PO ONE (04:14)
[2019-06-18] MEDS ORDERED: NS 1,000 ML IV ONE ×2 (04:14→04:17)
[2019-06-18] MEDS ORDERED: ZOFRAN PO PRN (04:17)
[2019-06-18 05:07] LABS: MAGNESIUM 1.7 mg/dL (1.5-2.7); PHOSPHORUS 2.4 mg/dL (2.7-4.5)
[2019-06-18 05:18] LABS: UR AMPHETAMINES QUAL NONE DETECTED (NONE DETECT); UR BARBITUATES QUAL NONE DETECTED (NONE DETECT); UR BENZODIAZEPIN QUAL NONE DETECTED (NONE DETECT); UR CANNABINOIDS QUAL PRESUMPTIVE POSITIVE (NONE DETECT); UR COCAINE QUAL NONE DETECTED (NONE DETECT); UR METHADONE QUAL NONE DETECTED (NONE DETECT); UR OPIATES QUAL NONE DETECTED (NONE DETECT); UR OXYCODONE QUAL NONE DETECTED (NONE DETECT); UR PCP QUAL NONE DETECTED (NONE DETECT)
--- NOTE | 2019-06-18 05:26 | EKG Report ---
Test Performed on : 06/18/2019 03:04:19 AM Test Reason : CP Blood Pressure : / mmHG Vent. Rate : 103 BPM Atrial Rate : 103 BPM P-R Int : 142 ms QRS Dur : 142 ms QT Int : 416 ms P-R-T Axes : 069 -13 042 degrees QTc Int : 544 ms Sinus tachycardia. Right bundle branch block Abnormal ECG When compared with ECG of 03-JUN-2019 09:09, (Unconfirmed) Nonspecific T wave abnormality has replaced inverted T waves in Inferior leads Unconfirmed Result
[2019-06-18] MEDS: DUONEB (A & A) INH PRN ×4 (06:20→23:17)
--- NOTE | 2019-06-18 06:32 | Diag Imaging Result Doc PS360 ---
CHEST-2 VIEWS - 06/18/2019 INDICATION: cough COMPARISON: 06/03/2019 FINDINGS: Stable cardiomegaly and mild pulmonary vascular congestion. There has been decrease in the patchy atelectasis in the right lung base. No new infiltrates. There are some stable linear atelectasis or scarring in the lung bases. No pneumothorax or pleural effusion. IMPRESSION: Improvement from prior. Cardiomegaly. Bibasilar linear atelectasis. Electronically signed by Marc Dodson 06/18/2019 6:29 AM
--- NOTE | 2019-06-18 08:31 | HISTORY AND PHYSICAL ---
PRIMARY CARE PROVIDER: The patient does not have a primary care provider. DATE AND TIME: 06/18/2019 at 0515. CHIEF COMPLAINT: Flu-like symptoms. HISTORY OF PRESENT ILLNESS: Mr. Bland is a 64-year-old, male, who has a history of alcoholic cirrhosis, COPD, borderline diabetes mellitus type 2, obesity, hypertension, and GERD. He was just recently discharged from our facility on 06/16/2019. During this admission, he was treated for a common bile duct stricture, and did undergo an ERCP and had a stent placed by Dr. Wheatley. There was some suspicion of possible cholangitis. The patient was treated with Zosyn. It looks as though he did get a prescription for Augmentin. The patient states that initially upon discharge, he felt fine, though yesterday at approximately 12 in the afternoon, he did say that he had a sudden onset of fever, body aches, and chills. He did have some nausea, though did not have any vomiting and is not reporting any abdominal pain. After arriving to the ED, he did have several episodes of diarrhea. He denies any hematochezia or melena. He has been incontinent of bladder and bowel. He denies any dizziness or feeling lightheaded. He denies any chest pain. The patient does report some shortness of breath, though states that he is short of breath all the time, that this has not worsened. He does report cough, though states this is a cough that he has had for quite some time. It is occasionally productive with yellowish-colored sputum, though this has not worsened or increased in frequency. He denies any pain or burning with urination, but is reporting that he has been incontinent once or twice of his urine since arriving to the ER. He denies any pain, numbness, or tingling in extremities. The patient does have some swelling of his bilateral lower extremities, though he states this has not worsened. He has been reporting body aches and chills, stating he felt like he had a fever, though he did not know he was running a fever until he arrived to the ER. Upon evaluation in the ER, the patient did not have any leukocytosis noted, though he did have a fever upon arrival. He is anemic, though this appears to be stable. He does have elevated liver function tests, though this has improved since his last LFTs were drawn on 06/14/2019. We did perform a urinalysis, which was negative for any signs of infection. Urine drug screen was only positive for cannabinoids, which he admits to smoking on a regular basis. Alcohol was 0. He denies any alcohol use, stating that he has not drank since before his last admission to the hospital. They did do an influenza screen as well, which was negative. At this time, the patient will be placed inpatient admission for further treatment and evaluation of his fever. REVIEW OF SYSTEMS: A 14-point review of systems was conducted with the patient, and all were negative, except for pertinent positives mentioned in the above HPI. PAST MEDICAL HISTORY: 1. Hypertension. 2. COPD. 3. GERD. 4. Chronic pain. 5. Diabetes mellitus type 2. 6. Alcoholic cirrhosis. 7. Recent common bile duct stricture, status post ERCP with stent placement. PAST SURGICAL HISTORY: 1. Surgery to his right arm, which may be likely a fasciotomy secondary to compartment syndrome following a snake bite by a rattlesnake. He states this happened in 1993. 2. ERCP with stent placement for common bile duct stricture. SOCIAL HISTORY: The patient quit drinking approximately 3 weeks ago. Prior to this, he was a daily drinker. He did just recently quit smoking as well a few weeks ago. He does use smokeless tobacco though. He also admits to smoking marijuana on a regular basis. FAMILY HISTORY: Positive for cancer. ALLERGIES: The patient has no known allergies. HOME MEDICATIONS: We are being waiting for the patient's home medication list to be updated and verified, though he was just recently discharged with new medications of MiraLAX, NicoDerm patch, Augmentin, trazodone, Aldactone, DuoNeb nebulizer treatments of albuterol and Atrovent, Lasix, and Protonix. Once his medication list has been reconciled, we will continue appropriate medicines. DIAGNOSTIC DATA: White blood cell count is 10,030, hemoglobin 10.5, hematocrit 32.7, platelet count is 296,000. PT 15.9, INR 1.25, PTT is 40.4. Sodium 129, potassium 3.7, chloride 89, serum bicarb 27, BUN 9, creatinine 0.8, with a GFR of greater than 60, glucose 106, calcium 8.7. Phosphorus 2.4, magnesium 1.7. Total bilirubin is 7.37, AST 135, ALT 59, alkaline phosphatase 189, ammonia is 52. CPK is 22. Troponin T high sensitivity is 32. ProBNP is 223. Lipase 62. TSH is 1.63. Serum alcohol was 0. Urine drug screen was positive for cannabinoids. Urinalysis obtained via clean catch was positive for trace protein and small bilirubin. It was negative for glucose, ketones, nitrites, leukocytes, white blood cells, or bacteria. EKG showed sinus tachycardia and a right bundle-branch block at a rate of 103, with a QTc of 544. Chest x-ray showed improvement from prior. There was cardiomegaly and bibasilar linear atelectasis. This is per Radiology. PHYSICAL EXAMINATION: VITAL SIGNS: Temperature 100.8 degrees, heart rate 87, respirations 18, blood pressure is 112/84, oxygen saturation is 98% on room air. The patient did ask to be placed on a little bit of oxygen, stating that he thought it would make him feel better and his shortness of breath better. We did place him on nasal cannula 2 L at this time to see if this would help. He has stated that this did make him feel better. GENERAL: Mr. Bland is a 64-year-old, obese, male, who was resting in the ER stretcher. He was in no acute distress. He was awake, alert, and able to answer questions appropriately. HEENT: Head is atraumatic, normocephalic. Pupils are equal, round, reactive to light, were 3 mm bilaterally and brisk. There was some jaundice noted to bilateral sclerae. Oral mucosa was moist. Oropharynx was clear. The patient did have some black residue on his lips and teeth, though he did report that he has been dipping, using a smokeless tobacco product. NECK: Supple. Trachea midline. CARDIOVASCULAR: The patient has S1, S2 present. No murmurs, gallops, rubs appreciated, with a regular rate and rhythm. PULMONARY: The patient has symmetrical chest expansion bilaterally. Lung sounds did have wheezing noted to bilateral full shin. He was slightly diminished on the right lung base. ABDOMEN: Soft, though is distended. The patient does have a protuberant abdomen noted. He did have a large ventral hernia noted as well. He did report some slight tenderness in the left lower quadrant and right upper quadrant upon palpation. No rebound tenderness noted. Bowel sounds are present in all 4 quadrants, were normoactive. EXTREMITIES: No cyanosis noted. The patient does have some swelling noted to bilateral lower extremities, though he states this has not worsened. There was no pitting edema noted. He was able to move all extremities. Pulse, motor, and sensory were intact in all extremities. Radial pulses were 2+ bilaterally, pedal pulses 1+ bilaterally. Capillary refill is less than 3. INTEGUMENTARY: The patient's skin is pink, warm, and dry. NEUROLOGICAL: The patient is alert and oriented to person, place, time, and situation. He is able to move all extremities. There were no focal neurological deficits noted. The patient has reported, only since arriving to the ER, that he has had an episode or two of bladder and bowel incontinence, though prior to arriving to the ER, this has not previously happened. The patient is denying any numbness or tingling. He denies any recent injury, falls, or any neck or back pain. ASSESSMENT AND PLAN: 1. History of alcoholic cirrhosis. Though the patient's liver function tests are elevated, they have actually improved since he was discharged from the hospital. He is not reporting any abdominal pain at this time. He has no leukocytosis noted. We have placed a consult with Dr. Lakhani with Gastroenterology. Will await their evaluation and further recommendations for management. 2. Recent common bile duct stricture, status post endoscopic retrograde cholangiopancreatography with stent placement. The patient does have jaundice noted, though does have a history of alcoholic cirrhosis. His liver function tests are elevated, though they have actually improved since his discharge. He is reporting fever, body aches, and chills, though is denying any abdominal pain. He is reporting some nausea and diarrhea. We have placed stool studies, and we are awaiting these results at this time. We will await Dr. Lakhani's evaluation and further recommendations for management. 3. Diarrhea. As previously mentioned, we are awaiting stool studies to be performed, including a Clostridium difficile study. The patient has recently been on antibiotics. We will await these results and continue to follow. 4. Chronic obstructive pulmonary disease. The patient is having some wheezing. We will continue with as needed DuoNeb treatments and we have placed some supplemental oxygen for patient comfort. 5. Anemia. This does appear to be stable. Will continue to follow. 6. Diabetes mellitus. We have placed a sliding scale insulin per low-dose protocol, and will do pattern fingerstick blood sugars. 7. Deep vein thrombosis prophylaxis will be provided with sequential compression devices. The patient has been placed on the surgical floor with telemetry. He will have vital signs every 6 hours. Do strict intake and output and incentive spirometry. He will be on a clear liquid diet at this time. We will provide him with some gentle intravenous hydration with 1 bag of normal saline at 75 mL/h. After speaking with Dr. Gonzalez, given that the patient does have a fever, though has no leukocytosis, there is no pneumonia or urinary tract infection present, though he is having diarrhea. We are awaiting a Clostridium difficile study at this time. Given this, we did not order an antibiotic as of yet. We will await these results, and continue to follow. Also, his troponin T high sensitivity was elevated upon initial check at 32. We are going to do a series of troponins. The patient is denying any chest pain at this time. There do not appear to be any acute electrocardiogram changes noted. Further orders and recommendations pending hospital course, diagnostic studies, and physician evaluation. Dictated by MARYANN Wisdom for Matthew Gonzalez MD I have performed a face to face diagnostic evaluation. Labs/xrays- reviewed. Exam- Chest- clear, CV-regular, Abd- soft, distended. A/P- alcoholic cirrhosis- Admit, NPO, IV fluids, GI consult. Dr. Gonzalez cc: Matthew Gonzalez MD [facility]
[2019-06-18] MEDS: HUMULIN R SUBQ SCH ×3 (11:00→21:00)
--- NOTE | 2019-06-18 12:34 | Diag Imaging Result Doc PS360 ---
EXAM: CT ABD/PELVIS W/IV CONT ONLY INDICATION: R/o bilary obstruction TECHNIQUE: This exam was performed using automated exposure control, adjustment of mA or kV according to patient size, and/or use of iterative reconstruction technique. COMPARISON: 06/10/2019 FINDINGS: There is small volume ascites tracking around the liver and spleen and in the pelvis that is similar to the previous study. There is stable hepatosplenomegaly. There has been interval placement of a stent in the common bile duct. The common bile duct is less distended than the previous study. There is no intrahepatic biliary dilatation. The gallbladder is partially contracted. There appears be mild gallbladder wall thickening. However, this is probably due to partial contraction and the surrounding ascites. The pancreas is unremarkable. Nodular thickening of the left adrenal gland is stable. The kidneys are unremarkable. The GI tract is stable with no evidence of bowel wall thickening or obstruction. IMPRESSION: 1.Interval placement of common bile duct stent with the common bile duct decreasing in diameter since placement. 2.Approximately stable small volume ascites. 3.Mildly thickened gallbladder wall but is probably due to partial contraction and surrounding ascites. 4.Otherwise, the abdomen and pelvis are essentially stable. Electronically signed by Raffi Fletcher 06/18/2019 12:31 PM
--- NOTE | 2019-06-18 13:02 | Diag Imaging Result Doc PS360 ---
US ABDOMEN-COMPLETE - 06/18/2019 INDICATION: R/o obstruction of bilary stent COMPARISON: CT from 06/18/2019 FINDINGS: It is not possible to evaluate a biliary stent for patency with noninvasive imaging. The exam is also very challenging due to the patient's large size. The liver is grossly normal. The gallbladder is collapsed with nonspecific wall thickening. The spleen is enlarged measuring over 15.7 cm. Both kidneys are normal. The pancreas is obscured. The common bile duct is felt to measure about 1.4 cm. Aorta and IVC are obscured. Main portal vein is patent. IMPRESSION: As above. Electronically signed by Marc Dodson 06/18/2019 12:59 PM
--- NOTE | 2019-06-18 14:15 | GASTROENTEROLOGY CONSULTATION ---
DATE: 06/18/2019 REASON FOR CONSULTATION: Diarrhea. HISTORY OF PRESENT ILLNESS: Mr. Bland is a 64-year-old male with a history of hypertension, COPD, GERD, chronic pain, type 2 diabetes, obesity, alcohol abuse, marijuana abuse, and decompensated alcoholic cirrhosis, presented to the ER yesterday with symptoms of fever, abdominal pain, chills and diarrhea. Patient recently had a EGD done which showed portal hypertensive gastropathy and non H-pylori gastritis. There was no ascites on imaging at that time, he was discharged with plans of doing an outpatient colonoscopy. He returned back with the worsening obstructive jaundice with MRCP showing distal CBD stricture and small 15 mm cystic lesion in the uncinate process. An ERCP was done on 06/[address] Wheatley and stent was placed. Currently patient is complaining of flu like symptoms, diarrhea, abdominal pain rating it 7/10 and describing it as severe cramping. He mentioned having more than 10 bowel movement, liquid in consistency, uncontrollable. The patient has lower extremity edema which has been the same since his last visit. PAST MEDICAL HISTORY: Hypertension, COPD, GERD, chronic pain, type 2 diabetes, decompensated alcoholic cirrhosis, obesity, alcohol abuse, marijuana abuse, CBD stricture status post ERCP and stent placement. PAST SURGICAL HISTORY: Fasciotomy in the right hand after a snake bite, right shoulder surgery, ERCP with stent placement for common bile duct stricture. ALLERGIES: No known drug allergies. FAMILY HISTORY: No significant GI malignancies. Positive for cancer. SOCIAL HISTORY: The patient is single. He drinks alcohol almost every day. He has quit smoking 2 months back, but smokes marijuana almost every day. HOME MEDICATIONS: Aldactone 25 mg daily, DuoNeb 3 ml INH Q4 hrs PRN, Lasik 40 mg daily, Miralax 17 g po BID, Augmentin 8.75/125 1 tab BID , Trazodone 50 mg HS. REVIEW OF SYSTEMS: As per HPI. Otherwise, 12 point review of systems is negative. PHYSICAL EXAMINATION: Vital Signs: Temperature 100.8, pulse 100, respirations 18, blood pressure 112/84, oxygen saturation 95% on 5 liters nasal cannula. General: He is alert, oriented x3, and morbidly obese, in no acute distress. Answering questions appropriately. Vital Signs: The patient's weight is 284 pounds. BMI is 4.3 kg/m2. HEENT: Pale conjunctivae. No icterus. PERRL. Neck: Supple. Lungs: Wheezing heard in the anterior lobes. Abdomen: Soft, morbidly obese. tender in the left and the right upper quadrant. Bowel sounds are hypoactive. Extremities: No clubbing, no cyanosis. Generalized edema in lower extremities. Pedal pulses 1+ present bilaterally. Neurologic: Alert, oriented times three. Nonfocal. Cranial nerves 2 through 12 are grossly intact. LABORATORY DATA: WBCs are 10.03, RBCs 3.28, hemoglobin is 10.5, hematocrit is 32.7, platelet count is 296. PT 15.9, INR is 1.25. Sodium 129, potassium 3.7, chloride 89, carbon dioxide 27, anion gap 13. BUN 9, creatinine 0.8, glucose 106, calcium 8.7, phosphorus 2.4, magnesium 1 7. Total bilirubin 7.37, AST 135, ALT 59, alkaline phos 189. Ammonia is 52, albumin is 3.0, lipase is 62. TSH is 1.63. Urinalysis has shown a small amount of bilirubin and trace of protein. Toxicology report has shown presumptive positive for cannabinoids. IMAGING: Chest x-ray done on admission showed improvement from the prior, cardiomegaly, bibasilar atelectasis. His abdominal ultrasound showed gallbladder is collapsed with nonspecific wall thickening. The spleen is enlarged. Kidneys are normal. Pancreas is obscured. Common bile duct is felt to measure about 1.4 cm. Aorta and IVC are obscured. Main portal vein is patent. The patient's abdomen and pelvis CT today has shown interval placement of common bile duct stents with common bile duct decrease in diameter. Approximately stable small volume ascites, mild thickening gallbladder wall, but it is probably due to the partial contraction and surrounding ascites. The abdomen and pelvis are essentially stable. IMPRESSION AND PLAN: 1. Diarrhea. 2. Abdominal pain. 3. CBD stricture s/p ERCP. 4. Decompensated Alcoholic cirrhosis. 5. Splenomegaly. 6. Ascites 6.Marijuana abuse 7. Alcohol abuse. 8. Morbid obesity PLAN: Mr. Bland is a 64-year-old male with a history of alcoholic cirrhosis, alcohol abuse and marijuana abuse. GI has been consulted for his diarrhea. The patient's stool studies have been pending. His hepatitis panel has been pending. The patient is currently on a clear liquid diet, and he is able to tolerate his diet. Awaiting the results of his stool studies and hepatitis panel. We will continue to monitor the patient and follow the plan of care per PCP. This plan was discussed with Dr. Lakhani. Thank you for your consult. Please call us for any further questions or concerns. Dictated by MARYANN Edmondson for Ervin Lakhani MD [facility]
--- NOTE | 2019-06-18 15:46 | PROGRESS NOTE ---
DATE: 06/18/2019 SUBJECTIVE: I have seen and examined Mr. Bland today. Mr. Bland is a 64-year-old gentleman who is known to have alcohol induced cirrhosis of the liver. He got admitted recently for CBD obstruction. The patient underwent ERCP and stent placement with Dr. Wheatley on 06/12/2019. Subsequently, he was discharged home on 06/16/2019. Documented that he went home on Augmentin. Mr. Bland referred that he has been fair until yesterday. He started having chills, subjective fever, abdominal discomfort, and multiple diarrhea bowel movements. He came to the emergency room where he was evaluated. He was found to have a temperature of 101.3, so he has been admitted. OBJECTIVE: Current Vital Signs: Blood pressure is 131/67, pulse of 88, respirations 16, temperature 98.2 degrees. General: Mr. Bland is a 64-year-old, gentleman. He is in bed. No distress. HEENT: Mucosa is pink. He is icteric on the sclerae. Chest: Good air entry bilaterally. A few crackles in the posterior lung field. Cardiovascular: Regular rate and rhythm. Abdomen: Protuberant. Minimally tender in the lower abdomen. No guarding. Bowel sounds present. There is a fluid shift dullness. [employer] T[employer]ER: The patient is awake, alert, oriented. LABORATORY DATA: WBC is 10.03, hemoglobin is 10.5, platelet count 297,000. Chemistry is also reviewed. Total bilirubin is 7.37, it is actually tending down. AST and ALT are minimally elevated, but they are also trending down. ASSESSMENT: 1. Diarrhea associated with fever and chills. The patient was on antibiotics. There is concern he could potentially have Clostridium difficile or this could just be a medication side effect. We are still waiting for stool to determine Clostridium difficile antigen and the toxin. Mr. Bland has not had any more bowel movements since he entered the hospital. He could also potentially just have a viral illness with gastroenteritis. 2. Recently treated for common bile duct obstruction with stent placement. 3. History of alcohol induced cirrhosis of the liver complicated with mild ascites and splenomegaly. cc: Madhu Lucero MD
[2019-06-19] MEDS: DUONEB (A & A) INH PRN ×2 (03:58→08:41)
[2019-06-19] MEDS: HUMULIN R SUBQ SCH ×4 (07:23→21:00)
[2019-06-19 07:37] LABS: HEMATOCRIT 31.4 % (42.0-52.0); HEMOGLOBIN 10.2 g/dL (14.0-18.0); MCH 33.1 PG (27-31); MCHC 32.5 g/dL (33-37); MCV 101.9 FL (81-99); MPV 9.3 FL (7.4-10.4); RBC 3.08 XMIL (4.7-6.1); RDW 14.9 % (11.5-14.5); WBC 6.57 X1000 (4.8-10.8)
[2019-06-19 07:43] LABS: INR 1.29; PROTIME 16.3 Seconds (11.0-16.0)
[2019-06-19 08:20] LABS: AGAP 10; ALB/GLOB RATIO 0.6; ALBUMIN 2.6 g/dL (3.5-5.0); ALKALINE PHOSPHATASE 141 U/L (32-122); BUN 7 mg/dL (8-22); CALCIUM 8.5 mg/dL (8.8-10.2); CHLORIDE 96 mmol/L (98-107); COSMO 258; CREATININE 0.6 mg/dL (0.7-1.2); ESTIMATED GFR > 60; GLUCOSE 93 mg/dL (70-104); GOT 127 U/L (10-34); GPT 52 U/L (10-44); POTASSIUM 3.6 mmol/L (3.5-5.1); SODIUM 130 mmol/L (136-145); TCO2 24 mmol/L (25-35); TOTAL BILIRUBIN 5.47 mg/dL (0.20-1.00); TOTAL PROTEIN 6.8 g/dL (6.3-8.3)
[2019-06-19] MEDS ORDERED: SODIUM CHLORIDE 0.9% INJ SCH (10:00)
[2019-06-19] MEDS: PEPCID IV SCH ×2 (10:57→22:31)
[2019-06-19] MEDS: CULTURELLE PO SCH ×2 (10:57→22:28)
--- NOTE | 2019-06-19 12:19 | GASTROENTEROLOGY PROGRESS NOTE ---
DATE: 06/19/2019 SUBJECTIVE: Mr. Bland is a 64-year-old, male resting in bed. He has denied any nausea, vomiting. Complained about generalized abdominal tenderness, but mentioned that it was much better than what it was yesterday. The patient did have a liquid bowel movement today. He is currently on a clear liquid diet, which he is not happy about, and was complaining that if he does not get anything in the hospital, he might leave and go home. OBJECTIVE: Vital Signs: Temperature 98.6 degrees, pulse 91, respirations 16, blood pressure 124/49, oxygen saturation 97% on room air. The patient's weight is 284 pounds. BMI is 43.3 kg/m2. HEENT: Pale conjunctivae. No icterus. PERRL. Neck: Supple. Lungs: Wheezing heard in the anterior lungs. Cardiovascular: The patient is tachycardic. Abdomen: Morbidly obese. Generalized tenderness. Hypoactive bowel sounds heard in all 4 quadrants. Extremities: No clubbing. No cyanosis. Generalized edema in the lower extremities. Pedal pulses 1+ present bilaterally. Neurologic: Alert and oriented x3. LABORATORY DATA: WBCs of 6.57, RBC 3.08, hemoglobin 10.2, hematocrit is 31.4, platelet count is 265,000. PT is 16.3, INR is 1.29. Sodium 130, potassium 3.6, chloride 96, carbon dioxide 24, anion gap 10, BUN 7, creatinine is 0.6, glucose 93, calcium 8.5. Total bilirubin 5.47, AST 127, ALT 52, alkaline phosphatase 141, albumin is 2.6. IMAGING: The patient's abdomen and pelvis CT showed interval placement of common bile duct stent with common bile duct decreasing in diameter, approximately stable small-volume ascites, mildly thickened gallbladder wall, but it is probably due to partial contraction and surrounding ascites. Abdominal ultrasound has shown that his liver is grossly normal, gallbladder is collapsed with nonspecific wall thickening, spleen is enlarged measuring over 15.7 cm, kidneys are normal, pancreas is obscured, common bile duct is felt to measure about 1.4 cm, aorta and IVC are obscured, main portal vein is patent. IMPRESSION AND PLAN: Diarrhea Abdominal pain CBD stricture s/p ERCP Cirrhosis Ascites Obesity Alcohol abuse Anemia PLAN: Mr. Bland is a 64-year-old, male with a history of alcoholic cirrhosis, alcohol abuse, and marijuana abuse. GI is following him for his diarrhea. We are still awaiting the patient's stool study results and his hepatitis panel. The patient is on a clear liquid diet. He is currently receiving Pepcid 20 mg IV twice a day. The patient is on multivitamin and Culturelle. We will continue to monitor the patient, and follow the plan of care per PCP. This plan was discussed with Dr. Fragoso. Please call us for any further questions or concerns. Dictated by MARYANN Edmondson for Byron Fragoso MD cc: Byron Fragoso MD I have seen and examined the patient myself and I agree with the above plan of care. Please call us with any questions or concerns. MTDEdmar
[2019-06-19] MEDS ORDERED: ALBUMIN 25% IV ONE (15:10)
[2019-06-19] MEDS ORDERED: LASIX PO SCH (15:45)
[2019-06-19] MEDS ORDERED: ALDACTONE PO SCH (15:45)
--- NOTE | 2019-06-19 15:59 | PROGRESS NOTE ---
DATE: 06/19/2019 SUBJECTIVE: The patient is still complaining of some diarrhea, I think he had 2 episodes today, but they were not able to get the sample to send to the laboratory, on the other hand he is complaining of shortness of breath and he has a history of COPD, he is wheezing bilaterally, so I will put him on breathing treatment, he does not seem to be overloaded and his kidney function is fine so I will put this patient back on his home medications, spironolactone and Lasix, also will give him some albumin. His liver function tests are elevated, but a little bit better compared with yesterday. Gastroenterology Department following this patient pending stool studies. OBJECTIVE: Vital Signs: Temperature 98.8 degrees, pulse 84, respiratory rate 12, blood pressure 109/48, oxygen saturation 92 on room air. HEENT: Head normocephalic, no trauma. PERRLA. Neck: Supple. No JVD. No masses. Central trachea. Chest: Decreased breath sounds globally with prolonged expiratory phase and end-expiratory wheezing, some crepitus at the bases. Abdomen: Soft, protuberant. He does have some ascites, his liver is nontender but is hard to palpation. I do believe he has some splenomegaly. Extremities: Trace edema, no clubbing, no cyanosis. Neurological: The patient is awake, alert. He is oriented x3. No focal deficits. LABORATORY: WBC 6.5, hemoglobin 10.2, hematocrit 31.4, platelets 265,000. INR 1.2. Sodium 130, potassium 3.6, chloride 96, bicarbonate 24, BUN 7, creatinine 0.6, glucose 96, calcium 8.5, total bilirubin 5.4, AST 127, ALT 52, alkaline phosphatase 141. ASSESSMENT AND PLAN: 1. Diarrhea associated with some chills and subjective fever, this patient was on antibiotics at home, we are waiting for the stool studies to rule out C. difficile, he had 2 bowel movements today, but we were not able to take the sample, we will continue to monitor. I will advance his diet because he is tolerating p.o. and he is hungry and not complaining of abdominal pain. 2. Recently treated for common bile duct obstruction with stent placement, followed by Gastroenterology Department. 3. History of alcohol-induced cirrhosis, this patient is on furosemide and Aldactone at home. I will hold it right now because of his diarrhea, he seems to be euvolemic. He received a couple liters of fluid, so I will keep an eye on him at this moment. 4. Chronic obstructive pulmonary disease with mild exacerbation. I will put this patient on breathing treatment and monitor. 5. Gastroesophageal reflux disease. Continue with the same management. 6. Apparent history of type 2 diabetes, aware. Blood sugar seems to be under control. 7. Hyponatremia, stable. This is chronic. 8. History of alcohol abuse. As per the patient, he stopped drinking a month ago, and he is willing to stop completely. 9. Tobacco abuse. This patient has been highly advised against tobacco use. Apparently, as per the patient, also he stopped a month ago. 10. Drug use, this patient states that he has been doing marijuana on and off. He has been advised to stop it. cc: Blas Damon MD
[2019-06-19] MEDS: DUONEB (A & A) INH SCH ×3 (16:03→22:45)
[2019-06-19] MEDS: DESYREL PO PRN (22:28)
[2019-06-20] MEDS: DUONEB (A & A) INH SCH ×6 (03:34→22:56)
[2019-06-20] MEDS: HUMULIN R SUBQ SCH ×4 (07:00→21:56)
[2019-06-20 07:39] LABS: IRON SATURATION 33 %; TIBC 166 ug/dL; TOTAL IRON 55 ug/dL (53-167); UNBOUND IRON 111 ug/dL (112-346)
[2019-06-20 07:48] LABS: AGAP 11; ALB/GLOB RATIO 0.6; ALBUMIN 2.9 g/dL (3.5-5.0); ALKALINE PHOSPHATASE 134 U/L (32-122); BUN 6 mg/dL (8-22); CALCIUM 8.8 mg/dL (8.8-10.2); CHLORIDE 98 mmol/L (98-107); COSMO 262; CREATININE 0.7 mg/dL (0.7-1.2); ESTIMATED GFR > 60; GLUCOSE 98 mg/dL (70-104); GOT 116 U/L (10-34); GPT 52 U/L (10-44); POTASSIUM 4.1 mmol/L (3.5-5.1); SODIUM 132 mmol/L (136-145); TCO2 23 mmol/L (25-35); TOTAL PROTEIN 7.5 g/dL (6.3-8.3)
[2019-06-20 07:50] LABS: FERRITIN 444 ng/mL (30-400)
[2019-06-20] MEDS: CULTURELLE PO SCH ×3 (09:07→21:55)
[2019-06-20] MEDS: CENTRUM SILVER PO SCH (09:07)
[2019-06-20] MEDS: PEPCID IV SCH ×3 (09:07→21:56)
[2019-06-20 10:26] LABS: HEPATITIS PROFILE ACUTE SEE COMMENTS
[2019-06-20] MEDS: FOLIC ACID PO SCH (11:40)
--- NOTE | 2019-06-20 12:22 | GASTROENTEROLOGY PROGRESS NOTE ---
DATE: 06/20/2019 SUBJECTIVE: No acute overnight events. He was sitting on the side of the bed. Family at the bedside. The patient has denied any nausea or vomiting. He did mention that he had a couple of bowel movements today and his stools were collected and sent to the lab. The patient is currently on a GI soft diet. He is able to tolerate his diet well. He does mention that sometimes he has abdominal tenderness on the left quadrant and on the lower quadrant, but it is much better than what it was when he came into the hospital. OBJECTIVE: Vital Signs: Temperature 98.2 degrees, pulse 88, respirations 16, blood pressure 141/41, oxygen saturation 91% on room air. His weight is 284 pounds, BMI is 43.3 kg/m2. General: He is alert, oriented x3 and in no acute distress. HEENT: Pale conjunctivae. +icterus. PERRL. Neck: Supple. Lungs: Wheezing heard in the anterior lobes. Cardiovascular: Regular rate and rhythm. Abdomen: Obese, tender in the left lower quadrant. Hypoactive bowel sounds heard in all 4 quadrants. Extremities: No clubbing, no cyanosis. Generalized edema. Neurologic: He is alert and oriented x3. LABS: Hematologies from 06/19/2019 show WBC 6.57, RBC 3.08, hemoglobin 10.2, hematocrit is 31.4, platelet count is 265,000. Sodium 132, potassium 4.1, chloride 98, carbon dioxide 23, anion gap 11, BUN 6, creatinine 0.7, glucose 98, calcium 8.8. Iron 55, TIBC 166, ferritin 444. Total bilirubin is 5.60, AST 116, ALT 52, alkaline phosphatase is 134. IMPRESSION AND PLAN: - Cdiff - Abnormal LFTs - Decompensated ETOH/COLIN cirrhosis - Ascites - History of CBD stent s/p ERCP - History of alcoholism - Morbid obesity - Anemia A/P: Mr. Bland is a 64-year-old male with morbid obesity, alcoholism, marijuana use, recent diagnosis of decompensated ETOH cirrhosis with ascites, and CBD stricture with stones s/p ERCP sphincterotomy and stent placement who presented with fever, diarrhea, and abdominal pain found to have Cdiff. He was started on vancomycin. He reports abdominal pain and diarrhea is improving. LFTs downtrending. Imaging shows stent in place and no evidence of worsening obstruction/stones. Continue 10-14 day course of vancomycin. Patient to follow- up with Dr. Wheatley for removal of stent. Will need to follow-up with GI upon discharge for mgmt of cirrhosis as well. Will sign off. Please call with questions. Dictated by MARYANN Edmondson for Ervin Lakhani MD Physician Attestation I have seen and examined the patient. I have discussed and reviewed the note by Angelique WOLF and agree with findings and plan. Changes made in document above. MTDD
[2019-06-20] MEDS: VANCOCIN PO SCH ×2 (13:09→19:56)
--- NOTE | 2019-06-20 16:04 | PROGRESS NOTE ---
DATE: 06/20/2019 SUBJECTIVE: This patient is still having some diarrhea. I do not think it has been documented. I do not think this patient has been telling the nurse about it, but we found out that this patient's Clostridium difficile toxin is positive so I have started this patient on vancomycin p.o. He will be moved to a private room as well. He is still wheezing a little bit, so we will continue with the same management for his lungs. OBJECTIVE: Vital Signs: Temperature 99.3 degrees, pulse 87, respiratory rate 18, blood pressure 144/70, oxygen saturation 100% on nasal cannula. HEENT: Head normocephalic. No trauma. PERRLA. Neck: Supple. No JVD. No masses. Central trachea. Chest: Decreased breath sounds globally with prolonged expiratory phase and end-expiratory wheezing. Some crepitus at the bases. Abdomen: Soft, protuberant. He does have some distention and some ascites, his liver is hard to palpation. I do not feel any splenomegaly. Extremities: Trace edema. No clubbing. No cyanosis. Neurological: The patient is sleepy, but arousable. He is oriented. LABORATORY: Sodium 132, potassium 4.1, chloride 98, bicarbonate 23, BUN 6, creatinine 0.7 glucose 98, calcium 88, total bilirubin 5.6, AST 116, ALT 52, alkaline phosphatase 134, albumin 2.9. ASSESSMENT AND PLAN: 1. Diarrhea associated with Clostridium difficile colitis, I will start this patient on vancomycin p.o., his Clostridium difficile toxin is positive. I will continue holding his Lasix and spironolactone due to his diarrhea. Vital signs are stable though. We will continue to monitor. Once this patient is better, I will put him back on his home medications. 2. Recently treated for common bile duct obstruction with stent placement followed by Gastroenterology Department. 3. History of alcohol induced cirrhosis, like I mentioned before this patient is on furosemide and Aldactone at home. I have been holding this for now because of the diarrhea. He seems to be euvolemic at this moment, he received a couple L of fluid during admission, he is tolerating p.o. 4. Chronic obstructive pulmonary disease with mild exacerbation. Continue breathing treatment and monitor. 5. Gastroesophageal reflux disease. Continue with the same management. 6. Apparent history of type 2 diabetes aware. Blood sugar seems to be under control. 7. Hyponatremia. This is chronic, stable. 8. History of alcohol abuse. As per the patient, he stopped drinking 1 month ago and he is willing to stop completely. He has been advised against alcohol use. I will continue with daily cessation education. 9. Tobacco abuse. Apparently, he also stopped smoking a month ago, I will continue with a daily cessation education. 10. Drug use. Apparently, he is still doing some marijuana on and off. He has been advised to stop it completely. 11. Borderline low folic acid level, I will replace it. cc: Blas Damon MD
[2019-06-20] MEDS: TYLENOL PO PRN (16:49)
[2019-06-20] MEDS: DESYREL PO PRN (19:56)
[2019-06-21] MEDS: VANCOCIN PO SCH ×3 (02:34→14:48)
[2019-06-21] MEDS: DUONEB (A & A) INH SCH ×4 (03:34→16:08)
[2019-06-21] MEDS: TYLENOL PO PRN (06:29)
[2019-06-21] MEDS: HUMULIN R SUBQ SCH ×2 (07:03→14:08)
[2019-06-21 07:50] LABS: BASO# 0.04 X1000 (0.0-0.2); BASO% 0.7 % (0.0-0.8); EOS# 0.06 X1000 (0.0-0.7); EOS% 1.1 % (0.0-10.0); HEMATOCRIT 32.7 % (42.0-52.0); HEMOGLOBIN 10.8 g/dL (14.0-18.0); LYMPH# 1.02 X1000 (1.2-3.4); LYMPH% 17.9 % (20.5-51.1); MCH 33.3 PG (27-31); MCV 100.9 FL (81-99); MONO# 0.67 X1000 (0.11-0.59); MONO% 11.8 % (1.7-9.3); MPV 9.5 FL (7.4-10.4); NEUT% 68.5 % (42.2-75.2); PLT 243 X1000 (130-400); RBC 3.24 XMIL (4.7-6.1); RDW 14.8 % (11.5-14.5); WBC 5.69 X1000 (4.8-10.8)
[2019-06-21 08:30] LABS: AGAP 12; ALB/GLOB RATIO 0.7; ALBUMIN 2.9 g/dL (3.5-5.0); ALKALINE PHOSPHATASE 116 U/L (32-122); BUN 5 mg/dL (8-22); CHLORIDE 98 mmol/L (98-107); COSMO 263; CREATININE 0.6 mg/dL (0.7-1.2); ESTIMATED GFR > 60; GLUCOSE 96 mg/dL (70-104); GOT 98 U/L (10-34); GPT 48 U/L (10-44); POTASSIUM 3.6 mmol/L (3.5-5.1); SODIUM 133 mmol/L (136-145); TCO2 23 mmol/L (25-35); TOTAL BILIRUBIN 4.97 mg/dL (0.20-1.00); TOTAL PROTEIN 7.1 g/dL (6.3-8.3)
[2019-06-21] MEDS: CENTRUM SILVER PO SCH (08:52)
[2019-06-21] MEDS: FOLIC ACID PO SCH (08:52)
[2019-06-21] MEDS: PEPCID IV SCH ×2 (08:53→14:08)
[2019-06-21] MEDS: CULTURELLE PO SCH (08:53)
[2019-06-21 17:17] VITALS: BP 170/82
--- NOTE | 2019-06-21 19:47 | DISCHARGE SUMMARY ---
ADMISSION DATE: 06/18/2019 DISCHARGE DATE: 06/21/2019 DISPOSITION: Home. FOLLOWUP: PCP and Dr. Wheatley. CONSULTATION DURING THIS ADMISSION: GI was consulted. The patient was seen by Dr. Fragoso/Dr. Lakhani. INVASIVE PROCEDURES DONE DURING THIS ADMISSION: None. IMAGING STUDIES OF SIGNIFICANCE: 1. A chest x-ray did show improvement from prior cardiomegaly, bibasilar linear atelectasis. 2. Ultrasound of the abdomen showed the liver was grossly normal, gallbladder is collapsed, nonspecific wall thickening. Spleen enlarged measuring 15.7, both kidneys normal. 3. CT scan of the abdomen and pelvis showed stable small-volume ascites, mildly thickened gallbladder. ADMISSION DIAGNOSES: 1. Alcohol cirrhosis. 2. Common bile duct stricture. 3. Diarrhea. DIAGNOSIS AT THE TIME OF DISCHARGE: 1. Clostridium difficile diarrhea. 2. Recently treated for common bile duct obstruction with stent placement. 3. Alcohol-induced cirrhosis of the liver complicated with ascites and splenomegaly. 4. Mild coagulopathy secondary to liver disease. DISCHARGE MEDICATIONS: 1. Spironolactone 25 mg p.o. daily. 2. Albuterol. 3. Lasix 40 mg p.o. daily. 4. Trazodone 50 mg p.o. at bedtime. 5. Vancomycin 125 p.o. q.6 for 8 more days. PRESENTING COMPLAINT: Flu-like symptoms. HISTORY OF PRESENTING COMPLAINT: Mr. Bland is a 64-year-old gentleman who presented to the emergency room because of generalized weakness, fatigue, some diarrhea. The patient was on Augmentin at home. He was admitted for acute febrile illness. HOSPITAL COURSE: During the hospital course, Mr. Bland was found to be C diff-positive, was started on p.o. vancomycin and his diarrhea improved. The fever and generalized weakness also got better. Today, he feels much better. He has been tolerating his meals, sometimes 100, sometimes 50%. He has had no bowel movement today. He feels stronger. We think he is stable enough to be discharged and follow up with Dr. Wheatley. All the discharge instructions have been discussed with him and he voiced understanding. TIME SPENT FOR DISCHARGE: 32 minutes. cc: Madhu Lucero MD
== END 2019-06-21 18:06 | disposition home or self-care (01) | DRG 372 ==
LOC: SUPCPDRO → ED 19:49 → EDIPHOLD 19:49 → SUATTDRO 06-18 05:54 → OBSVTOIN 06-18 05:54 → 4N 06-18 17:11
PROVIDERS: ATTEND Internal Medicine